=== PATIENT | female | born 1965 | race Caucasian/White ===

== ENCOUNTER 2018-02-01 17:02 | Emergency (ER) | payer OTHER ==
--- NOTE | 2018-02-01 17:35 | ERPHSYRPT ---
- History of Present Illness Time Seen by Provider: 02/01/18 17:33 Source: patient, family Patient Subjective Stated Complaint: Patient complains of sheila leg pain 01/13. Patient appointment with neurologist on 02/02/18, but her pain is so bad she can 't take it. This has been going on since June and has gotten worse. Triage Nursing Assessment: Patient ambulates into ER and transfers self to bed. Patient complains of sheila leg pain 01/13. Patient denies sheila feet hurting. Patient states her legs are constantly throbbing/burning. No visible areas noted to sheila legs. Pulses present. No redness/swelling noted. Patient has appointment with neurology on 02/02/18. Patient left work early today due to the pain. Physician History: 52 y/o white female presents with bilat lower ext pain since jun 2017. pt is taking requip and gabapentin. pt is also taking cymbalta. pt has an appt to see a neurologist tomorrow. pt admits to taking more of her medications than prescribed. pt denies trauma. pt has had demerol in the past. pt states morphine gives her nausea. pt has had an extensive work up over last 8 months and no dx found. Method of Injury: other (no injury) Occurred: other (chronic over 8 months) Quality: constant, burning, sharpness Severity of Pain-Max: moderate Severity of Pain-Current: moderate Lower Extremities Pain: leg: bilateral, knee: bilateral, thigh: bilateral Modifying Factors: Improves With: nothing Associated Symptoms: none Allergies/Adverse Reactions: Penicillins Allergy (Unknown, Verified 02/01/18 17:18) morphine Allergy (Verified 02/01/18 17:18) Home Medications: Alprazolam 1 mg [Xanax 1 mg] 1 mg PO Q4-6HPRN PRN 05/31/15 [History] Duloxetine HCl [Cymbalta] 1 mg PO DAILY 03/19/16 [History] Hx Tetanus, Diphtheria Vaccination/Date Given: Yes Hx Influenza Vaccination/Date Given: Yes Hx Pneumococcal Vaccination/Date Given: No Immunizations Up to Date: Yes - Review of Systems Constitutional: No Symptoms, No Fever, No Chills Eyes: No Symptoms, No Discharge, No Eye Pain Ears, Nose, & Throat: No Symptoms, No Ear Pain Respiratory: No Symptoms, No Cough, No Cyanosis, No Dyspnea, No Stridor, No Wheezing Cardiac: No Symptoms, No Chest Pain Abdominal/Gastrointestinal: No Symptoms, No Abdominal Pain, No Nausea, No Vomiting, No Diarrhea Genitourinary Symptoms: No Symptoms, No Dysuria, No Frequency, No Hematuria Musculoskeletal: Other (bilat lower ext pain thighs to ankles), No Back Pain, No Neck Pain, No Deformity, No Fall, No Injury Skin: No Symptoms Neurological: No Symptoms Psychological: No Symptoms Endocrine: No Symptoms Hematologic/Lymphatic: No Symptoms Immunological/Allergic: No Symptoms All Other Systems: Reviewed and Negative - Past Medical History Pertinent Past Medical History: Yes Neurological History: No Pertinent History, Stroke ENT History: No Pertinent History Cardiac History: Myocardial Infarction ([place]) Respiratory History: No Pertinent History Endocrine Medical History: No Pertinent History Musculoskeletal History: No Pertinent History GI Medical History: No Pertinent History History: No Pertinent History Psycho-Social History: Anxiety, Depression Female Reproductive Disorders: No Pertinent History - Past Surgical History Past Surgical History: Yes Neuro Surgical History: No Pertinent History Cardiac: No Pertinent History Respiratory: No Pertinent History Gastrointestinal: No Pertinent History Genitourinary: No Pertinent History Musculoskeletal: No Pertinent History Female Surgical History: Section - Social History Smoking Status: Never smoker Exposure to second hand smoke: Yes Drug Use: none Patient Lives Alone: Yes - Female History Hx Last Menstrual Period: 3 years ago Hx Now: No - Nursing Vital Signs Nursing Vital Signs: Initial Vital Signs Temperature 98.5 F 02/01/18 17:07 Pulse Rate 99 H 02/01/18 17:07 Respiratory Rate 18 02/01/18 17:07 Blood Pressure 129/91 02/01/18 17:07 O2 Sat by Pulse Oximetry 98 02/01/18 17:07 Pain Scale Pain Intensity 8 - Physical Exam General Appearance: mild distress, alert, anxiety Eyes, Ears, Nose, Throat Exam: normal ENT inspection Neck Exam: normal inspection, non-tender, supple, full range of motion Cardiovascular/Respiratory Exam: chest non-tender, normal breath sounds, regular rate/rhythm, heart sounds normal Gastrointestinal/Abdominal Exam: non-tender Back Exam: normal inspection Hips Exam: bilateral: non-tender, normal inspection, normal range of motion, no evidence of injury Legs Exam: bilateral leg: normal inspection, normal range of motion, no evidence of injury, other (tenderness) Knees Exam: bilateral knee: normal inspection, normal range of motion, no evidence of injury, other (tender) Ankle Exam: bilateral ankle: normal inspection, normal range of motion, no evidence of injury, other (tender) Foot Exam: bilateral foot: non-tender (normal nv exam, no infection), normal inspection, normal range of motion, no evidence of injury, other (tender) DTR - Lower Extremities Exam: ankle (R): 2+, ankle (L): 2+ Neuro/Tendon Exam: normal sensation, normal motor functions, no evidence tendon injury, No motor deficit, No sensory deficit Mental Status Exam: alert, oriented x 3, cooperative Skin Exam: normal color SpO2: 98 Oxygen Delivery: Room Air Ordered Tests: Medication Summary Discontinued Medications Generic Name Dose Route Start Last Admin Trade Name Freq PRN Reason Stop Dose Admin Diazepam 5 mg 02/01/18 17:59 Valium 5 Mg PO 02/01/18 18:00 STAT ONE Meperidine HCl 50 mg 02/01/18 17:59 Demerol 50 Mg IM 02/01/18 18:00 STAT ONE Methylprednisolone Sodium Succinate 125 mg 02/01/18 18:04 Solu-Medrol 125 Mg IM 02/01/18 18:05 STAT ONE Promethazine HCl 12.5 mg 02/01/18 18:00 Phenergan 25 Mg Inj IM 02/01/18 18:01 STAT ONE - Progress Progress: pain not gone completely Counseled pt/family regarding: diagnosis, need for follow-up - Departure Time of Disposition: 18:31 Departure Disposition: Home Clinical Impression: Chronic lower limb pain Condition: Stable Critical Care Time: No Referrals: AUNG HIDALGO [Primary Care Provider] - Additional Instructions: keep your appointment you have with your neurologist tomorrow for further management
[2018-02-01] MEDS ORDERED: Valium 5 MG PO ONE (17:59)
[2018-02-01] MEDS ORDERED: DEMEROL 50 MG IM ONE (17:59)
[2018-02-01] MEDS ORDERED: Phenergan 25 MG INJ IM ONE (18:00)
[2018-02-01] MEDS ORDERED: solu-MEDROL 125 MG IM ONE (18:04)
[2018-02-01] MEDS ORDERED: Phenergan 25 MG INJ ONE (18:12)
[2018-02-01] MEDS ORDERED: Valium 5 MG ONE (18:13)
[2018-02-01] MEDS ORDERED: solu-MEDROL 125 MG ONE (18:13)
[2018-02-01] MEDS ORDERED: DEMEROL 50 MG ONE (18:13)
[2018-02-01 19:03] VITALS: BP 120/70; PULSE 80; O2SAT 97
== END 2018-02-01 19:03 | disposition home or self-care (01) ==
LOC: ED 17:02
DX: M79.662 Pain in left lower leg (principal); M79.661 Pain in right lower leg; Z79.899 Other long term (current) drug therapy
CPT/HCPCS: 96372; 99284; J2175; J2550; J2930; A9270-GY

== ENCOUNTER 2020-01-04 12:18 | Emergency (ER) | payer OTHER ==
--- NOTE | 2020-01-04 12:35 | ERPHSYRPT ---
- History of Present Illness Time Seen by Provider: 01/04/20 12:35 Source: patient Exam Limitations: no limitations Patient Subjective Stated Complaint: eye pain Triage Nursing Assessment: pt to ED c/o L eye pain onset last night .states she was at work and noticed eye irritation and redness, took out contacts without releif. reports pain has worsened overnight and is 8/10 currently. unable to completely open eye. reports cloudy vision in L eye, does not have L contact in at this time. no issues with R eye currently. eye appears red and irritated. no drainage at this time. lights in eyes worsening pain. Physician History: This is a 54-year-old white female who noticed in the afternoon yesterday that she started to have a left eye irritation. It became reddened. She took her contact out. Pain came on in the eye began watering. The redness became worse. Patient describes the pain as sharp and stabbing. Patient has her contact out but the symptoms have not improved. Patient states that she did not injure her eye and does not recall anything going into her left eye. Patient states that she sees cloudiness and was having difficulty making out shapes of the left eye. Patient denies head injury she denies strokelike symptoms. She has no dizziness no chest pain no shortness of breath. Timing/Duration: yesterday Location: left eye Severity: moderate Apparent Injury: no Associated Symptoms: burning, sensitivity to light, redness Visual Assistive Devices: Contacts Chemical Exposure: No Trauma: No Welding Arc/Tanning Bed Exposure: No Allergies/Adverse Reactions: Penicillins Allergy (Unknown, Verified 01/04/20 12:35) morphine Allergy (Verified 01/04/20 12:35) Home Medications: Alprazolam 1 mg [Xanax 1 mg] 1 mg PO Q4-6HPRN PRN 05/31/15 [History] Duloxetine HCl [Cymbalta] 1 mg PO DAILY 03/19/16 [History] Hx Tetanus, Diphtheria Vaccination/Date Given: Yes Hx Influenza Vaccination/Date Given: Yes Hx Pneumococcal Vaccination/Date Given: Yes Immunizations Up to Date: Yes Travel Risk - International Travel Have you traveled outside of the country in past 3 weeks: No - Coronavirus Screening Are you exhibiting any of the following symptoms?: No Close contact with a COVID-19 positive Pt in past 14-21 Days: No - Review of Systems Constitutional: No Symptoms Eyes: Eye Pain (Left), Eye Redness (Left), Foreign Body Sensation Ears, Nose, & Throat: No Symptoms Respiratory: No Symptoms Cardiac: No Symptoms Abdominal/Gastrointestinal: No Symptoms Genitourinary Symptoms: No Symptoms Musculoskeletal: No Symptoms Skin: No Symptoms Neurological: No Symptoms Psychological: No Symptoms Endocrine: No Symptoms Hematologic/Lymphatic: No Symptoms Immunological/Allergic: No Symptoms All Other Systems: Reviewed and Negative - Past Medical History Pertinent Past Medical History: Yes Neurological History: No Pertinent History, Stroke ENT History: No Pertinent History Cardiac History: Myocardial Infarction ([place]) Respiratory History: No Pertinent History Endocrine Medical History: No Pertinent History Musculoskeletal History: No Pertinent History GI Medical History: No Pertinent History History: No Pertinent History Psycho-Social History: Anxiety, Depression Female Reproductive Disorders: No Pertinent History - Past Surgical History Past Surgical History: Yes Neuro Surgical History: No Pertinent History Cardiac: No Pertinent History Respiratory: No Pertinent History Gastrointestinal: No Pertinent History Genitourinary: No Pertinent History Musculoskeletal: No Pertinent History Female Surgical History: Section Other Surgical History: ovarian cyst removed at age 20 - Social History Smoking Status: Never smoker Exposure to second hand smoke: Yes Drug Use: none Patient Lives Alone: Yes - Female History Hx Now: No - Nursing Vital Signs Nursing Vital Signs: Initial Vital Signs Temperature 97.9 F 01/04/20 12:23 Pulse Rate 100 H 01/04/20 12:23 Respiratory Rate 18 01/04/20 12:23 Blood Pressure 170/84 01/04/20 12:23 O2 Sat by Pulse Oximetry 98 01/04/20 12:23 Pain Scale Pain Intensity 8 - Physical Exam Vision Acuity Degree Evaluation Phase: Corrected Vision Acuity Left Eye: unable to assess Eye Exam: right eye: normal inspection, abnormal EOM, left eye: PERRL, EOMI, conjunctival inflammation, corneal abrasion Ears, Nose, Throat Exam: normal ENT inspection, moist mucous membranes Neck Exam: normal inspection, non-tender, supple, full range of motion Respiratory Exam: normal breath sounds, lungs clear, airway intact, No chest tenderness, No respiratory distress Cardiovascular Exam: regular rate/rhythm, normal heart sounds, normal peripheral pulses Gastrointestinal Exam: No tenderness Extremity Exam: normal inspection, normal range of motion, pelvis stable Neurologic: alert, oriented x 3, cooperative, roll off driver II-XII nml as tested, nml cerebellar function, nml station & gait, sensation nml Skin Exam: normal color, warm, dry Lymphatic: No adenopathy SpO2 Interpretation: normal O2 Delivery: Room Air - Course Nursing assessment & vital signs reviewed: Yes Ordered Tests: Medication Summary Discontinued Medications Generic Name Dose Route Start Last Admin Trade Name Janet PRN Reason Stop Dose Admin Hydromorphone HCl 1 mg 01/04/20 12:51 01/04/20 13:02 Hydromorphone 1 Mg/Ml Ampule IM 01/04/20 12:52 1 mg STAT ONE Administration Hydromorphone HCl Confirm 01/04/20 12:56 Hydromorphone 1 Mg/Ml Ampule Administered 01/04/20 12:57 Dose 1 mg .ROUTE .STK-MED ONE Ondansetron HCl 4 mg 01/04/20 12:52 01/04/20 12:59 Zofran Odt 4 Mg PO 01/04/20 12:53 4 mg STAT ONE Administration Ondansetron HCl Confirm 01/04/20 12:55 Zofran Odt 4 Mg Administered 01/04/20 12:56 Dose 4 mg .ROUTE .STK-MED ONE Tetracaine HCl 4 ml 01/04/20 12:51 01/04/20 12:59 Tetracaine 0.5% Steri-Unit Elena OP 01/04/20 12:52 4 ml STAT STA Administration Tetracaine HCl Confirm 01/04/20 12:55 Tetracaine 0.5% Steri-Unit Elena Administered 01/04/20 12:56 Dose 4 ml OP .STK-MED ONE - Progress Progress: improved, pain not gone completely, re-examined Progress Note: 01/04/20 13:28 Medical decision making: This patient has at least a corneal abrasion on the left side. She has significant conjunctivitis. She has significant pain. She is had no direct trauma to the eye and does not recall anything getting into her eye. Patient will use topical erythromycin ophthalmic ointment, oral steroids and [place] pain medicine over the weekend. She has an appointment that we scheduled for her to see an drapery cutter machine, Dr. Vazquez at [facility] in [facility]. Her appointment is January 07, 2020 at 1 PM. Counseled pt/family regarding: diagnosis, need for follow-up - Departure Departure Disposition: Home Clinical Impression: Left corneal abrasion Condition: Stable Critical Care Time: No Referrals: JUNE VIRAMONTES MD [Primary Care Provider] - Additional Instructions: Use the topical eye ointment as prescribed. In addition, take the steroid and pain medication as prescribed. If your symptoms worsen you can always come back to the emergency department over the weekend. Specifically, you may want to go to [facility] where there is an drapery cutter machine on staff if your symptoms worsen. You have an appointment to see Dr. Vazquez, an drapery cutter machine at [facility] in [facility]. Your appointment is at 1 PM on January 07, 2020. Prescriptions: Hydrocodone/APAP 5/325 [[place] 5/325 mg] 1 each PO Q6H PRN PRN #10 tablet MDD 4 PRN Reason: Pain Prednisone 10 mg [Deltasone 10 mg] 10 mg PO TID #12 tablet Erythromycin Base 3.5 gm [Erythromycin 3.5 GM OPHTH.] 3.5 gm OP QID #1 tube
[2020-01-04] MEDS ORDERED: TETRACAINE 0.5% STERI-UNIT SOL OP STA (12:51)
[2020-01-04] MEDS ORDERED: Hydromorphone 1 mg/ml Ampule IM ONE (12:51)
[2020-01-04] MEDS ORDERED: ZOFRAN ODT 4 MG PO ONE (12:52)
[2020-01-04] MEDS ORDERED: TETRACAINE 0.5% STERI-UNIT SOL OP ONE (12:55)
[2020-01-04] MEDS ORDERED: ZOFRAN ODT 4 MG ONE (12:55)
[2020-01-04] MEDS ORDERED: Hydromorphone 1 mg/ml Ampule ONE (12:56)
[2020-01-04] MEDS ORDERED: Erythromycin 3.5 GM OPHTH. OP ONE (13:27)
[2020-01-04] MEDS ORDERED: DELTASONE 20 MG ONE (13:30)
[2020-01-04 13:40] VITALS: BP 132/85; PULSE 105; O2SAT 96
[2020-01-05] MEDS ORDERED: DELTASONE 20 MG PO ONE (13:26)
== END 2020-01-04 13:51 | disposition home or self-care (01) ==
LOC: ED 12:18
DX: S05.02XA Injury of conjunctiva and corneal abrasion without foreign body, left eye, initial encounter (principal); X58.XXXA Exposure to other specified factors, initial encounter; Y93.89 Activity, other specified; Y92.89 Other specified places as the place of occurrence of the external cause; H10.9 Unspecified conjunctivitis
CPT/HCPCS: 96372; 99284; J1170; Q0162; A9270-GY

== ENCOUNTER 2020-04-30 11:10 | Emergency (ER) | payer OTHER ==
--- NOTE | 2020-04-30 11:14 | ERPHSYRPT ---
- History of Present Illness Time Seen by Provider: 04/30/20 11:13 Source: patient Exam Limitations: no limitations Physician History: This is a 54-year-old white female who has depression and anxiety issues. It is worse around the holidays since she has lost her family members. She presents today with a desire to have an antianxiety medication to go along with her antidepression of medication. She was unable to see her primary care doctor. Patient states she is not homicidal or suicidal. Severity of Symptoms-Max: moderate Severity of Symptoms-Current: moderate Context related to: other ( family members. Holiday season.) Associated Symptoms: anxiety, depressed Previous symptoms: same symptoms as today Allergies/Adverse Reactions: Penicillins Allergy (Unknown, Verified 01/04/20 12:35) morphine Allergy (Verified 01/04/20 12:35) Home Medications: Alprazolam 1 mg [Xanax 1 mg] 1 mg PO Q4-6HPRN PRN 05/31/15 [History] Duloxetine HCl [Cymbalta] 1 mg PO DAILY 03/19/16 [History] Hx Tetanus, Diphtheria Vaccination/Date Given: Yes Hx Influenza Vaccination/Date Given: Yes Hx Pneumococcal Vaccination/Date Given: Yes Travel Risk - International Travel Have you traveled outside of the country in past 3 weeks: No - Coronavirus Screening Are you exhibiting any of the following symptoms?: No Close contact with a COVID-19 positive Pt in past 14-21 Days: No - Past Medical History Pertinent Past Medical History: Yes Neurological History: No Pertinent History, Stroke ENT History: No Pertinent History Cardiac History: Myocardial Infarction ([place]) Respiratory History: No Pertinent History Endocrine Medical History: No Pertinent History Musculoskeletal History: No Pertinent History GI Medical History: No Pertinent History History: No Pertinent History Psycho-Social History: Anxiety, Depression Female Reproductive Disorders: No Pertinent History - Past Surgical History Past Surgical History: Yes Neuro Surgical History: No Pertinent History Cardiac: No Pertinent History Respiratory: No Pertinent History Gastrointestinal: No Pertinent History Genitourinary: No Pertinent History Musculoskeletal: No Pertinent History Female Surgical History: Section Other Surgical History: ovarian cyst removed at age 20 - Social History Smoking Status: Never smoker Exposure to second hand smoke: Yes Drug Use: none Patient Lives Alone: Yes - Review of Systems Constitutional: No Symptoms Eyes: No Symptoms Ears, Nose, & Throat: No Symptoms Respiratory: No Symptoms Cardiac: No Symptoms Abdominal/Gastrointestinal: No Symptoms Genitourinary Symptoms: No Symptoms Musculoskeletal: No Symptoms Skin: No Symptoms Neurological: No Symptoms Psychological: Anxiety, Depression Endocrine: No Symptoms Hematologic/Lymphatic: No Symptoms Immunological/Allergic: No Symptoms All Other Systems: Reviewed and Negative - Nursing Vital Signs Nursing Vital Signs: Initial Vital Signs Temperature 98.2 F 04/30/20 11:31 Pulse Rate 79 04/30/20 11:31 Respiratory Rate 18 04/30/20 11:31 Blood Pressure 127/58 04/30/20 11:31 O2 Sat by Pulse Oximetry 99 04/30/20 11:31 Pain Scale Pain Intensity 0 - Physical Exam General Appearance: no apparent distress, alert, anxiety Eyes, Ears, Nose, Throat Exam: normal ENT inspection, moist mucous membranes Neck Exam: normal inspection, non-tender, supple, full range of motion Respiratory Exam: normal breath sounds, lungs clear, airway intact, No chest te nderness, No respiratory distress Cardiovascular Exam: regular rate/rhythm, normal heart sounds, normal peripheral pulses Gastrointestinal/Abdominal Exam: soft, normal bowel sounds, No tenderness Extremities Exam: normal inspection, normal range of motion, No evidence of injury Neurological Exam: alert, tar leveler II-XII nml as tested, oriented x 3, anxious, depressed affect Appearance: appropriate appearance, appropriate insight Behavior/Eye Contact/Speech: alert & cooperative, good eye contact Thoughts/Hallucinations: normal thought pattern, no apparent hallucination Skin Exam: normal color, warm, dry SpO2 Interpretation: normal O2 Delivery: Room Air - Course Nursing assessment & vital signs reviewed: Yes - Progress Progress: unchanged Counseled pt/family regarding: diagnosis, need for follow-up - Departure Departure Disposition: Home Clinical Impression: Anxiety, Depression Condition: Stable Critical Care Time: No Referrals: JUNE VIRAMONTES MD [Primary Care Provider] - Additional Instructions: Take your medication as prescribed. Follow-up with your primary care doctor today to make arrangements for follow-up appointment. Prescriptions: Lorazepam 0.5 mg [Ativan 0.5 MG] 0.5 mg PO Q12H PRN PRN #5 tablet PRN Reason: Anxiety
[2020-04-30 12:14] VITALS: BP 120/54; PULSE 62; O2SAT 98
== END 2020-04-30 12:17 | disposition home or self-care (01) ==
LOC: ED 11:10
DX: F41.9 Anxiety disorder, unspecified (principal); F32.9 Major depressive disorder, single episode, unspecified
CPT/HCPCS: 99283

== ENCOUNTER 2020-05-06 14:52 | Emergency (ER) | payer OTHER ==
[2020-05-06] MEDS ORDERED: Sodium Chloride 0.9% 1000 ML 1,000 ML IV STA (15:33)
[2020-05-06] MEDS ORDERED: Zofran 4 MG/2 ML VIAL IV ONE (15:33)
[2020-05-06] MEDS ORDERED: Sodium Chloride 0.9% 1000 ML 1,000 ML ONE (15:36)
[2020-05-06] MEDS ORDERED: Zofran 4 MG/2 ML VIAL ONE (15:36)
[2020-05-06 16:01] LABS: Absolute Neutrophil Ct (ANC) 6.03 (1.4-6.9); BASOPHIL % 0.2 % (0.0-0.4); Basophil (Absolute #) 0.02 (0-0.4); Eosinophil (Absolute #) 0.09 (0-0.5); Hematocrit 41.6 % (35-47); Hemoglobin 13.7 gm/dl (12.0-16.0); Lymphocyte (Absolute #) 1.53 (1.0-4.6); Lymphocytes % 17.8 % (24.0-44.0); Mean Cell Volume 91.4 fl (78-100); Mean Corpuscular Hemoglobin 30.1 pg (26-32); Mean Corpuscular Hgb Concent. 32.9 g/dl (32-36); Mean Platelet Volume 10.3 fl (7.5-11.0); Monocyte (Absolute #) 0.92 (0.0-1.3); Monocytes % 10.7 % (0.0-12.0); Neutrophil % 70.3 % (36.0-66.0); Platelet Count 397 K/mm3 (150-450); Red Blood Count 4.55 M/mm3 (4.1-5.4); Red Cell Distribution Width 12.7 % (11.5-14.0); White Blood Count 8.6 K/mm3 (4.0-10.5)
--- NOTE | 2020-05-06 16:07 | ERPHSYRPT ---
- History of Present Illness Historian: patient Patient Subjective Stated Complaint: vomiting Triage Nursing Assessment: pt to ED c/o abd pain 5/10 and vomiting x 4 days. reports multiple episodes emesis daily. last PO intake fluids this am. denies urinary or bowel issues currently. abd tender to palp. reports emesis is bile d/t decreased intake. reports normal urinary output for pt. Physician History: 54 yo wf w N/V x 1 wk. Pt has mild subxyphoid pain rated a 3 which she states that is due to vomiting. Pt denies hematemesis/diarrhea/melena/hematochezia/dysuria/hematuria/fever/cough/chest pain. Pt was recently seen in ER for chest pain w neg workup. Timing/Duration: other (1wk) Activities at Onset: rest Quality: aching Abdominal Pain Onset Location: generalized abdomen Pain Radiation: no radiation Severity of Pain-Max: mild Severity of Pain-Current: mild Modifying Factors: Improves With: nothing, vomiting Associated Symptoms: loss of appetite, nausea, vomiting, weakness, No back, No chest pain, No diaphoresis, No diarrhea, No fever/chills, No fatigue, No headache, No heartburn, No neck pain, No rash, No shortness of breath, No syncope Previous symptoms: no prior history Allergies/Adverse Reactions: Penicillins Allergy (Unknown, Verified 05/06/20 15:15) morphine Allergy (Verified 05/06/20 15:15) Home Medications: Alprazolam 1 mg [Xanax 1 mg] 1 mg PO Q4-6HPRN PRN 05/31/15 [History] Duloxetine HCl [Cymbalta] 1 mg PO DAILY 03/19/16 [History] Hx Tetanus, Diphtheria Vaccination/Date Given: Yes Hx Influenza Vaccination/Date Given: Yes Hx Pneumococcal Vaccination/Date Given: Yes Travel Risk - International Travel Have you traveled outside of the country in past 3 weeks: No - Coronavirus Screening Are you exhibiting any of the following symptoms?: Yes Symptoms: Vomiting/Diarrhea, Loss of Taste or Smell, Headaches/Body Aches/ Fatigue Close contact with a COVID-19 positive Pt in past 14-21 Days: No - Review of Systems Constitutional: Fatigue, Weakness, No Fever, No Chills, No Lethargy, No Malaise, No Night Sweats, No Weight Loss Eyes: No Symptoms Ears, Nose, & Throat: No Symptoms Respiratory: No Symptoms Cardiac: No Symptoms Abdominal/Gastrointestinal: Abdominal Pain, Nausea, Vomiting, Appetite Changes, No Diarrhea, No Constipation, No Hematemesis, No Hematochezia, No Melena, No Dysphagia Genitourinary Symptoms: No Symptoms Musculoskeletal: No Symptoms Skin: No Symptoms Neurological: No Symptoms Psychological: No Symptoms Endocrine: No Symptoms Hematologic/Lymphatic: No Symptoms Immunological/Allergic: No Symptoms - Past Medical History Pertinent Past Medical History: Yes Neurological History: Stroke ENT History: No Pertinent History Cardiac History: Myocardial Infarction (HI) Respiratory History: No Pertinent History Endocrine Medical History: No Pertinent History Musculoskeletal History: No Pertinent History GI Medical History: No Pertinent History History: No Pertinent History Psycho-Social History: Anxiety, Depression Female Reproductive Disorders: No Pertinent History Other Medical History: possible HI, pt unsure - 2014 - Past Surgical History Past Surgical History: Yes Neuro Surgical History: No Pertinent History Cardiac: No Pertinent History Respiratory: No Pertinent History Gastrointestinal: No Pertinent History Genitourinary: No Pertinent History Musculoskeletal: No Pertinent History Female Surgical History: Section Other Surgical History: ovarian cyst removed at age 20 - Social History Smoking Status: Never smoker Exposure to second hand smoke: Yes Drug Use: none Patient Lives Alone: Yes Significant Family History: no pertinent family hx - Female History Hx Now: No (ablasion) - Nursing Vital Signs Nursing Vital Signs: Initial Vital Signs Temperature 98.2 F 05/06/20 15:02 Pulse Rate 112 H 05/06/20 15:02 Respiratory Rate 20 05/06/20 15:02 Blood Pressure 152/101 05/06/20 15:02 O2 Sat by Pulse Oximetry 98 05/06/20 15:02 Pain Scale Pain Intensity 5 - Physical Exam General Appearance: no apparent distress Eye Exam: PERRL/EOMI, eyes nml inspection, No scleral icterus, No pale conjunctivae Ears, Nose, Throat Exam: normal ENT inspection, TMs normal, pharynx normal, moist mucous membranes, No dry mucous membranes Neck Exam: normal inspection, non-tender, supple, full range of motion, No m eningismus, No mass, No Brudzinski, No Kernig's, No carotid bruit Respiratory Exam: normal breath sounds, lungs clear, airway intact, No chest tenderness, No respiratory distress Cardiovascular Exam: tachycardia, No murmur Gastrointestinal/Abdomen Exam: soft, normal bowel sounds, tenderness (Mild, diffuse) Pelvic Exam: not done Back Exam: normal inspection, normal range of motion, No CVA tenderness Extremity Exam: normal inspection, normal range of motion Neurologic Exam: alert, oriented x 3, cooperative, equity research associate II-XII nml as tested, normal mood/affect, nml cerebellar function, nml station & gait, sensation nml, No motor deficits, No sensory deficit Skin Exam: normal color, warm, dry, No rash Lymphatic Exam: No adenopathy SpO2 Interpretation: normal SpO2: 98 O2 Delivery: Room Air - Course Nursing assessment & vital signs reviewed: Yes Ordered Tests: Active Orders 24 hr Category Date Time Status AMYLASE Stat Lab 05/06/20 15:35 Completed CBC W DIFF Stat Lab 05/06/20 15:35 Completed CMP Stat Lab 05/06/20 15:35 Completed CULTURE,URINE Stat Lab 05/06/20 16:01 Received HCG,QUALITATIVE URINE Stat Lab 05/06/20 16:11 Completed LIPASE Stat Lab 05/06/20 15:35 Completed TROPONIN Q3H Lab 05/06/20 16:15 Completed UA W/RFX UR CULTURE Stat Lab 05/06/20 16:01 Completed Urine Triage Profile Stat Lab 05/06/20 16:01 Completed Medication Summary Discontinued Medications Generic Name Dose Route Start Last Admin Trade Name Janet PRN Reason Stop Dose Admin Sodium Chloride 1,000 mls @ 999 mls/hr 05/06/20 15:33 05/06/20 16:40 Sodium Chloride 0.9% 1000 Ml IV 05/06/20 16:33 Infused .Q1H1M STA Infusion Sodium Chloride Confirm 05/06/20 15:36 Sodium Chloride 0.9% 1000 Ml Administered 05/06/20 15:37 Dose 1,000 mls @ ud .ROUTE .STK-MED ONE Ondansetron HCl 4 mg 05/06/20 15:33 05/06/20 15:38 Zofran 4 Mg/2 Ml Vial IV 05/06/20 15:34 4 mg STAT ONE Administration Ondansetron HCl Confirm 05/06/20 15:36 Zofran 4 Mg/2 Ml Vial Administered 05/06/20 15:37 Dose 4 mg .ROUTE .STK-MED ONE Lab/Rad Data: Laboratory Result Diagrams 05/06/20 15:35 05/06/20 15:35 Laboratory Results 05/06/20 05/06/20 05/06/20 Range/Units 16:15 16:11 16:01 WBC (4.0-10.5) K/mm3 RBC (4.1-5.4) M/mm3 Hgb (12.0-16.0) gm/dl Hct (35-47) % MCV (78-100) fl MCH (26-32) pg MCHC (32-36) g/dl RDW (11.5-14.0) % Plt Count (150-450) K/mm3 MPV (7.5-11.0) fl Gran % (36.0-66.0) % Eos # (Auto) (0-0.5) Absolute Lymphs (auto) (1.0-4.6) Absolute Monos (auto) (0.0-1.3) Lymphocytes % (24.0-44.0) % Monocytes % (0.0-12.0) % Eosinophils % (0.00-5.0) % Basophils % (0.0-0.4) % Absolute Granulocytes (1.4-6.9) Basophils # (0-0.4) Sodium (137-145) mmol/L Potassium (3.5-5.1) mmol/L Chloride (98-107) mmol/L Carbon Dioxide (22-30) mmol/L Anion Gap (5-15) MEQ/L BUN (7-17) mg/dL Creatinine (0.52-1.04) mg/dL Estimated GFR ML/MIN Glucose (74-106) mg/dL Calcium (8.4-10.2) mg/dL Total Bilirubin (0.2-1.3) mg/dL AST (14-36) U/L ALT (0-35) U/L Alkaline Phosphatase (38-126) U/L Troponin I 0.013 (0.000-0.034) ng/mL Serum Total Protein (6.3-8.2) g/dL Albumin (3.5-5.0) g/dL Amylase (30-110) U/L Lipase (23-300) U/L Urine Color (YELLOW) Urine Appearance (CLEAR) Urine pH (5-6) Ur Specific [place] (1.005-1.025) Urine Protein (Negative) Urine Ketones (NEGATIVE) Urine Blood (0-5) [place] Urine Nitrite (NEGATIVE) Urine Bilirubin (NEGATIVE) Urine Urobilinogen (0-1) mg/dL Ur Leukocyte Esterase (NEGATIVE) Urine WBC (Auto) (0-5) /HPF Urine RBC (Auto) (0-2) /HPF U Epithel Cells (Auto) (FEW) /HPF Urine Bacteria (Auto) (NEGATIVE) /HPF Urine Culture Reflexed (NO) Urine Glucose (NEGATIVE) mg/dL Urine HCG, Qual NEGATIVE (Negative) Urine Opiates Level NEGATIVE (NEGATIVE) Ur Methadone NEGATIVE (NEGATIVE) Urine Barbiturates NEGATIVE (NEGATIVE) Ur Phencyclidine (PCP) NEGATIVE (NEGATIVE) Urine Amphetamine NEGATIVE (NEGATIVE) U Benzodiazepine Level POSITIVE (NEGATIVE) Urine Cocaine NEGATIVE (NEGATIVE) Urine Marijuana (THC) NEGATIVE (NEGATIVE) 05/06/20 05/06/20 05/06/20 Range/Units 16:01 15:35 15:35 WBC 8.6 (4.0-10.5) K/mm3 RBC 4.55 (4.1-5.4) M/mm3 Hgb 13.7 (12.0-16.0) gm/dl Hct 41.6 (35-47) % MCV 91.4 (78-100) fl MCH 30.1 (26-32) pg MCHC 32.9 (32-36) g/dl RDW 12.7 (11.5-14.0) % Plt Count 397 (150-450) K/mm3 MPV 10.3 (7.5-11.0) fl Gran % 70.3 H (36.0-66.0) % Eos # (Auto) 0.09 (0-0.5) Absolute Lymphs (auto) 1.53 (1.0-4.6) Absolute Monos (auto) 0.92 (0.0-1.3) Lymphocytes % 17.8 L (24.0-44.0) % Monocytes % 10.7 (0.0-12.0) % Eosinophils % 1.0 (0.00-5.0) % Basophils % 0.2 (0.0-0.4) % Absolute Granulocytes 6.03 (1.4-6.9) Basophils # 0.02 (0-0.4) Sodium 137 (137-145) mmol/L Potassium 4.0 (3.5-5.1) mmol/L Chloride 105 (98-107) mmol/L Carbon Dioxide 25 (22-30) mmol/L Anion Gap 10.9 (5-15) MEQ/L BUN 9 (7-17) mg/dL Creatinine 0.76 (0.52-1.04) mg/dL Estimated GFR > 60.0 ML/MIN Glucose 131 H (74-106) mg/dL Calcium 10.0 (8.4-10.2) mg/dL Total Bilirubin 0.90 (0.2-1.3) mg/dL AST 32 (14-36) U/L ALT 31 (0-35) U/L Alkaline Phosphatase 147 H (38-126) U/L Troponin I (0.000-0.034) ng/mL Serum Total Protein 8.1 (6.3-8.2) g/dL Albumin 4.1 (3.5-5.0) g/dL Amylase 58 (30-110) U/L Lipase 34 (23-300) U/L Urine Color YELLOW (YELLOW) Urine Appearance SLIGHTLY CLOUDY (CLEAR) Urine pH 8.0 (5-6) Ur Specific [place] 1.011 (1.005-1.025) Urine Protein NEGATIVE (Negative) Urine Ketones NEGATIVE (NEGATIVE) Urine Blood NEGATIVE (0-5) [place] Urine Nitrite POSITIVE (NEGATIVE) Urine Bilirubin NEGATIVE (NEGATIVE) Urine Urobilinogen NEGATIVE (0-1) mg/dL Ur Leukocyte Esterase NEGATIVE (NEGATIVE) Urine WBC (Auto) 3-5 (0-5) /HPF Urine RBC (Auto) NONE (0-2) /HPF U Epithel Cells (Auto) NONE (FEW) /HPF Urine Bacteria (Auto) MODERATE (NEGATIVE) /HPF Urine Culture Reflexed YES (NO) Urine Glucose NEGATIVE (NEGATIVE) mg/dL Urine HCG, Qual (Negative) Urine Opiates Level (NEGATIVE) Ur Methadone (NEGATIVE) Urine Barbiturates (NEGATIVE) Ur Phencyclidine (PCP) (NEGATIVE) Urine Amphetamine (NEGATIVE) U Benzodiazepine Level (NEGATIVE) Urine Cocaine (NEGATIVE) Urine Marijuana (THC) (NEGATIVE) - Progress Progress: improved Progress Note: 05/06/20 17:02 1L NS bolus/4mg IV Zofran Pt able to hold down liquids before DC. Counseled pt/family regarding: lab results, diagnosis, need for follow-up, rad results - Departure Departure Disposition: Home Clinical Impression: UTI (urinary tract infection), Nausea & vomiting Condition: Stable Critical Care Time: No Referrals: JUNE VIRAMONTES MD [Primary Care Provider] - Instructions: Urinary Tract Infection, Adult (DC), Nausea and Vomiting, Adult (DC) Additional Instructions: Fluids Phenergan for nausea/vomiting Start macrobid twice a day for 1 week Return to ER for inability to hold down fluids/increasing abdominal pain/Temperature greater than than 100.5 Prescriptions: Nitrofurantoin Monohyd/M-Cryst [Macrobid 100 mg Capsule] 100 mg PO BID #14 capsule Promethazine HCl 25 mg [Phenergan 25 mg] 25 mg PO Q4-6HPRN PRN #10 tablet PRN Reason: Nausea/Vomiting
[2020-05-06 16:08] LABS: ALBUMIN 4.1 g/dL (3.5-5.0); ALKALINE PHOSPHATASE 147 U/L (38-126); AMYLASE 58 U/L (30-110); ANION GAP 10.9 MEQ/L (5-15); BLOOD UREA NITROGEN 9 mg/dL (7-17); CHLORIDE 105 mmol/L (98-107); Carbon Dioxide 25 mmol/L (22-30); Creatinine 1 0.76 mg/dL (0.52-1.04); EST GLOMERULAR FILTRATION RATE > 60.0 ML/MIN; Glucose 131 mg/dL (74-106); LIPASE 34 U/L (23-300); SGOT/AST 32 U/L (14-36); SGPT/ALT 31 U/L (0-35); SODIUM 137 mmol/L (137-145); Total Protein 8.1 g/dL (6.3-8.2)
[2020-05-06 16:16] LABS: Appearance SLIGHTLY CLOUDY (CLEAR); Bacteria MODERATE /HPF (NEGATIVE); Bilirubin NEGATIVE (NEGATIVE); Blood NEGATIVE Ery/ul (0-5); Glucose NEGATIVE (NEGATIVE); Ketones NEGATIVE (NEGATIVE); Leukocyte Esterase NEGATIVE (NEGATIVE); Nitrite POSITIVE (NEGATIVE); Protein,Urine Dip NEGATIVE (Negative); Specific Gravity 1.011 (1.005-1.025); Urobilinogen NEGATIVE mg/dL (0-1)
[2020-05-06 16:23] LABS: Amphetamine,Urine NEGATIVE (NEGATIVE); Barbiturate,Urine NEGATIVE (NEGATIVE); Benzodiazepine,Urine POSITIVE (NEGATIVE); Cocaine,Urine NEGATIVE (NEGATIVE); Methadone,Urine NEGATIVE (NEGATIVE); Opiate,Urine NEGATIVE (NEGATIVE); PCP,Urine NEGATIVE (NEGATIVE); THC,Urine NEGATIVE (NEGATIVE)
[2020-05-06 17:06] VITALS: BP 118/86; PULSE 86; O2SAT 98
== END 2020-05-06 17:46 | disposition home or self-care (01) ==
LOC: ED 14:52
DX: N39.0 Urinary tract infection, site not specified (principal); R11.2 Nausea with vomiting, unspecified
CPT/HCPCS: 36000; 36415; 80053; 80307; 81001; 82150; 83690; 84484; 84703; 85025; 87077; 87086; 87186; 96360; 96374; 99284; J2405

== ENCOUNTER 2020-05-17 05:19 | Emergency (ER) | payer OTHER ==
[2020-05-17] MEDS ORDERED: Ativan 2 MG/1 ML VIAL IV ONE (05:40)
[2020-05-17] MEDS ORDERED: Sodium Chloride 0.9% 1000 ML 1,000 ML IV STA ×3 (05:40→08:48)
[2020-05-17] MEDS ORDERED: Zofran 4 MG/2 ML VIAL IV ONE (05:40)
--- NOTE | 2020-05-17 05:40 | ERPHSYRPT ---
- History of Present Illness Source: patient Exam Limitations: clinical condition Timing/Duration: today Context related to: living circumstances Suicidal thoughts: other (None) Associated Symptoms: agitated, anxiety, confused, hallucinating (Tactile) Previous symptoms: same symptoms as today Hx Tetanus, Diphtheria Vaccination/Date Given: Yes Hx Influenza Vaccination/Date Given: Yes Hx Pneumococcal Vaccination/Date Given: Yes <BENI RASHID - Last Filed: 05/17/20 07:04> <VICTORIA DEE - Last Filed: 05/17/20 11:53> - History of Present Illness Time Seen by Provider: 05/17/20 05:35 Physician History: This is a 54-year-old white female who has significant anxiety disorder as well as depression who states that she has been off her medications for 3 to 4 weeks. She denies illicit drug use but presents very anxious and agitated. Patient denies being suicidal or homicidal. Patient states that she has worsening anxiety and depression around the holidays because she has no family members. She also felt as though there was a rubber band around her teeth and that she believes she took a knife to help cut her teeth out in order to get the rubber band off. She was here approximately 2 to 3 weeks ago stating that she was on her antidepressive medicine but was out of her anxiety medication. Patient told me on her visit here on 04/30/2020 that she has no family members they were all . However today she states that her mother and brother have but her father is alive but they do not speak and she has 2 children that are alive but do not live at the house. Patient denies chest pain she denies abdominal pain. (BENI RASHID) Allergies/Adverse Reactions: Penicillins Allergy (Unknown, Verified 05/17/20 06:15) morphine Allergy (Verified 05/17/20 06:15) Home Medications: Alprazolam 1 mg [Xanax 1 mg] 1 mg PO Q4-6HPRN PRN 05/31/15 [History] Duloxetine HCl [Cymbalta] 1 mg PO DAILY 03/19/16 [History] Travel Risk - International Travel Have you traveled outside of the country in past 3 weeks: No - Coronavirus Screening Are you exhibiting any of the following symptoms?: No Close contact with a COVID-19 positive Pt in past 14-21 Days: No <BENI RASHID - Last Filed: 05/17/20 07:04> - Past Medical History Pertinent Past Medical History: Yes Neurological History: Stroke ENT History: No Pertinent History Cardiac History: Myocardial Infarction ([place]) Respiratory History: No Pertinent History Endocrine Medical History: No Pertinent History Musculoskeletal History: No Pertinent History GI Medical History: No Pertinent History History: No Pertinent History Psycho-Social History: Anxiety, Depression Female Reproductive Disorders: No Pertinent History Other Medical History: possible [place], pt unsure - 2015 - Past Surgical History Past Surgical History: Yes Neuro Surgical History: No Pertinent History Cardiac: No Pertinent History Respiratory: No Pertinent History Gastrointestinal: No Pertinent History Genitourinary: No Pertinent History Musculoskeletal: No Pertinent History Female Surgical History: Section Other Surgical History: ovarian cyst removed at age 20 - Social History Smoking Status: Never smoker Exposure to second hand smoke: Yes Drug Use: none Patient Lives Alone: Yes Significant Family History: no pertinent family hx <BENI RASHID - Last Filed: 05/17/20 07:04> - Review of Systems Constitutional: No Symptoms Eyes: No Symptoms Ears, Nose, & Throat: No Symptoms Respiratory: No Symptoms Cardiac: No Symptoms Abdominal/Gastrointestinal: No Symptoms Genitourinary Symptoms: No Symptoms Musculoskeletal: No Symptoms Skin: No Symptoms Neurological: No Symptoms Psychological: Anxiety, Depression Endocrine: No Symptoms Hematologic/Lymphatic: No Symptoms Immunological/Allergic: No Symptoms All Other Systems: Reviewed and Negative <BENI RASHID - Last Filed: 05/17/20 07:04> - Physical Exam General Appearance: mild distress, alert, anxiety Eyes, Ears, Nose, Throat Exam: normal ENT inspection, moist mucous membranes Neck Exam: normal inspection, non-tender, supple, full range of motion Respiratory Exam: normal breath sounds, lungs clear, airway intact, No chest tenderness, No respiratory distress Cardiovascular Exam: regular rate/rhythm, normal heart sounds, normal peripheral pulses Gastrointestinal/Abdominal Exam: soft, normal bowel sounds, No tenderness Extremities Exam: normal inspection, normal range of motion, evidence of injury Current Suicidality: denies suicide plan Neurological Exam: alert, oriented x 3, agitated, anxious Appearance: disheveled, impaired insight Behavior/Eye Contact/Speech: increased rate of speech Thoughts/Hallucinations: flight of ideas, tactile hallucinations Skin Exam: other (Scratch moran on face arms and torso anteriorly) SpO2 Interpretation: normal O2 Delivery: Room Air <BENI RASHID - Last Filed: 05/17/20 07:04> - Nursing Vital Signs Nursing Vital Signs: Initial Vital Signs Temperature 98.1 F 05/17/20 05:44 Pulse Rate 63 05/17/20 05:44 Respiratory Rate 26 H 05/17/20 05:44 Blood Pressure 139/75 05/17/20 05:44 O2 Sat by Pulse Oximetry 98 05/17/20 05:44 Pain Scale Pain Intensity 0 - Course Nursing assessment & vital signs reviewed: Yes EKG Interpreted by Me: RATE (112), Sinus Tach, Other (EKG dated March 2016 there is new findings on today's EKG. Patient now has sinus tachycardia and ventricular bigeminy. I do not see any acute ischemic changes on today's EKG) <BENI RASHID - Last Filed: 05/17/20 07:04> - Course EKG Interpreted by Me: Other <VICTORIA DEE - Last Filed: 05/17/20 11:53> Ordered Tests: Active Orders 24 hr Category Date Time Status Clean Catch Urine Specimen STAT Care 05/17/20 05:40 Active EKG-ER Only STAT Care 05/17/20 05:40 Active IV Insertion STAT Care 05/17/20 05:40 Active POCT Glucose Check STAT Care 05/17/20 08:04 Active CHEST 1 VIEW (PORTABLE) Stat Exams 05/17/20 07:53 Taken HEAD WITHOUT CONTRAST [CT] Stat Exams 05/17/20 05:41 Taken ACETAMINOPHEN Stat Lab 05/17/20 05:55 Completed CBC W DIFF Stat Lab 05/17/20 05:55 Completed CK (IN-HOUSE) [CK-Creatinine Phosphokinase] Stat Lab 05/17/20 08:35 Completed CMP Stat Lab 05/17/20 05:55 Completed CULTURE,URINE Stat Lab 05/17/20 05:40 Received ETHYL ALCOHOL Stat Lab 05/17/20 05:55 Completed Lactic Acid Routine Lab 05/17/20 10:06 Completed Lactic Acid Stat Lab 05/17/20 08:03 Completed MAGNESIUM Stat Lab 05/17/20 06:40 Completed NT PRO BNP Stat Lab 05/17/20 06:40 Completed POCT GLUCOSE Stat Lab 05/17/20 08:27 Completed POCT GLUCOSE Stat Lab 05/17/20 08:31 Completed SALICYLATE Stat Lab 05/17/20 05:55 Completed T4 (Thyroxine) Stat Lab 05/17/20 Completed TROPONIN Q3H Lab 05/17/20 06:45 Completed TROPONIN Q3H Lab 05/17/20 09:42 Completed TROPONIN Q3H Lab 05/17/20 12:45 Ordered TROPONIN Q3H Lab 05/17/20 15:45 Ordered TROPONIN Q3H Lab 05/17/20 18:45 Ordered TSH [TSH, 3RD Generation] Stat Lab 05/17/20 06:08 Completed Urine Triage Profile Stat Lab 05/17/20 05:40 Completed VBG [VENOUS BLOOD GAS] Stat Lab 05/17/20 07:53 Completed Transfer Order Routine Transfer 05/17/20 Ordered Medication Summary Generic Name Dose Route Start Last Admin Trade Name Freq PRN Reason Stop Dose Admin Insulin Human Regular 100 unit 100 mls @ 10.07 mls/hr 05/17/20 08:20 / Sodium Chloride IV 06/16/20 08:19 .Q9H56M PRN DKA/HYPERGLYCEMIA Protocol 0.1 UNIT/KG/HR Potassium Chloride 20 meq in 100 mls @ 50 mls/hr 05/17/20 08:30 05/17/20 08:48 Potassium Chloride 20 Meq In Water 100ml IV 05/17/20 12:29 50 mls/hr Q2H MIKO Administration Discontinued Medications Generic Name Dose Route Start Last Admin Trade Name Freq PRN Reason Stop Dose Admin Sodium Chloride 1,000 mls @ 999 mls/hr 05/17/20 05:40 05/17/20 07:46 Sodium Chloride 0.9% 1000 Ml IV 05/17/20 06:40 Infused .Q1H1M STA Infusion Sodium Chloride Confirm 05/17/20 05:50 Sodium Chloride 0.9% 1000 Ml Administered 05/17/20 05:51 Dose 1,000 mls @ ud .ROUTE .STK-MED ONE Sodium Chloride 1,000 mls @ 999 mls/hr 05/17/20 08:03 05/17/20 09:35 Sodium Chloride 0.9% 1000 Ml IV 05/17/20 09:03 Infused .Q1H1M STA Infusion Magnesium Sulfate/Dextrose 100 mls @ 200 mls/hr 05/17/20 08:04 05/17/20 08:21 Magnesium 1 Gm / 100 Ml D5w IV 05/17/20 08:33 200 mls/hr STAT ONE Administration Magnesium Sulfate/Dextrose Confirm 05/17/20 08:18 Magnesium 1 Gm / 100 Ml D5w Administered 05/17/20 08:19 Dose 100 mls @ ud IV .STK-MED ONE Sodium Chloride Confirm 05/17/20 08:18 Sodium Chloride 0.9% 1000 Ml Administered 05/17/20 08:19 Dose 1,000 mls @ ud .ROUTE .STK-MED ONE Sodium Chloride 1,000 mls @ 999 mls/hr 05/17/20 08:48 05/17/20 10:59 Sodium Chloride 0.9% 1000 Ml IV 05/17/20 09:48 Infused .Q1H1M STA Infusion Levofloxacin/Dextrose 500 mg in 100 mls @ 100 mls/hr 05/17/20 08:52 05/17/20 10:59 Levofloxacin 500mg/100ml D5w IV 05/17/20 09:51 Infused STAT STA Infusion Sodium Chloride Confirm 05/17/20 09:36 Sodium Chloride 0.9% 1000 Ml Administered 05/17/20 09:37 Dose 1,000 mls @ ud .ROUTE .STK-MED ONE Levofloxacin/Dextrose Confirm 05/17/20 09:36 Levofloxacin 500mg/100ml D5w Administered 05/17/20 09:37 Dose 500 mg in 100 mls @ ud IV .STK-MED ONE Lorazepam 1 mg 05/17/20 05:40 05/17/20 05:52 Ativan 2 Mg/1 Ml Vial IV 05/17/20 05:41 1 mg STAT ONE Administration Lorazepam Confirm 05/17/20 05:50 Ativan 2 Mg/1 Ml Vial Administered 05/17/20 05:51 Dose 2 mg .ROUTE .STK-MED ONE Lorazepam 1 mg 05/17/20 08:03 05/17/20 08:21 Ativan 2 Mg/1 Ml Vial IM 05/17/20 08:04 1 mg STAT ONE Administration Lorazepam Confirm 05/17/20 08:18 Ativan 2 Mg/1 Ml Vial Administered 05/17/20 08:19 Dose 2 mg .ROUTE .STK-MED ONE Ondansetron HCl 4 mg 05/17/20 05:40 05/17/20 05:52 Zofran 4 Mg/2 Ml Vial IV 05/17/20 05:41 4 mg STAT ONE Administration Ondansetron HCl Confirm 05/17/20 05:50 Zofran 4 Mg/2 Ml Vial Administered 05/17/20 05:51 Dose 4 mg .ROUTE .STK-MED ONE Potassium Chloride 40 meq 05/17/20 08:21 05/17/20 08:29 Klor Con 10 Meq PO 05/17/20 08:22 40 meq STAT ONE Administration Potassium Chloride Confirm 05/17/20 08:28 Klor Con 10 Meq Administered 05/17/20 08:29 Dose 40 meq PO .STK-MED ONE Lab/Rad Data: Laboratory Result Diagrams 05/17/20 05:55 05/17/20 05:55 Laboratory Results 05/17/20 05/17/20 05/17/20 Range/Units Unknown 10:32 10:06 WBC (4.0-10.5) K/mm3 RBC (4.1-5.4) M/mm3 Hgb (12.0-16.0) gm/dl Hct (35-47) % MCV (78-100) fl MCH (26-32) pg MCHC (32-36) g/dl RDW (11.5-14.0) % Plt Count (150-450) K/mm3 MPV (7.5-11.0) fl Gran % (36.0-66.0) % Eos # (Auto) (0-0.5) Absolute Lymphs (auto) (1.0-4.6) Absolute Monos (auto) (0.0-1.3) Lymphocytes % (24.0-44.0) % Monocytes % (0.0-12.0) % Eosinophils % (0.00-5.0) % Basophils % (0.0-0.4) % Absolute Granulocytes (1.4-6.9) Basophils # (0-0.4) pO2/FiO2 Ratio % VBG pH (7.32-7.42) VBG pCO2 at Pat Temp (42-55) mm/Hg VBG pO2 at Pat Temp (25-40) mm/Hg VBG HCO3 (22-28) meq/L VBG O2 Sat (Arlen) (95-100) VBG Base Excess (-2.0-2.0) VBG Hemoglobin VBG Carboxyhemoglobin (0.0-6.9) % T HGB POC Potassium (3.5-5.1) Sodium (137-145) mmol/L Potassium (3.5-5.1) mmol/L Chloride (98-107) mmol/L Carbon Dioxide (22-30) mmol/L Anion Gap (5-15) MEQ/L BUN (7-17) mg/dL Creatinine (0.52-1.04) mg/dL Estimated GFR ML/MIN Glucose (74-106) mg/dL POC Glucometer (74 to 106) mg/dL Lactic Acid 2.1 H (0.4-2.0) Calcium (8.4-10.2) mg/dL Magnesium (1.6-2.3) mg/dL Total Bilirubin (0.2-1.3) mg/dL AST (14-36) U/L ALT (0-35) U/L Alkaline Phosphatase (38-126) U/L Creatine Kinase (30-135) U/L Troponin I (0.000-0.034) ng/mL NT-Pro-B Natriuret Pep (0-900) pg/mL Serum Total Protein (6.3-8.2) g/dL Albumin (3.5-5.0) g/dL Thyroxine (T4) 6.04 (5.53-10.96) ug/dL TSH 3rd Generation (0.47-4.68) mIU/L Urine Color Urine Appearance Urine pH Ur Specific [place] Urine Protein POC Urine Protein Conf (Negative) Urine Ketones Urine Blood Urine Nitrite Urine Bilirubin Urine Urobilinogen Ur Leukocyte Esterase Urine Leukocytes (NEGATIVE) Urine WBC (Auto) (0-5) /HPF Urine RBC (Auto) (0-2) /HPF U Hyaline Cast (Auto) (0-2) /LPF U Epithel Cells (Auto) (FEW) /HPF Urine Bacteria (Auto) (NEGATIVE) /HPF Urine RBC (0-5) Issac/ul U Non-Squamous Epi Cells Urine Mucus (Auto) (NEGATIVE) /HPF Ur Culture Indicated? Urine Culture Reflexed Urine Glucose (NEGATIVE) mg/dL Salicylates (2-20) mg/dL Urine Opiates Level (NEGATIVE) Ur Methadone (NEGATIVE) Acetaminophen (10-30) ug/ml Urine Barbiturates (NEGATIVE) Ur Phencyclidine (PCP) (NEGATIVE) Urine Amphetamine (NEGATIVE) U Benzodiazepine Level (NEGATIVE) Urine Cocaine (NEGATIVE) Urine Marijuana (THC) (NEGATIVE) Ethyl Alcohol (0-10) mg/dL SARS-CoV-2 (PCR) NEGATIVE (NEGATIVE) 05/17/20 05/17/20 05/17/20 Range/Units 09:42 08:35 08:31 WBC (4.0-10.5) K/mm3 RBC (4.1-5.4) M/mm3 Hgb (12.0-16.0) gm/dl Hct (35-47) % MCV (78-100) fl MCH (26-32) pg MCHC (32-36) g/dl RDW (11.5-14.0) % Plt Count (150-450) K/mm3 MPV (7.5-11.0) fl Gran % (36.0-66.0) % Eos # (Auto) (0-0.5) Absolute Lymphs (auto) (1.0-4.6) Absolute Monos (auto) (0.0-1.3) Lymphocytes % (24.0-44.0) % Monocytes % (0.0-12.0) % Eosinophils % (0.00-5.0) % Basophils % (0.0-0.4) % Absolute Granulocytes (1.4-6.9) Basophils # (0-0.4) pO2/FiO2 Ratio % VBG pH (7.32-7.42) VBG pCO2 at Pat Temp (42-55) mm/Hg VBG pO2 at Pat Temp (25-40) mm/Hg VBG HCO3 (22-28) meq/L VBG O2 Sat (Arlen) (95-100) VBG Base Excess (-2.0-2.0) VBG Hemoglobin VBG Carboxyhemoglobin (0.0-6.9) % T HGB POC Potassium (3.5-5.1) Sodium (137-145) mmol/L Potassium (3.5-5.1) mmol/L Chloride (98-107) mmol/L Carbon Dioxide (22-30) mmol/L Anion Gap (5-15) MEQ/L BUN (7-17) mg/dL Creatinine (0.52-1.04) mg/dL Estimated GFR ML/MIN Glucose (74-106) mg/dL POC Glucometer 106 (74 to 106) mg/dL Lactic Acid (0.4-2.0) Calcium (8.4-10.2) mg/dL Magnesium (1.6-2.3) mg/dL Total Bilirubin (0.2-1.3) mg/dL AST (14-36) U/L ALT (0-35) U/L Alkaline Phosphatase (38-126) U/L Creatine Kinase 234 H (30-135) U/L Troponin I < 0.012 (0.000-0.034) ng/mL NT-Pro-B Natriuret Pep (0-900) pg/mL Serum Total Protein (6.3-8.2) g/dL Albumin (3.5-5.0) g/dL Thyroxine (T4) (5.53-10.96) ug/dL TSH 3rd Generation (0.47-4.68) mIU/L Urine Color Urine Appearance Urine pH Ur Specific [place] Urine Protein POC Urine Protein Conf (Negative) Urine Ketones Urine Blood Urine Nitrite Urine Bilirubin Urine Urobilinogen Ur Leukocyte Esterase Urine Leukocytes (NEGATIVE) Urine WBC (Auto) (0-5) /HPF Urine RBC (Auto) (0-2) /HPF U Hyaline Cast (Auto) (0-2) /LPF U Epithel Cells (Auto) (FEW) /HPF Urine Bacteria (Auto) (NEGATIVE) /HPF Urine RBC (0-5) Issac/ul U Non-Squamous Epi Cells Urine Mucus (Auto) (NEGATIVE) /HPF Ur Culture Indicated? Urine Culture Reflexed Urine Glucose (NEGATIVE) mg/dL Salicylates (2-20) mg/dL Urine Opiates Level (NEGATIVE) Ur Methadone (NEGATIVE) Acetaminophen (10-30) ug/ml Urine Barbiturates (NEGATIVE) Ur Phencyclidine (PCP) (NEGATIVE) Urine Amphetamine (NEGATIVE) U Benzodiazepine Level (NEGATIVE) Urine Cocaine (NEGATIVE) Urine Marijuana (THC) (NEGATIVE) Ethyl Alcohol (0-10) mg/dL SARS-CoV-2 (PCR) (NEGATIVE) 12/12/20 12/12/20 12/12/20 Range/Units 08:27 08:03 07:53 WBC (4.0-10.5) K/mm3 RBC (4.1-5.4) M/mm3 Hgb (12.0-16.0) gm/dl Hct (35-47) % MCV (78-100) fl MCH (26-32) pg MCHC (32-36) g/dl RDW (11.5-14.0) % Plt Count (150-450) K/mm3 MPV (7.5-11.0) fl Gran % (36.0-66.0) % Eos # (Auto) (0-0.5) Absolute Lymphs (auto) (1.0-4.6) Absolute Monos (auto) (0.0-1.3) Lymphocytes % (24.0-44.0) % Monocytes % (0.0-12.0) % Eosinophils % (0.00-5.0) % Basophils % (0.0-0.4) % Absolute Granulocytes (1.4-6.9) Basophils # (0-0.4) pO2/FiO2 Ratio 21.0 % VBG pH 7.29 L (7.32-7.42) VBG pCO2 at Pat Temp 37 L (42-55) mm/Hg VBG pO2 at Pat Temp 48 H (25-40) mm/Hg VBG HCO3 17.8 L (22-28) meq/L VBG O2 Sat (Arlen) 79.8 L (95-100) VBG Base Excess -8.1 L (-2.0-2.0) VBG Hemoglobin 13.9 VBG Carboxyhemoglobin 3.8 (0.0-6.9) % T HGB POC Potassium 4.1 (3.5-5.1) Sodium (137-145) mmol/L Potassium (3.5-5.1) mmol/L Chloride (98-107) mmol/L Carbon Dioxide (22-30) mmol/L Anion Gap (5-15) MEQ/L BUN (7-17) mg/dL Creatinine (0.52-1.04) mg/dL Estimated GFR ML/MIN Glucose (74-106) mg/dL POC Glucometer 94 (74 to 106) mg/dL Lactic Acid 4.9 H (0.4-2.0) Calcium (8.4-10.2) mg/dL Magnesium (1.6-2.3) mg/dL Total Bilirubin (0.2-1.3) mg/dL AST (14-36) U/L ALT (0-35) U/L Alkaline Phosphatase (38-126) U/L Creatine Kinase (30-135) U/L Troponin I (0.000-0.034) ng/mL NT-Pro-B Natriuret Pep (0-900) pg/mL Serum Total Protein (6.3-8.2) g/dL Albumin (3.5-5.0) g/dL Thyroxine (T4) (5.53-10.96) ug/dL TSH 3rd Generation (0.47-4.68) mIU/L Urine Color Urine Appearance Urine pH Ur Specific [place] Urine Protein POC Urine Protein Conf (Negative) Urine Ketones Urine Blood Urine Nitrite Urine Bilirubin Urine Urobilinogen Ur Leukocyte Esterase Urine Leukocytes (NEGATIVE) Urine WBC (Auto) (0-5) /HPF Urine RBC (Auto) (0-2) /HPF U Hyaline Cast (Auto) (0-2) /LPF U Epithel Cells (Auto) (FEW) /HPF Urine Bacteria (Auto) (NEGATIVE) /HPF Urine RBC (0-5) Issac/ul U Non-Squamous Epi Cells Urine Mucus (Auto) (NEGATIVE) /HPF Ur Culture Indicated? Urine Culture Reflexed Urine Glucose (NEGATIVE) mg/dL Salicylates (2-20) mg/dL Urine Opiates Level (NEGATIVE) Ur Methadone (NEGATIVE) Acetaminophen (10-30) ug/ml Urine Barbiturates (NEGATIVE) Ur Phencyclidine (PCP) (NEGATIVE) Urine Amphetamine (NEGATIVE) U Benzodiazepine Level (NEGATIVE) Urine Cocaine (NEGATIVE) Urine Marijuana (THC) (NEGATIVE) Ethyl Alcohol (0-10) mg/dL SARS-CoV-2 (PCR) (NEGATIVE) 05/17/20 05/17/20 05/17/20 Range/Units 06:45 06:40 06:08 WBC (4.0-10.5) K/mm3 RBC (4.1-5.4) M/mm3 Hgb (12.0-16.0) gm/dl Hct (35-47) % MCV (78-100) fl MCH (26-32) pg MCHC (32-36) g/dl RDW (11.5-14.0) % Plt Count (150-450) K/mm3 MPV (7.5-11.0) fl Gran % (36.0-66.0) % Eos # (Auto) (0-0.5) Absolute Lymphs (auto) (1.0-4.6) Absolute Monos (auto) (0.0-1.3) Lymphocytes % (24.0-44.0) % Monocytes % (0.0-12.0) % Eosinophils % (0.00-5.0) % Basophils % (0.0-0.4) % Absolute Granulocytes (1.4-6.9) Basophils # (0-0.4) pO2/FiO2 Ratio % VBG pH (7.32-7.42) VBG pCO2 at Pat Temp (42-55) mm/Hg VBG pO2 at Pat Temp (25-40) mm/Hg VBG HCO3 (22-28) meq/L VBG O2 Sat (Arlen) (95-100) VBG Base Excess (-2.0-2.0) VBG Hemoglobin VBG Carboxyhemoglobin (0.0-6.9) % T HGB POC Potassium (3.5-5.1) Sodium (137-145) mmol/L Potassium (3.5-5.1) mmol/L Chloride (98-107) mmol/L Carbon Dioxide (22-30) mmol/L Anion Gap (5-15) MEQ/L BUN (7-17) mg/dL Creatinine (0.52-1.04) mg/dL Estimated GFR ML/MIN Glucose (74-106) mg/dL POC Glucometer (74 to 106) mg/dL Lactic Acid (0.4-2.0) Calcium (8.4-10.2) mg/dL Magnesium 1.9 (1.6-2.3) mg/dL Total Bilirubin (0.2-1.3) mg/dL AST (14-36) U/L ALT (0-35) U/L Alkaline Phosphatase (38-126) U/L Creatine Kinase (30-135) U/L Troponin I < 0.012 (0.000-0.034) ng/mL NT-Pro-B Natriuret Pep 631 (0-900) pg/mL Serum Total Protein (6.3-8.2) g/dL Albumin (3.5-5.0) g/dL Thyroxine (T4) (5.53-10.96) ug/dL TSH 3rd Generation 0.534 (0.47-4.68) mIU/L Urine Color Urine Appearance Urine pH Ur Specific [place] Urine Protein POC Urine Protein Conf (Negative) Urine Ketones Urine Blood Urine Nitrite Urine Bilirubin Urine Urobilinogen Ur Leukocyte Esterase Urine Leukocytes (NEGATIVE) Urine WBC (Auto) (0-5) /HPF Urine RBC (Auto) (0-2) /HPF U Hyaline Cast (Auto) (0-2) /LPF U Epithel Cells (Auto) (FEW) /HPF Urine Bacteria (Auto) (NEGATIVE) /HPF Urine RBC (0-5) Issac/ul U Non-Squamous Epi Cells Urine Mucus (Auto) (NEGATIVE) /HPF Ur Culture Indicated? Urine Culture Reflexed Urine Glucose (NEGATIVE) mg/dL Salicylates (2-20) mg/dL Urine Opiates Level (NEGATIVE) Ur Methadone (NEGATIVE) Acetaminophen (10-30) ug/ml Urine Barbiturates (NEGATIVE) Ur Phencyclidine (PCP) (NEGATIVE) Urine Amphetamine (NEGATIVE) U Benzodiazepine Level (NEGATIVE) Urine Cocaine (NEGATIVE) Urine Marijuana (THC) (NEGATIVE) Ethyl Alcohol (0-10) mg/dL SARS-CoV-2 (PCR) (NEGATIVE) 05/17/20 05/17/20 05/17/20 Range/Units 05:55 05:55 05:40 WBC 17.8 H (4.0-10.5) K/mm3 RBC 4.55 (4.1-5.4) M/mm3 Hgb 13.7 (12.0-16.0) gm/dl Hct 42.3 (35-47) % MCV 93.0 (78-100) fl MCH 30.1 (26-32) pg MCHC 32.4 (32-36) g/dl RDW 13.4 (11.5-14.0) % Plt Count 311 (150-450) K/mm3 MPV 11.3 H (7.5-11.0) fl Gran % 71.8 H (36.0-66.0) % Eos # (Auto) 0.05 (0-0.5) Absolute Lymphs (auto) 3.41 (1.0-4.6) Absolute Monos (auto) 1.53 H (0.0-1.3) Lymphocytes % 19.1 L (24.0-44.0) % Monocytes % 8.6 (0.0-12.0) % Eosinophils % 0.3 (0.00-5.0) % Basophils % 0.2 (0.0-0.4) % Absolute Granulocytes 12.81 H (1.4-6.9) Basophils # 0.04 (0-0.4) pO2/FiO2 Ratio % VBG pH (7.32-7.42) VBG pCO2 at Pat Temp (42-55) mm/Hg VBG pO2 at Pat Temp (25-40) mm/Hg VBG HCO3 (22-28) meq/L VBG O2 Sat (Arlen) (95-100) VBG Base Excess (-2.0-2.0) VBG Hemoglobin VBG Carboxyhemoglobin (0.0-6.9) % T HGB POC Potassium (3.5-5.1) Sodium 135 L (137-145) mmol/L Potassium 3.3 L (3.5-5.1) mmol/L Chloride 104 (98-107) mmol/L Carbon Dioxide 17 L (22-30) mmol/L Anion Gap 17.3 H (5-15) MEQ/L BUN 22 H (7-17) mg/dL Creatinine 1.29 H (0.52-1.04) mg/dL Estimated GFR 46.1 ML/MIN Glucose 345 H (74-106) mg/dL POC Glucometer (74 to 106) mg/dL Lactic Acid (0.4-2.0) Calcium 10.6 H (8.4-10.2) mg/dL Magnesium (1.6-2.3) mg/dL Total Bilirubin 1.00 (0.2-1.3) mg/dL AST 34 (14-36) U/L ALT 30 (0-35) U/L Alkaline Phosphatase 119 (38-126) U/L Creatine Kinase (30-135) U/L Troponin I (0.000-0.034) ng/mL NT-Pro-B Natriuret Pep (0-900) pg/mL Serum Total Protein 8.5 H (6.3-8.2) g/dL Albumin 4.6 (3.5-5.0) g/dL Thyroxine (T4) (5.53-10.96) ug/dL TSH 3rd Generation (0.47-4.68) mIU/L Urine Color Urine Appearance Urine pH Ur Specific [place] Urine Protein POC Urine Protein Conf (Negative) Urine Ketones Urine Blood Urine Nitrite Urine Bilirubin Urine Urobilinogen Ur Leukocyte Esterase Urine Leukocytes (NEGATIVE) Urine WBC (Auto) (0-5) /HPF Urine RBC (Auto) (0-2) /HPF U Hyaline Cast (Auto) (0-2) /LPF U Epithel Cells (Auto) (FEW) /HPF Urine Bacteria (Auto) (NEGATIVE) /HPF Urine RBC (0-5) Issac/ul U Non-Squamous Epi Cells Urine Mucus (Auto) (NEGATIVE) /HPF Ur Culture Indicated? Urine Culture Reflexed Urine Glucose (NEGATIVE) mg/dL Salicylates < 1.0 L (2-20) mg/dL Urine Opiates Level NEGATIVE (NEGATIVE) Ur Methadone NEGATIVE (NEGATIVE) Acetaminophen < 10 L (10-30) ug/ml Urine Barbiturates NEGATIVE (NEGATIVE) Ur Phencyclidine (PCP) NEGATIVE (NEGATIVE) Urine Amphetamine NEGATIVE (NEGATIVE) U Benzodiazepine Level NEGATIVE (NEGATIVE) Urine Cocaine NEGATIVE (NEGATIVE) Urine Marijuana (THC) NEGATIVE (NEGATIVE) Ethyl Alcohol < 10 (0-10) mg/dL SARS-CoV-2 (PCR) (NEGATIVE) 05/17/20 Range/Units 05:40 WBC (4.0-10.5) K/mm3 RBC (4.1-5.4) M/mm3 Hgb (12.0-16.0) gm/dl Hct (35-47) % MCV (78-100) fl MCH (26-32) pg MCHC (32-36) g/dl RDW (11.5-14.0) % Plt Count (150-450) K/mm3 MPV (7.5-11.0) fl Gran % (36.0-66.0) % Eos # (Auto) (0-0.5) Absolute Lymphs (auto) (1.0-4.6) Absolute Monos (auto) (0.0-1.3) Lymphocytes % (24.0-44.0) % Monocytes % (0.0-12.0) % Eosinophils % (0.00-5.0) % Basophils % (0.0-0.4) % Absolute Granulocytes (1.4-6.9) Basophils # (0-0.4) pO2/FiO2 Ratio % VBG pH (7.32-7.42) VBG pCO2 at Pat Temp (42-55) mm/Hg VBG pO2 at Pat Temp (25-40) mm/Hg VBG HCO3 (22-28) meq/L VBG O2 Sat (Arlen) (95-100) VBG Base Excess (-2.0-2.0) VBG Hemoglobin VBG Carboxyhemoglobin (0.0-6.9) % T HGB POC Potassium (3.5-5.1) Sodium (137-145) mmol/L Potassium (3.5-5.1) mmol/L Chloride (98-107) mmol/L Carbon Dioxide (22-30) mmol/L Anion Gap (5-15) MEQ/L BUN (7-17) mg/dL Creatinine (0.52-1.04) mg/dL Estimated GFR ML/MIN Glucose (74-106) mg/dL POC Glucometer (74 to 106) mg/dL Lactic Acid (0.4-2.0) Calcium (8.4-10.2) mg/dL Magnesium (1.6-2.3) mg/dL Total Bilirubin (0.2-1.3) mg/dL AST (14-36) U/L ALT (0-35) U/L Alkaline Phosphatase (38-126) U/L Creatine Kinase (30-135) U/L Troponin I (0.000-0.034) ng/mL NT-Pro-B Natriuret Pep (0-900) pg/mL Serum Total Protein (6.3-8.2) g/dL Albumin (3.5-5.0) g/dL Thyroxine (T4) (5.53-10.96) ug/dL TSH 3rd Generation (0.47-4.68) mIU/L Urine Color Cancelled Urine Appearance Cancelled Urine pH Cancelled Ur Specific [place] Cancelled Urine Protein Cancelled POC Urine Protein Conf TRACE (Negative) Urine Ketones Cancelled Urine Blood Cancelled Urine Nitrite Cancelled Urine Bilirubin Cancelled Urine Urobilinogen Cancelled Ur Leukocyte Esterase Cancelled Urine Leukocytes NEGATIVE (NEGATIVE) Urine WBC (Auto) 3-5 (0-5) /HPF Urine RBC (Auto) NONE (0-2) /HPF U Hyaline Cast (Auto) 11-25 (0-2) /LPF U Epithel Cells (Auto) RARE (FEW) /HPF Urine Bacteria (Auto) RARE (NEGATIVE) /HPF Urine RBC TRACE-LYSED (0-5) Issac/ul U Non-Squamous Epi Cells Cancelled Urine Mucus (Auto) SLIGHT (NEGATIVE) /HPF Ur Culture Indicated? YES Urine Culture Reflexed Cancelled Urine Glucose 100 (NEGATIVE) mg/dL Salicylates (2-20) mg/dL Urine Opiates Level (NEGATIVE) Ur Methadone (NEGATIVE) Acetaminophen (10-30) ug/ml Urine Barbiturates (NEGATIVE) Ur Phencyclidine (PCP) (NEGATIVE) Urine Amphetamine (NEGATIVE) U Benzodiazepine Level (NEGATIVE) Urine Cocaine (NEGATIVE) Urine Marijuana (THC) (NEGATIVE) Ethyl Alcohol (0-10) mg/dL SARS-CoV-2 (PCR) (NEGATIVE) - Progress Progress: improved Counseled pt/family regarding: lab results, diagnosis <BENI RASHID - Last Filed: 05/17/20 07:04> <VICTORIA DEE - Last Filed: 05/17/20 11:53> - Progress Progress Note: 05/17/20 06:44 CAT scan of the head without contrast reveals no acute intracranial findings 05/17/20 07:05 I reviewed patient history condition and the results of those studies that have returned with Dr. Dee. He assumes care of the patient at shift change. (BENI RASHID) 05/17/20 11:01 Patient is checked out to me at shift change from Dr. Rashid with pending work- up. Patient presented with symptoms of anxiety depression with no suicidal or homicidal ideations. On my evaluation patient denied any suicidal/homicidal ideations and asking question differently multiple times. Patient work-up showed EKG sinus tach with bigeminy which was there on her Holter monitoring as well and her initial troponin are negative. Is a white count of 17 with a lactate of 4.9, given fluid per sepsis bolus protocol along with Levaquin. She has a infectious process going on in the right lower lobe as well on x-rays. Patient also has mild acute kidney injury with a creatinine of 1.29 with a gap of 17 and bicarb of 17 as well. Initial blood sugar was 345 which patient told me that she had a "bottle just before arrival. After giving a liter of fluid I rechecked glucose and it was 94. I do not think patient has DKA but it is more of a dehydration. Her pH is 7.29. She has a negative urine drug screen. Although patient is not suicidal or homicidal but she has a pressured speech and tangential, I did not appreciate any active hallucinations going on and she could not explain to me why she thinks she has hallucinations. But I agree with Dr. Rashid that she needs psych evaluation. At this point patient would be admitted and opts until her work-up is improved. I have d/w Dr. Gonzalez, patient is accepted for admission. 05/17/20 11:28 Patient later on decided not to stay, ripped away her IV and walked out of the ER without informing anyone. When RN tried to stop her she said "I do not think I needs to stay here". PD is informed and advised to bring patient back to the ER. (VICTORIA DEE) - Departure Departure Disposition: Transfer Critical Care Time: No <BENI RASHID - Last Filed: 05/17/20 07:04> - Departure Departure Disposition: Observation <VICTORIA DEE - Last Filed: 05/17/20 11:53> - Departure Clinical Impression: Anxiety, Hallucination, TAMARA (acute kidney injury), Metabolic acidosis Psychosis Qualifiers: Psychosis type: unspecified psychosis type Qualified Code(s): F29 - Unspecified psychosis not due to a substance or known physiological condition Pneumonia Qualifiers: Pneumonia type: due to unspecified organism Laterality: right Lung location: lower lobe of lung Qualified Code(s): J18.9 - Pneumonia, unspecified organism Condition: Stable Referrals: JUNE VIRAMONTES MD [Primary Care Provider] -
[2020-05-17] MEDS ORDERED: Ativan 2 MG/1 ML VIAL ONE ×2 (05:50→08:18)
[2020-05-17] MEDS ORDERED: Sodium Chloride 0.9% 1000 ML 1,000 ML ONE ×3 (05:50→09:36)
[2020-05-17] MEDS ORDERED: Zofran 4 MG/2 ML VIAL ONE (05:50)
[2020-05-17 05:59] LABS: Absolute Neutrophil Ct (ANC) 12.81 (1.4-6.9); BASOPHIL % 0.2 % (0.0-0.4); Basophil (Absolute #) 0.04 (0-0.4); Eosinophil % 0.3 % (0.00-5.0); Eosinophil (Absolute #) 0.05 (0-0.5); Hematocrit 42.3 % (35-47); Hemoglobin 13.7 gm/dl (12.0-16.0); Lymphocyte (Absolute #) 3.41 (1.0-4.6); Lymphocytes % 19.1 % (24.0-44.0); Mean Corpuscular Hemoglobin 30.1 pg (26-32); Mean Corpuscular Hgb Concent. 32.4 g/dl (32-36); Mean Platelet Volume 11.3 fl (7.5-11.0); Monocyte (Absolute #) 1.53 (0.0-1.3); Monocytes % 8.6 % (0.0-12.0); Neutrophil % 71.8 % (36.0-66.0); Platelet Count 311 K/mm3 (150-450); Red Blood Count 4.55 M/mm3 (4.1-5.4); Red Cell Distribution Width 13.4 % (11.5-14.0); White Blood Count 17.8 K/mm3 (4.0-10.5)
[2020-05-17 06:11] LABS: ALBUMIN 4.6 g/dL (3.5-5.0); ALKALINE PHOSPHATASE 119 U/L (38-126); BLOOD UREA NITROGEN 22 mg/dL (7-17); Calcium 10.6 mg/dL (8.4-10.2); Carbon Dioxide 17 mmol/L (22-30); Creatinine 1 1.29 mg/dL (0.52-1.04); EST GLOMERULAR FILTRATION RATE 46.1 ML/MIN; Glucose 345 mg/dL (74-106); SGOT/AST 34 U/L (14-36); Total Protein 8.5 g/dL (6.3-8.2)
[2020-05-17 06:19] LABS: Amphetamine,Urine NEGATIVE (NEGATIVE); Barbiturate,Urine NEGATIVE (NEGATIVE); Cocaine,Urine NEGATIVE (NEGATIVE); Methadone,Urine NEGATIVE (NEGATIVE); Opiate,Urine NEGATIVE (NEGATIVE); PCP,Urine NEGATIVE (NEGATIVE); THC,Urine NEGATIVE (NEGATIVE)
[2020-05-17 06:34] LABS: SALICYLATE < 1.0 mg/dL (2-20)
[2020-05-17 07:02] LABS: Benzodiazepine,Urine NEGATIVE (NEGATIVE)
[2020-05-17 07:08] LABS: MAGNESIUM 1.9 mg/dL (1.6-2.3)
[2020-05-17 07:14] LABS: ANION GAP 17.3 MEQ/L (5-15); CHLORIDE 104 mmol/L (98-107); Potassium 3.3 mmol/L (3.5-5.1); SGPT/ALT 30 U/L (0-35); SODIUM 135 mmol/L (137-145)
[2020-05-17 07:49] LABS: ACETAMINOPHEN < 10 ug/ml (10-30); ETHYL ALCOHOL < 10 mg/dL (0-10)
[2020-05-17 08:03] LABS: VBG BASE EXCESS -8.1 (-2.0-2.0); VBG CARBOXYHEMOGLOBIN 3.8 % T HGB (0.0-6.9); VBG HCO3- 17.8 meq/L (22-28); VBG HEMOGLOBIN 13.9; VBG O2 SATURATION 79.8 (95-100); VBG POTASSIUM 4.1 (3.5-5.1); VBG pH 7.29 (7.32-7.42)
[2020-05-17] MEDS ORDERED: Ativan 2 MG/1 ML VIAL IM ONE (08:03)
[2020-05-17] MEDS ORDERED: Magnesium 1 Gm / 100 Ml D5W*** 100 ML IV ONE ×2 (08:04→08:18)
[2020-05-17] MEDS ORDERED: HUMULIN R 100 UNIT in Sodium Chloride 0.9% 100 ML IVPB 100 ML IV PRN (08:20)
[2020-05-17] MEDS ORDERED: Klor Con 10 MEQ PO ONE ×2 (08:21→08:28)
[2020-05-17] MEDS ORDERED: POTASSIUM CHLORIDE 20 mEq IN WATER 100ML 100 ML IV ONE (08:28)
[2020-05-17] MEDS ORDERED: POTASSIUM CHLORIDE 20 mEq IN WATER 100ML 20 MEQ/100 ML BAG IV SCH (08:30)
[2020-05-17] MEDS ORDERED: Levofloxacin 500MG/100ML D5W 500 MG/100 ML BAG IV STA (08:52)
[2020-05-17 09:01] LABS: Appearance CLEAR (CLEAR); Bilirubin NEGATIVE (NEGATIVE); Glucose 100 mg/dL (NEGATIVE); Ketones NEGATIVE (NEGATIVE); Nitrite NEGATIVE (NEGATIVE); Protein,Urine Dip TRACE (Negative); RBC TRACE-LYSED Ery/ul (0-5); Specific Gravity 1.015 (1.005-1.025); Urobilinogen 0.2 mg/dL (0-1)
[2020-05-17 09:05] LABS: Bacteria RARE /HPF (NEGATIVE); Epithelial Cells RARE /HPF (FEW); Mucus SLIGHT /HPF (NEGATIVE)
[2020-05-17 09:34] VITALS: BP 148/70; O2SAT 99
[2020-05-17] MEDS ORDERED: Levofloxacin 500MG/100ML D5W 500 MG/100 ML BAG IV ONE (09:36)
[2020-05-17 10:22] VITALS: PULSE 120
[2020-05-17 13:22] LABS: Slide Review 1 YES
--- NOTE | 2020-05-17 17:57 | XRAY ---
Indication: Confusion 3 weeks. No known injury. Multiple contiguous axial images obtained through the head without contrast. Comparison: March 19, 2016. Normal appearing brain parenchyma, ventricles, and bony calvarium. Visualized paranasal sinuses and mastoid air cells are clear. Impression: Continued normal CT head without contrast exam. Comment: Preliminary interpretation was made by [facility]. No critical discrepancy.
--- NOTE | 2020-05-17 17:57 | XRAY ---
Indication: Pneumonia. Comparison: March 19, 2016. Portable chest less inflated and remains clear again with incidental calcified granulomas. Heart is not enlarged. Bony thorax intact. No new/acute findings.
== END 2020-05-17 11:30 | disposition left against medical advice (07) ==
LOC: ED 05:19
DX: F41.9 Anxiety disorder, unspecified (principal); N17.9 Acute kidney failure, unspecified; E87.2 Acidosis; F29 Unspecified psychosis not due to a substance or known physiological condition; J18.9 Pneumonia, unspecified organism; F32.9 Major depressive disorder, single episode, unspecified
CPT/HCPCS: 36000; 36415; 70450; 71045; 80053; 80307; 81015; 82550; 82805; 82947; 83605; 83735; 83880; 84436; 84443; 84484; 85025; 87086; 93005; 96360; 96361; 96365; 96367; 96372; 96374; 96375; 99285; G0480; U0003; J1956; J2060; J2405; J3475; J3480; A9270-GY

== ENCOUNTER 2020-05-18 17:02 | Emergency (ER) | payer OTHER ==
[2020-05-18] MEDS ORDERED: Sodium Chloride 0.9% 1000 ML 1,000 ML IV STA (17:36)
[2020-05-18] MEDS ORDERED: Ativan 2 MG/1 ML VIAL IV ONE (17:38)
[2020-05-18 17:46] LABS: Absolute Neutrophil Ct (ANC) 9.93 (1.4-6.9); BASOPHIL % 0.1 % (0.0-0.4); Basophil (Absolute #) 0.02 (0-0.4); Eosinophil % 0.5 % (0.00-5.0); Eosinophil (Absolute #) 0.07 (0-0.5); Hematocrit 36.4 % (35-47); Hemoglobin 11.8 gm/dl (12.0-16.0); Lymphocytes % 20.7 % (24.0-44.0); Mean Cell Volume 93.6 fl (78-100); Mean Corpuscular Hemoglobin 30.3 pg (26-32); Mean Corpuscular Hgb Concent. 32.4 g/dl (32-36); Mean Platelet Volume 11.5 fl (7.5-11.0); Monocyte (Absolute #) 1.88 (0.0-1.3); Monocytes % 12.5 % (0.0-12.0); Neutrophil % 66.2 % (36.0-66.0); Platelet Count 266 K/mm3 (150-450); Red Blood Count 3.89 M/mm3 (4.1-5.4); Red Cell Distribution Width 13.4 % (11.5-14.0)
[2020-05-18 17:51] LABS: ALBUMIN 4.1 g/dL (3.5-5.0); ALKALINE PHOSPHATASE 105 U/L (38-126); ANION GAP 13.8 MEQ/L (5-15); BLOOD UREA NITROGEN 16 mg/dL (7-17); CHLORIDE 110 mmol/L (98-107); Calcium 9.8 mg/dL (8.4-10.2); Carbon Dioxide 18 mmol/L (22-30); Creatinine 1 0.87 mg/dL (0.52-1.04); EST GLOMERULAR FILTRATION RATE > 60.0 ML/MIN; Glucose 143 mg/dL (74-106); Potassium 4.1 mmol/L (3.5-5.1); SGOT/AST 55 U/L (14-36); SGPT/ALT 29 U/L (0-35); SODIUM 137 mmol/L (137-145); Total Protein 7.8 g/dL (6.3-8.2)
[2020-05-18 17:52] LABS: ACETAMINOPHEN < 10 ug/ml (10-30); ETHYL ALCOHOL < 10 mg/dL (0-10); SALICYLATE < 1.0 mg/dL (2-20)
[2020-05-18] MEDS ORDERED: Sodium Chloride 0.9% 1000 ML 1,000 ML ONE (17:56)
[2020-05-18] MEDS ORDERED: Ativan 2 MG/1 ML VIAL ONE (17:56)
[2020-05-18 18:03] LABS: Appearance CLOUDY (CLEAR); Bacteria RARE /HPF (NEGATIVE); Epithelial Cells FEW /HPF (FEW); Mucus MANY /HPF (NEGATIVE)
[2020-05-18 18:04] LABS: Bilirubin MODERATE (NEGATIVE); Glucose NEGATIVE (NEGATIVE); Ketones SMALL-15 (NEGATIVE); Nitrite NEGATIVE (NEGATIVE); Protein,Urine Dip 30 (Negative); RBC TRACE-INTACT Ery/ul (0-5); Specific Gravity >=1.030 (1.005-1.025); Urobilinogen 2 mg/dL (0-1)
--- NOTE | 2020-05-18 18:04 | ERPHSYRPT ---
- History of Present Illness Source: patient, police Exam Limitations: clinical condition Patient Subjective Stated Complaint: Pt brought in by police. Was seen yesterday and left AMA. Pt presented hysterical at gas station today. Pt stating she is with Ebola baby. Keeps referring to 'he did this'. Pt oriented to person, place, and time. Pt talking very quickly and continously. States 'he' has been putting things in her veins. Triage Nursing Assessment: Pt skin pink, hot, clammy. Pupils 3mm. Pt has sores over arms and face. Pt cannnot sit still. Continuous movement and talking. Timing/Duration: day(s), gradual onset, worse Severity of Symptoms-Max: moderate Severity of Symptoms-Current: moderate Suicidal thoughts: other Associated Symptoms: agitated, anxiety, hallucinating, impaired concentration, paranoid, No suicidal ideation Previous symptoms: same symptoms as today Hx Tetanus, Diphtheria Vaccination/Date Given: Yes Hx Influenza Vaccination/Date Given: Yes Hx Pneumococcal Vaccination/Date Given: Yes <VICTORIA DEE - Last Filed: 05/18/20 18:47> <VIRY FISH - Last Filed: 05/18/20 21:12> - History of Present Illness Time Seen by Provider: 05/18/20 17:20 Physician History: 54 years old female with history of anxiety depression is brought in the ER by PD after she showed up in a gas station, was acting hysterical saying things which do not make much sense. Patient reports someone is putting things in her vein and she is with ebola baby. She constantly keeps shaking her legs and cannot concentrate on one things and keeps jumping from 1 topic to another with a pressured speech. Denies using alcohol or drugs. Stop taking medications almost 4 weeks ago. Patient was seen in the ER yesterday, eloped and PD was informed. Patient is not in any distress. (VICTORIA DEE) Allergies/Adverse Reactions: Penicillins Allergy (Unknown, Verified 05/18/20 18:39) morphine Allergy (Verified 05/18/20 18:39) Home Medications: Alprazolam 1 mg [Xanax 1 mg] 1 mg PO Q4-6HPRN PRN 05/31/15 [History] Duloxetine HCl [Cymbalta] 1 mg PO DAILY 03/19/16 [History] Travel Risk - International Travel Have you traveled outside of the country in past 3 weeks: No - Coronavirus Screening Are you exhibiting any of the following symptoms?: No Close contact with a COVID-19 positive Pt in past 14-21 Days: No <VICTORIA DEE - Last Filed: 05/18/20 18:47> - Past Medical History Pertinent Past Medical History: Yes Neurological History: Stroke ENT History: No Pertinent History Cardiac History: Myocardial Infarction (SD) Respiratory History: No Pertinent History Endocrine Medical History: No Pertinent History Musculoskeletal History: No Pertinent History GI Medical History: No Pertinent History History: No Pertinent History Psycho-Social History: Anxiety, Depression Female Reproductive Disorders: No Pertinent History Other Medical History: possible SD, pt unsure - 2015 - Past Surgical History Past Surgical History: Yes Neuro Surgical History: No Pertinent History Cardiac: No Pertinent History Respiratory: No Pertinent History Gastrointestinal: No Pertinent History Genitourinary: No Pertinent History Musculoskeletal: No Pertinent History Female Surgical History: Section Other Surgical History: ovarian cyst removed at age 20 - Social History Smoking Status: Unknown if ever smoked Exposure to second hand smoke: Yes Drug Use: none Patient Lives Alone: Yes Significant Family History: no pertinent family hx <VICTORIA DEE - Last Filed: 05/18/20 18:47> - Review of Systems Constitutional: Fatigue Eyes: No Symptoms Ears, Nose, & Throat: No Symptoms Respiratory: No Symptoms Cardiac: No Symptoms Abdominal/Gastrointestinal: No Symptoms Genitourinary Symptoms: No Symptoms Musculoskeletal: No Symptoms Skin: No Symptoms Neurological: Tremors Psychological: Anxiety, Depression, Hallucinations, Mood Changes Endocrine: No Symptoms Hematologic/Lymphatic: No Symptoms Immunological/Allergic: No Symptoms <VICTORIA DEE - Last Filed: 05/18/20 18:47> - Physical Exam General Appearance: no apparent distress, alert, anxiety Eyes, Ears, Nose, Throat Exam: normal ENT inspection, TMs normal, pharynx normal Neck Exam: normal inspection, non-tender, supple, full range of motion Respiratory Exam: normal breath sounds, lungs clear, No chest tenderness Cardiovascular Exam: regular rate/rhythm, normal heart sounds Gastrointestinal/Abdominal Exam: soft, normal bowel sounds Extremities Exam: normal inspection, normal range of motion, evidence of injury Current Suicidality: denies suicide plan Neurological Exam: alert, hip hop artist II-XII nml as tested, oriented x 3, No normal mood/affect Appearance: no memory impairment, impaired insight Behavior/Eye Contact/Speech: alert & cooperative, good eye contact, increased rate of speech, compulsive Thoughts/Hallucinations: flight of ideas, paranoid Skin Exam: normal color SpO2 Interpretation: normal SpO2: 98 O2 Delivery: Room Air <LEILAVICTORIA - Last Filed: 05/18/20 18:47> - Nursing Vital Signs Nursing Vital Signs: Initial Vital Signs Temperature 97.5 F 05/18/20 17:03 Pulse Rate 100 H 05/18/20 17:03 Respiratory Rate 32 H 05/18/20 17:03 Blood Pressure 146/73 05/18/20 17:03 O2 Sat by Pulse Oximetry 98 05/18/20 17:03 Pain Scale Pain Intensity 0 Ordered Tests: Active Orders 24 hr Category Date Time Status Yarding Engineer STAT Care 05/18/20 18:44 Active IV Insertion STAT Care 05/18/20 17:36 Active ACETAMINOPHEN Stat Lab 05/18/20 17:41 Completed CBC W DIFF Stat Lab 05/18/20 17:41 Completed CMP Stat Lab 05/18/20 17:41 Completed CULTURE,URINE Stat Lab 05/18/20 17:52 Received ETHYL ALCOHOL Stat Lab 05/18/20 17:41 Completed SALICYLATE Stat Lab 05/18/20 17:41 Completed Urine Triage Profile Stat Lab 05/18/20 17:52 Completed Medication Summary Discontinued Medications Generic Name Dose Route Start Last Admin Trade Name Poolq PRN Reason Stop Dose Admin Sodium Chloride 1,000 mls @ 999 mls/hr 05/18/20 17:36 05/18/20 19:11 Sodium Chloride 0.9% 1000 Ml IV 05/18/20 18:36 Infused .Q1H1M STA Infusion Sodium Chloride Confirm 05/18/20 17:56 Sodium Chloride 0.9% 1000 Ml Administered 05/18/20 17:57 Dose 1,000 mls @ ud .ROUTE .STK-MED ONE Ceftriaxone Sodium/Dextrose 1 g in 50 mls @ 100 mls/hr 05/18/20 18:25 05/06 08/23 19:12 Rocephin 1 Gm-D5w 50 Ml Bag IV 05/18/20 18:54 Infused STAT STA Infusion Ceftriaxone Sodium/Dextrose Confirm 05/18/20 18:28 Rocephin 1 Gm-D5w 50 Ml Bag Administered 05/18/20 18:29 Dose 1 g in 50 mls @ ud IV .STK-MED ONE Lorazepam 1 mg 05/18/20 17:38 05/18/20 18:02 Ativan 2 Mg/1 Ml Vial IV 05/18/20 17:39 1 mg STAT ONE Administration Lorazepam Confirm 05/18/20 17:56 Ativan 2 Mg/1 Ml Vial Administered 05/18/20 17:57 Dose 2 mg .ROUTE .STK-MED ONE Olanzapine 10 mg 05/18/20 19:26 05/18/20 19:38 Zyprexa 5mg Tablet PO 05/18/20 19:27 Not Given ONCE STA Olanzapine 10 mg 05/18/20 19:31 05/18/20 19:33 Zyprexa Zydis 5 Mg PO 05/18/20 19:32 10 mg STAT ONE Administration Olanzapine Confirm 05/18/20 19:31 Zyprexa Zydis 5 Mg Administered 05/18/20 19:32 Dose 10 mg PO .STK-MED ONE Lab/Rad Data: Laboratory Result Diagrams 05/18/20 17:41 05/18/20 17:41 Laboratory Results 05/18/20 05/18/20 05/18/20 Range/Units 17:52 17:52 17:41 WBC (4.0-10.5) K/mm3 RBC (4.1-5.4) M/mm3 Hgb (12.0-16.0) gm/dl Hct (35-47) % MCV (78-100) fl MCH (26-32) pg MCHC (32-36) g/dl RDW (11.5-14.0) % Plt Count (150-450) K/mm3 MPV (7.5-11.0) fl Gran % (36.0-66.0) % Eos # (Auto) (0-0.5) Absolute Lymphs (auto) (1.0-4.6) Absolute Monos (auto) (0.0-1.3) Lymphocytes % (24.0-44.0) % Monocytes % (0.0-12.0) % Eosinophils % (0.00-5.0) % Basophils % (0.0-0.4) % Absolute Granulocytes (1.4-6.9) Basophils # (0-0.4) Sodium 137 (137-145) mmol/L Potassium 4.1 D (3.5-5.1) mmol/L Chloride 110 H (98-107) mmol/L Carbon Dioxide 18 L (22-30) mmol/L Anion Gap 13.8 (5-15) MEQ/L BUN 16 (7-17) mg/dL Creatinine 0.87 (0.52-1.04) mg/dL Estimated GFR > 60.0 ML/MIN Glucose 143 H (74-106) mg/dL Calcium 9.8 (8.4-10.2) mg/dL Total Bilirubin 1.10 (0.2-1.3) mg/dL AST 55 H (14-36) U/L ALT 29 (0-35) U/L Alkaline Phosphatase 105 (38-126) U/L Serum Total Protein 7.8 (6.3-8.2) g/dL Albumin 4.1 (3.5-5.0) g/dL Urine Color DARK YELLOW (YELLOW) Urine Appearance CLOUDY (CLEAR) Urine pH 5.5 (5-6) Ur Specific [place] >=1.030 (1.005-1.025) POC Urine Protein Conf 30 (Negative) Urine Ketones SMALL-15 (NEGATIVE) Urine Nitrite NEGATIVE (NEGATIVE) Urine Bilirubin MODERATE (NEGATIVE) Urine Urobilinogen 2 (0-1) mg/dL Urine Leukocytes NEGATIVE (NEGATIVE) Urine WBC (Auto) 11-15 (0-5) /HPF Urine RBC (Auto) 3-5 (0-2) /HPF U Hyaline Cast (Auto) 11-25 (0-2) /LPF U Epithel Cells (Auto) FEW (FEW) /HPF Urine Bacteria (Auto) RARE (NEGATIVE) /HPF Urine RBC TRACE-INTACT (0-5) Issac/ul Calcium Oxalate Crystal 11-25 (NEGATIVE) /HPF Urine Mucus (Auto) MANY (NEGATIVE) /HPF Ur Culture Indicated? YES Urine Glucose NEGATIVE (NEGATIVE) mg/dL Salicylates < 1.0 L (2-20) mg/dL Urine Opiates Level NEGATIVE (NEGATIVE) Ur Methadone NEGATIVE (NEGATIVE) Acetaminophen < 10 L (10-30) ug/ml Urine Barbiturates NEGATIVE (NEGATIVE) Ur Phencyclidine (PCP) NEGATIVE (NEGATIVE) Urine Amphetamine NEGATIVE (NEGATIVE) U Benzodiazepine Level NEGATIVE (NEGATIVE) Urine Cocaine NEGATIVE (NEGATIVE) Urine Marijuana (THC) NEGATIVE (NEGATIVE) Ethyl Alcohol < 10 (0-10) mg/dL 05/18/20 Range/Units 17:41 WBC 15.0 H (4.0-10.5) K/mm3 RBC 3.89 L (4.1-5.4) M/mm3 Hgb 11.8 L (12.0-16.0) gm/dl Hct 36.4 (35-47) % MCV 93.6 (78-100) fl MCH 30.3 (26-32) pg MCHC 32.4 (32-36) g/dl RDW 13.4 (11.5-14.0) % Plt Count 266 (150-450) K/mm3 MPV 11.5 H (7.5-11.0) fl Gran % 66.2 H (36.0-66.0) % Eos # (Auto) 0.07 (0-0.5) Absolute Lymphs (auto) 3.10 (1.0-4.6) Absolute Monos (auto) 1.88 H (0.0-1.3) Lymphocytes % 20.7 L (24.0-44.0) % Monocytes % 12.5 H (0.0-12.0) % Eosinophils % 0.5 (0.00-5.0) % Basophils % 0.1 (0.0-0.4) % Absolute Granulocytes 9.93 H (1.4-6.9) Basophils # 0.02 (0-0.4) Sodium (137-145) mmol/L Potassium (3.5-5.1) mmol/L Chloride (98-107) mmol/L Carbon Dioxide (22-30) mmol/L Anion Gap (5-15) MEQ/L BUN (7-17) mg/dL Creatinine (0.52-1.04) mg/dL Estimated GFR ML/MIN Glucose (74-106) mg/dL Calcium (8.4-10.2) mg/dL Total Bilirubin (0.2-1.3) mg/dL AST (14-36) U/L ALT (0-35) U/L Alkaline Phosphatase (38-126) U/L Serum Total Protein (6.3-8.2) g/dL Albumin (3.5-5.0) g/dL Urine Color (YELLOW) Urine Appearance (CLEAR) Urine pH (5-6) Ur Specific [place] (1.005-1.025) POC Urine Protein Conf (Negative) Urine Ketones (NEGATIVE) Urine Nitrite (NEGATIVE) Urine Bilirubin (NEGATIVE) Urine Urobilinogen (0-1) mg/dL Urine Leukocytes (NEGATIVE) Urine WBC (Auto) (0-5) /HPF Urine RBC (Auto) (0-2) /HPF U Hyaline Cast (Auto) (0-2) /LPF U Epithel Cells (Auto) (FEW) /HPF Urine Bacteria (Auto) (NEGATIVE) /HPF Urine RBC (0-5) Issac/ul Calcium Oxalate Crystal (NEGATIVE) /HPF Urine Mucus (Auto) (NEGATIVE) /HPF Ur Culture Indicated? Urine Glucose (NEGATIVE) mg/dL Salicylates (2-20) mg/dL Urine Opiates Level (NEGATIVE) Ur Methadone (NEGATIVE) Acetaminophen (10-30) ug/ml Urine Barbiturates (NEGATIVE) Ur Phencyclidine (PCP) (NEGATIVE) Urine Amphetamine (NEGATIVE) U Benzodiazepine Level (NEGATIVE) Urine Cocaine (NEGATIVE) Urine Marijuana (THC) (NEGATIVE) Ethyl Alcohol (0-10) mg/dL - Progress Progress: unchanged Counseled pt/family regarding: lab results, diagnosis <VICTORIA DEE - Last Filed: 05/18/20 18:47> <VIRY FISH - Last Filed: 05/18/20 21:12> - Progress Progress Note: Patient is very anxious on presentation. She is given Ativan, reevaluation her anxiety is better. She is medically cleared although her white count is 15 but it is improving from yesterday. She also has improvement in her renal functions from yesterday. X-ray chest was negative yesterday per radiology. Do not think needs another imaging. Dose of Rocephin IV in here. This could be the reason for her elevated white count. At this point behavioral health evaluation would be obtained. ED hold is placed by me as patient eloped yesterday, will make sure patient go to behavioral health facility this time which seems to be important at this point for her treatment of psychosis. BH evaluation is pending and care is transferred to Dr. Fish at shift change for final disposition. 05/18/20 18:26 (VICTORIA DEE) 05/18/20 19:10 Patient care transitioned to vt by Dr. Huitron awaiting psychiatric placement. 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 She states this occurred last week. When asked who she stated a "sap technical developer" injected her last week, but can't tell me how or where she was injected. The patient is obviously suffering from psychosis and needs psychiatric placement. 05/18/20 19:27 The patient started to scream and is agitated. 10 mg of olanzapine has been ordered. 05/18/20 21:11 [facility] called back and accepted the patient for transfer. Dr. Christ Breen is the accepting physician. (VIRY FISH) - Departure Critical Care Time: No <VICTORIA DEE - Last Filed: 05/18/20 18:47> - Departure Departure Disposition: Transfer Critical Care Time: No <VIRY FISH - Last Filed: 05/18/20 21:12> - Departure Clinical Impression: Anxiety Psychosis Qualifiers: Psychosis type: unspecified psychosis type Qualified Code(s): F29 - Unspecified psychosis not due to a substance or known physiological condition UTI (urinary tract infection) Qualifiers: Urinary tract infection type: site unspecified Hematuria presence: with hematuria Qualified Code(s): N39.0 - Urinary tract infection, site not specified Condition: Stable
[2020-05-18 18:14] LABS: Amphetamine,Urine NEGATIVE (NEGATIVE); Barbiturate,Urine NEGATIVE (NEGATIVE); Benzodiazepine,Urine NEGATIVE (NEGATIVE); Cocaine,Urine NEGATIVE (NEGATIVE); Methadone,Urine NEGATIVE (NEGATIVE); Opiate,Urine NEGATIVE (NEGATIVE); PCP,Urine NEGATIVE (NEGATIVE); THC,Urine NEGATIVE (NEGATIVE)
[2020-05-18] MEDS ORDERED: ROCEPHIN 1 Gm-D5w 50 ml Bag** 1 G/50 ML IVPB IV STA (18:25)
[2020-05-18] MEDS ORDERED: ROCEPHIN 1 Gm-D5w 50 ml Bag** 1 G/50 ML IVPB IV ONE (18:28)
[2020-05-18] MEDS ORDERED: zyPREXA 5MG TABLET PO STA (19:26)
[2020-05-18] MEDS ORDERED: Zyprexa Zydis 5 MG PO ONE ×2 (19:31)
[2020-05-18] MEDS ORDERED: BENADRYL 50 MG/ML IV ONE (21:16)
[2020-05-18] MEDS ORDERED: BENADRYL 50 MG/ML ONE (21:16)
[2020-05-18] MEDS ORDERED: Haldol 5 MG IV ONE (21:16)
[2020-05-18] MEDS ORDERED: Haldol 5 MG ONE (21:16)
[2020-05-18 21:26] VITALS: BP 127/80; PULSE 104; O2SAT 98
== END 2020-05-18 22:24 ==
LOC: ED 17:02
DX: F41.9 Anxiety disorder, unspecified (principal); F29 Unspecified psychosis not due to a substance or known physiological condition; N39.0 Urinary tract infection, site not specified
CPT/HCPCS: 36000; 36415; 80053; 80307; 81015; 85025; 87086; 93041; 96360; 96374; 96375; 99285; G0480; J0696; J1200; J1630; J2060; A9270-GY

== ENCOUNTER 2020-07-31 14:20 | Emergency (ER) | payer OTHER ==
[2020-07-31 14:34] VITALS: O2SAT 98
[2020-07-31] MEDS ORDERED: Sodium Chloride 0.9% 1000 ML 1,000 ML IV SCH (15:00)
[2020-07-31] MEDS ORDERED: Zofran 4 MG/2 ML VIAL IV ONE (15:05)
[2020-07-31] MEDS ORDERED: Hydromorphone 1 mg/ml Injection IV ONE ×2 (15:05→17:10)
[2020-07-31] MEDS ORDERED: Zofran 4 MG/2 ML VIAL ONE (15:05)
[2020-07-31] MEDS ORDERED: Sodium Chloride 0.9% 1000 ML 1,000 ML ONE (15:06)
[2020-07-31] MEDS ORDERED: Hydromorphone 1 mg/ml Injection ONE ×2 (15:06→17:13)
[2020-07-31 16:03] LABS: Absolute Neutrophil Ct (ANC) 6.49 (1.4-6.9); BASOPHIL % 0.3 % (0.0-0.4); Basophil (Absolute #) 0.04 (0-0.4); Eosinophil % 4.8 % (0.00-5.0); Eosinophil (Absolute #) 0.56 (0-0.5); Hematocrit 35.8 % (35-47); Hemoglobin 11.2 gm/dl (12.0-16.0); Lymphocyte (Absolute #) 3.61 (1.0-4.6); Lymphocytes % 30.7 % (24.0-44.0); Mean Corpuscular Hgb Concent. 31.3 g/dl (32-36); Mean Platelet Volume 10.1 fl (7.5-11.0); Monocyte (Absolute #) 1.07 (0.0-1.3); Monocytes % 9.1 % (0.0-12.0); Neutrophil % 55.1 % (36.0-66.0); Platelet Count 307 K/mm3 (150-450); Red Blood Count 3.73 M/mm3 (4.1-5.4); Red Cell Distribution Width 13.3 % (11.5-14.0); White Blood Count 11.8 K/mm3 (4.0-10.5)
[2020-07-31 16:14] LABS: ALBUMIN 3.8 g/dL (3.5-5.0); ALKALINE PHOSPHATASE 102 U/L (38-126); ANION GAP 10.1 MEQ/L (5-15); BLOOD UREA NITROGEN 12 mg/dL (7-17); CHLORIDE 104 mmol/L (98-107); Calcium 9.3 mg/dL (8.4-10.2); Carbon Dioxide 29 mmol/L (22-30); Creatinine 1 0.87 mg/dL (0.52-1.04); EST GLOMERULAR FILTRATION RATE > 60.0 ML/MIN; Glucose 106 mg/dL (74-106); LIPASE 1155 U/L (23-300); SGOT/AST 50 U/L (14-36); SGPT/ALT 34 U/L (0-35); SODIUM 139 mmol/L (137-145); Total Protein 7.2 g/dL (6.3-8.2)
--- NOTE | 2020-07-31 16:23 | ERPHSYRPT ---
- History of Present Illness Time Seen by Provider: 07/31/20 14:40 Historian: patient Exam Limitations: no limitations Patient Subjective Stated Complaint: PT states "this has been going on and off for the past 5 years but this is the worst it has ever been. I hurt right under my right ribs." Triage Nursing Assessment: Pt presented alert and oriented X 3, skin pwd pt ambulates with an upright steady gait, able to speak in clear full sentences. Pt has lidocain patch on her right ribs. Physician History: Patient is a 54-year-old female presents to our emergency department with complaints of epigastric and right upper quadrant pain. Patient states she has been experiencing right upper quadrant pain intermittently for approximately 5 years. However pain is gotten significantly worse over the past few days. Pain described as an ache that is now constant. Pain worse after eating meals. Pain improved with rest. No trauma. No fever. Patient is mildly nauseous. No vomiting. Symptoms are moderate in intensity. No specific worsening improving factors. Patient voices no other complaints or concerns at this time. Timing/Duration: day(s) Activities at Onset: none Quality: aching Abdominal Pain Onset Location: RUQ, epigastric Pain Radiation: no radiation Severity of Pain-Max: moderate Severity of Pain-Current: mild Modifying Factors: Improves With: eating Associated Symptoms: denies symptoms, other (Patient stated her stools were loose today.) Previous symptoms: no prior history Allergies/Adverse Reactions: Penicillins Allergy (Unknown, Verified 07/10/20 16:25) morphine Allergy (Verified 07/10/20 16:25) Home Medications: Alprazolam 1 mg [Xanax 1 mg] 1 mg PO Q4-6HPRN PRN 05/31/15 [History] Duloxetine HCl [Cymbalta] 1 mg PO DAILY 03/19/16 [History] Olanzapine 5 mg [zyPREXA 5MG TABLET] 5 mg PO HS 07/31/20 [History] Omeprazole 10 mg PO DAILY 07/31/20 [History] Hx Tetanus, Diphtheria Vaccination/Date Given: Yes Hx Influenza Vaccination/Date Given: No Hx Pneumococcal Vaccination/Date Given: No Immunizations Up to Date: Yes Travel Risk - International Travel Have you traveled outside of the country in past 3 weeks: No - Coronavirus Screening Are you exhibiting any of the following symptoms?: No Close contact with a COVID-19 positive Pt in past 14-21 Days: No - Review of Systems Constitutional: No Symptoms, No Fever, No Chills Eyes: No Symptoms Ears, Nose, & Throat: No Symptoms Respiratory: No Symptoms, No Cough, No Dyspnea Cardiac: No Symptoms, No Chest Pain, No Edema, No Syncope Abdominal/Gastrointestinal: No Symptoms, No Abdominal Pain, No Nausea, No Vomiting, No Diarrhea Genitourinary Symptoms: No Symptoms, No Dysuria Musculoskeletal: No Symptoms, No Back Pain, No Neck Pain Skin: No Symptoms, No Rash Neurological: No Symptoms, No Dizziness, No Focal Weakness, No Sensory Changes Psychological: No Symptoms Endocrine: No Symptoms Hematologic/Lymphatic: No Symptoms Immunological/Allergic: No Symptoms All Other Systems: Reviewed and Negative - Past Medical History Pertinent Past Medical History: Yes Neurological History: Stroke ENT History: No Pertinent History Cardiac History: Myocardial Infarction (VT), Other Respiratory History: No Pertinent History Endocrine Medical History: No Pertinent History Musculoskeletal History: No Pertinent History GI Medical History: No Pertinent History History: No Pertinent History Psycho-Social History: Anxiety, Depression Female Reproductive Disorders: No Pertinent History Other Medical History: possible VT, pt unsure - 2015, regurgitating valve - Past Surgical History Past Surgical History: Yes Neuro Surgical History: No Pertinent History Cardiac: No Pertinent History Respiratory: No Pertinent History Gastrointestinal: No Pertinent History Genitourinary: No Pertinent History Musculoskeletal: No Pertinent History Female Surgical History: Section Other Surgical History: ovarian cyst removed at age 20 - Social History Smoking Status: Never smoker Exposure to second hand smoke: Yes Drug Use: none Patient Lives Alone: Yes Significant Family History: no pertinent family hx - Female History Hx Last Menstrual Period: ablasion Hx Now: No - Nursing Vital Signs Nursing Vital Signs: Initial Vital Signs Temperature 97.8 F 07/31/20 14:28 Pulse Rate 82 07/31/20 14:28 Respiratory Rate 22 07/31/20 14:28 Blood Pressure 151/95 07/31/20 14:28 O2 Sat by Pulse Oximetry 98 07/31/20 14:28 Pain Scale Pain Intensity 6 - Physical Exam General Appearance: no apparent distress, alert Eye Exam: PERRL/EOMI, eyes nml inspection Ears, Nose, Throat Exam: normal ENT inspection, pharynx normal, moist mucous membranes Neck Exam: normal inspection, non-tender, supple, full range of motion Respiratory Exam: normal breath sounds, lungs clear, No respiratory distress Cardiovascular Exam: regular rate/rhythm, normal heart sounds Gastrointestinal/Abdomen Exam: soft, other (Epigastric tenderness and right upper quadrant tenderness.), No tenderness, No mass Back Exam: normal inspection, normal range of motion, No CVA tenderness, No vertebral tenderness Extremity Exam: normal inspection, normal range of motion, pelvis stable Neurologic Exam: alert, oriented x 3, cooperative, normal mood/affect, nml cerebellar function, sensation nml, No motor deficits Skin Exam: normal color, warm, dry Lymphatic Exam: No adenopathy SpO2 Interpretation: normal SpO2: 98 O2 Delivery: Room Air - Course Nursing assessment & vital signs reviewed: Yes EKG Interpreted by Me: RATE ([id number]), Sinus Rhythm, NORMAL AXIS, prolonged QT interval - CT Exams Abdomen/Pelvis CT Interpretation: Tele-radiologist Report (No megaly, fat-containing umbilical hernia, constipation,) Ordered Tests: Active Orders 24 hr Category Date Time Status AMA [Release AMA] OM.NOW Care 07/31/20 17:51 Ordered EKG-ER Only STAT Care 07/31/20 14:47 Active IV Insertion STAT Care 07/31/20 14:47 Active ABDOMEN AND PELVIS W CONTRAST [CT] Stat Exams 07/31/20 14:47 Completed CBC W DIFF Stat Lab 07/31/20 15:35 Completed CMP Stat Lab 07/31/20 15:35 Completed LIPASE Stat Lab 07/31/20 15:35 Completed TROPONIN Q3H Lab 07/31/20 15:35 Completed TROPONIN Q3H Lab 07/31/20 18:00 Ordered TROPONIN Q3H Lab 07/31/20 21:00 Ordered TROPONIN Q3H Lab 08/01/20 00:00 Ordered TROPONIN Q3H Lab 08/01/20 03:00 Ordered UA W/RFX UR CULTURE Stat Lab 07/31/20 14:47 Ordered Medication Summary Generic Name Dose Route Start Last Admin Trade Name Freq PRN Reason Stop Dose Admin Sodium Chloride 1,000 mls @ 100 mls/hr 07/31/20 15:00 07/31/20 15:07 Sodium Chloride 0.9% 1000 Ml IV 08/30/20 14:59 100 mls/hr .Q10H MIKO Administration Discontinued Medications Generic Name Dose Route Start Last Admin Trade Name Freq PRN Reason Stop Dose Admin Hydromorphone HCl 0.5 mg 07/31/20 15:05 07/31/20 15:07 Hydromorphone 1 Mg/Ml Injection IV 07/31/20 15:06 0.5 mg STAT ONE Administration Hydromorphone HCl Confirm 07/31/20 15:06 Hydromorphone 1 Mg/Ml Injection Administered 07/31/20 15:07 Dose 1 mg .ROUTE .STK-MED ONE Hydromorphone HCl 0.5 mg 07/31/20 17:10 07/31/20 17:15 Hydromorphone 1 Mg/Ml Injection IV 07/31/20 17:11 0.5 mg STAT ONE Administration Hydromorphone HCl Confirm 07/31/20 17:13 Hydromorphone 1 Mg/Ml Injection Administered 07/31/20 17:14 Dose 1 mg .ROUTE .STK-MED ONE Ondansetron HCl 4 mg 07/31/20 15:05 07/31/20 15:07 Zofran 4 Mg/2 Ml Vial IV 07/31/20 15:06 4 mg STAT ONE Administration Ondansetron HCl Confirm 07/31/20 15:05 Zofran 4 Mg/2 Ml Vial Administered 07/31/20 15:06 Dose 4 mg .ROUTE .STK-MED ONE Lab/Rad Data: Laboratory Result Diagrams 07/31/20 15:35 07/31/20 15:35 Laboratory Results 07/31/20 07/31/20 07/31/20 Range/Units 15:35 15:35 15:35 WBC 11.8 H (4.0-10.5) K/mm3 RBC 3.73 L (4.1-5.4) M/mm3 Hgb 11.2 L (12.0-16.0) gm/dl Hct 35.8 (35-47) % MCV 96.0 (78-100) fl MCH 30.0 (26-32) pg MCHC 31.3 L (32-36) g/dl RDW 13.3 (11.5-14.0) % Plt Count 307 (150-450) K/mm3 MPV 10.1 (7.5-11.0) fl Gran % 55.1 (36.0-66.0) % Eos # (Auto) 0.56 H (0-0.5) Absolute Lymphs (auto) 3.61 (1.0-4.6) Absolute Monos (auto) 1.07 (0.0-1.3) Lymphocytes % 30.7 (24.0-44.0) % Monocytes % 9.1 (0.0-12.0) % Eosinophils % 4.8 (0.00-5.0) % Basophils % 0.3 (0.0-0.4) % Absolute Granulocytes 6.49 (1.4-6.9) Basophils # 0.04 (0-0.4) Sodium 139 (137-145) mmol/L Potassium 4.0 (3.5-5.1) mmol/L Chloride 104 (98-107) mmol/L Carbon Dioxide 29 (22-30) mmol/L Anion Gap 10.1 (5-15) MEQ/L BUN 12 (7-17) mg/dL Creatinine 0.87 (0.52-1.04) mg/dL Estimated GFR > 60.0 ML/MIN Glucose 106 (74-106) mg/dL Calcium 9.3 (8.4-10.2) mg/dL Total Bilirubin 0.40 (0.2-1.3) mg/dL AST 50 H (14-36) U/L ALT 34 (0-35) U/L Alkaline Phosphatase 102 (38-126) U/L Troponin I < 0.012 (0.000-0.034) ng/mL Serum Total Protein 7.2 (6.3-8.2) g/dL Albumin 3.8 (3.5-5.0) g/dL Lipase 1155 H (23-300) U/L - Progress Progress: improved Progress Note: 07/31/20 17:46 Work-up reveals a pancreatitis. Lipase is elevated at 1155. Patient advised admission. Patient declined. She states she is got responsibilities at home. Patient does not have family. She is got pets at home that need to be taken care of. Patient states she will return to our ED in the morning. Patient ab solutely refuses admission. Patient is of sound mind. She is appropriate to make informed and independent medical decisions patient understand that leaving AGAINST MEDICAL ADVICE can result in delayed diagnosis, worsening of symptoms, increased risk of morbidity, mortality, short and long-term disability including . In spite of her risks she has decided to leave AGAINST MEDICAL ADVICE. A medical advice form was completed. Patient understand that she may return to our ED at any time if she changes her mind. However patient states she will return to our ED in the morning after she addresses her responsibilities at home. Patient also states that she will see her family doctor if she cannot come to our ED. A prescription for an outpatient gallbladder ultrasound was provided. 07/31/20 17:46 Counseled pt/family regarding: lab results, diagnosis, need for follow-up, rad results - Departure Departure Disposition: Observation Clinical Impression: Pancreatitis, Epigastric pain, Splenomegaly, Umbilical hernia, Constipation Condition: Stable Critical Care Time: No Referrals: JENNI AL [Primary Care Provider] - Additional Instructions: Discharge/Care Plan JADE ORR was seen on 07/31/20 in the Emergency Room. The patient was counseled regarding Diagnosis,Lab results, Imaging studies, need for follow up and when to return to the Emergency Room. Prescriptions given: Discharge Note I have spoken with the patient and/or caregivers. I have explained the patient's condition, diagnosis and treatment plan based on the information available to me at this time. I have answered the patient's and/or caregiver's questions and addressed any concerns. The patient and/or caregivers have as good understanding of the patient's diagnosis, condition and treatment plan as can be expected at this point. The vital signs have been stable. The patient's condition is stable and appropriate for discharge from the emergency department. The patient will pursue further outpatient evaluation with the primary care physician or other designated or consulting physician as outlined in the discharge instructions. The patient and/or caregivers are agreeable to this plan of care and follow-up instructions have been explained in detail. The patient and/or caregivers have received these instruction. The patient/and or caregivers are aware that any significant change in condition or worsening of symptoms should prompt an immediate return to this or the closest emergency department or call 911.
--- NOTE | 2020-07-31 16:23 | XRAY ---
Exam: CT of the abdomen and pelvis with IV contrast 07/31/2020. Total DLP: 1980.05 mGy-cm Comparison: None. Indication: Right-sided abdominal pain below ribs for years, worse today with diarrhea; history of 2 prior sections. Technique: Post-IV contrast axial images were obtained through the abdomen and pelvis during and following automated intravenous injection of 80 cc of Isovue-370 contrast material. No oral contrast was given. Reconstructed coronal and sagittal images were created and reviewed. Findings: The visualized lung bases reveal a few small granulomatous calcifications inferior right lateral to the subcarinal region, the inferior left hilum, and the medial left lung base. I also note some minimal linear atelectasis/scarring at the lateral right lung base and posterior medial left lung base. No pleural fluid is seen. The liver appears slightly enlarged with the right lobe measuring about 21 cm in craniocaudal dimension on coronal image #85. No focal liver mass or intrahepatic biliary duct distention is seen. The gallbladder is mildly distended and reveals no dense calcifications within it. The spleen is of normal size and reveals a small calcified granuloma. No splenic mass is seen. The pancreas appears unremarkable. The adrenal glands are normal size and configuration. The left kidney appears to be slightly smaller than the right kidney. The left kidney measures about 8.9 cm in length on sagittal image #139. The right kidney measures about 11.0 cm in length on sagittal image #84. I see no solid renal mass, renal calculi, or hydronephrosis is seen. Both kidneys function on delay images. The abdominal aorta appears of normal diameter. No abdominal aortic aneurysm or abnormal retroperitoneal lymphadenopathy is seen. There is a small fat-containing umbilical hernia of unremarkable significance. No free intraperitoneal air is seen. Moderate scattered colonic stool is seen. I also note moderate fluid and secretions within the stomach lumen. No bowel obstruction or abnormal bowel wall thickening is seen. The appendix is noted within the right lower quadrant and reveals no inflammatory changes to suggest appendicitis. Within the pelvis the uterus is anteflexed. The urinary bladder is distended and appears unremarkable. A few calcified phleboliths are seen. The pelvic adnexa appear unremarkable. No abnormal pelvic lymphadenopathy or free intraperitoneal fluid is seen. On the bone window images, there appears to be partial sacralization of the most inferior lumbar vertebra on the left representing a developmental variant. Small vertebral endplate spurs are seen throughout the visualized thoracolumbar spine. No fracture or aggressive bone lesion is seen. I see no abnormality within the lower ribs. Impression: 1. Old healed granulomatous disease is seen at the lung bases. 2. Slight hepatomegaly with the right lobe of the liver measuring about 21 cm in greatest craniocaudal dimension. No liver mass or calcified gallstones are seen. No intrahepatic biliary duct distention is seen. 3. Left kidney appears to be slightly smaller than the right kidney and reveals a mild undulating contour. However, both kidneys to function on delay images, and I see no evidence of renal calculi or hydronephrosis. 4. Abundant secretions/fluid is seen within the stomach lumen. I also note moderate colonic stool retention. No bowel obstruction or free air/free fluid is seen. 5. Normal appendix. 6. Small fatty umbilical hernia.
[2020-07-31 17:04] VITALS: BP 119/73; PULSE 101
== END 2020-07-31 18:51 | disposition left against medical advice (07) ==
LOC: ED 14:20
DX: K85.90 Acute pancreatitis without necrosis or infection, unspecified (principal); R10.13 Epigastric pain; R16.1 Splenomegaly, not elsewhere classified; K42.9 Umbilical hernia without obstruction or gangrene; K59.00 Constipation, unspecified; Z79.899 Other long term (current) drug therapy
CPT/HCPCS: 36000; 36415; 74177; 80053; 83690; 84484; 85025; 93005; 96374; 96375; 96376; 99284; J1170; J2405

== ENCOUNTER 2020-08-05 11:41 | Observation (INO) | payer OTHER ==
[2020-08-05 14:48] LABS: Absolute Neutrophil Ct (ANC) 4.04 (1.4-6.9); BASOPHIL % 0.7 % (0.0-0.4); Basophil (Absolute #) 0.06 (0-0.4); Eosinophil % 5.7 % (0.00-5.0); Eosinophil (Absolute #) 0.48 (0-0.5); Hematocrit 37.8 % (35-47); Hemoglobin 11.8 gm/dl (12.0-16.0); Lymphocyte (Absolute #) 3.01 (1.0-4.6); Mean Cell Volume 95.2 fl (78-100); Mean Corpuscular Hemoglobin 29.7 pg (26-32); Mean Corpuscular Hgb Concent. 31.2 g/dl (32-36); Mean Platelet Volume 9.7 fl (7.5-11.0); Monocyte (Absolute #) 0.76 (0.0-1.3); Monocytes % 9.1 % (0.0-12.0); Neutrophil % 48.5 % (36.0-66.0); Platelet Count 324 K/mm3 (150-450); Red Blood Count 3.97 M/mm3 (4.1-5.4); Red Cell Distribution Width 13.3 % (11.5-14.0); White Blood Count 8.4 K/mm3 (4.0-10.5)
[2020-08-05 15:02] LABS: ALBUMIN 4.2 g/dL (3.5-5.0); ALKALINE PHOSPHATASE 113 U/L (38-126); AMYLASE 157 U/L (30-110); ANION GAP 10.1 MEQ/L (5-15); BLOOD UREA NITROGEN 17 mg/dL (7-17); CHLORIDE 103 mmol/L (98-107); Calcium 9.6 mg/dL (8.4-10.2); Carbon Dioxide 26 mmol/L (22-30); Creatinine 1 0.82 mg/dL (0.52-1.04); EST GLOMERULAR FILTRATION RATE > 60.0 ML/MIN; Glucose 98 mg/dL (74-106); Potassium 4.4 mmol/L (3.5-5.1); SGOT/AST 34 U/L (14-36); SGPT/ALT 27 U/L (0-35); SODIUM 135 mmol/L (137-145)
[2020-08-05] MEDS ORDERED: MORPHINE SULFATE 4 MG INJ IV PRN (15:08)
[2020-08-05] MEDS ORDERED: Ativan 2 MG/1 ML VIAL IV PRN (15:08)
--- NOTE | 2020-08-05 15:12 | XRAY ---
Indication: Bilateral abdomen pain. Pancreatitis. Anxiety. Comparison: None KUB nonacute and nonobstructed with mild fecal debris predominantly in the transverse colon and a few pelvic phleboliths. Remaining solid organs unremarkable. Osseous structures intact with mild degenerative changes throughout the thoracolumbar spine. Impression: Negative KUB.
[2020-08-05] MEDS ORDERED: Lactated Ringers 1,000 ML IV SCH ×2 (15:30→16:30)
[2020-08-05] MEDS: Ativan 2 MG/1 ML VIAL IV SCH ×2 (16:56→21:24)
[2020-08-05] MEDS: TYLENOL 325 MG PO PRN (17:10)
[2020-08-05] MEDS: Hydromorphone 1 mg/ml Injection IV PRN (21:04)
[2020-08-05] MEDS: Zofran 4 MG/2 ML VIAL IV PRN (21:24)
[2020-08-05] MEDS: Lactated Ringers 1,000 ML IV SCH (21:24)
[2020-08-05] MEDS ORDERED: zyPREXA 5MG TABLET ONE (21:43)
[2020-08-05] MEDS ORDERED: Zyprexa Zydis 5 MG PO SCH (22:00)
[2020-08-05] MEDS ORDERED: PROTONIX 40 MG IV IV SCH (22:00)
[2020-08-06] MEDS: Lactated Ringers 1,000 ML IV SCH ×2 (03:30→12:36)
[2020-08-06] MEDS: Hydromorphone 1 mg/ml Injection IV PRN ×2 (04:55→12:28)
[2020-08-06 04:59] LABS: Absolute Neutrophil Ct (ANC) 2.16 (1.4-6.9); BASOPHIL % 0.6 % (0.0-0.4); Basophil (Absolute #) 0.04 (0-0.4); Eosinophil % 8.2 % (0.00-5.0); Eosinophil (Absolute #) 0.51 (0-0.5); Hematocrit 37.1 % (35-47); Hemoglobin 11.4 gm/dl (12.0-16.0); Lymphocyte (Absolute #) 2.88 (1.0-4.6); Lymphocytes % 46.2 % (24.0-44.0); Mean Cell Volume 96.9 fl (78-100); Mean Corpuscular Hemoglobin 29.8 pg (26-32); Mean Corpuscular Hgb Concent. 30.7 g/dl (32-36); Mean Platelet Volume 9.4 fl (7.5-11.0); Monocyte (Absolute #) 0.65 (0.0-1.3); Monocytes % 10.4 % (0.0-12.0); Neutrophil % 34.6 % (36.0-66.0); Platelet Count 298 K/mm3 (150-450); Red Blood Count 3.83 M/mm3 (4.1-5.4); Red Cell Distribution Width 13.3 % (11.5-14.0); White Blood Count 6.2 K/mm3 (4.0-10.5)
[2020-08-06 05:21] LABS: ALBUMIN 3.5 g/dL (3.5-5.0); ALKALINE PHOSPHATASE 104 U/L (38-126); ANION GAP 4.9 MEQ/L (5-15); BLOOD UREA NITROGEN 12 mg/dL (7-17); CHLORIDE 106 mmol/L (98-107); Calcium 9.6 mg/dL (8.4-10.2); Carbon Dioxide 30 mmol/L (22-30); Creatinine 1 0.88 mg/dL (0.52-1.04); EST GLOMERULAR FILTRATION RATE > 60.0 ML/MIN; Glucose 97 mg/dL (74-106); LIPASE 77 U/L (23-300); Potassium 4.5 mmol/L (3.5-5.1); SGOT/AST 34 U/L (14-36); SGPT/ALT 25 U/L (0-35); SODIUM 137 mmol/L (137-145); Total Protein 6.8 g/dL (6.3-8.2)
[2020-08-06] MEDS ORDERED: Lactated Ringers 1,000 ML IV SCH (07:30)
[2020-08-06] MEDS ORDERED: Xylocaine-Mpf 2% 5 Ml Vial ONE (08:28)
[2020-08-06] MEDS ORDERED: DIPRIVAN 200 MG/20 ML IV ONE (08:28)
--- NOTE | 2020-08-06 08:41 | XRAY ---
Indication: Right upper quadrant pain. Two-dimensional gallbladder sonogram performed. Comparison: None Gallbladder normally distended without gallstones, wall thickening, or pericholecystic fluid. Common bile duct measures 2.9 mm. No intrahepatic biliary distention. Remaining visualized portions of the liver, pancreas, and right kidney appear sonographically unremarkable. Right kidney measures 10.4 cm in length. No ascites. Impression: Negative gallbladder sonogram.
--- NOTE | 2020-08-06 09:16 | OP ---
SURGERY DATE/TIME: 08/06/2020 0830 PREOPERATIVE DIAGNOSIS: Epigastric abdominal pain. POSTOPERATIVE DIAGNOSIS: Moderate gastritis. PROCEDURE: EGD. SURGEON: Onur Green M.D. ANESTHESIA: MAC by Rajan Sanchez CRNA. ESTIMATED BLOOD LOSS: Minimal. SPECIMENS: Two cold forceps biopsies were taken from the gastric antrum for Helicobacter pylori testing. DESCRIPTION OF PROCEDURE: After informed written consent was obtained, the patient was taken to the endoscopy suite. She was placed in the left lateral decubitus position. A bite block was inserted. Anesthesia was titrated to the desired level of consciousness. The endoscope was inserted into the posterior oropharynx. Under direct visualization the esophagus was easily traversed and showed no obvious mucosal abnormalities. The gastroesophageal junction had a normal mucosal appearance and upon entering the stomach there was a normal rugated gastric mucosa. In the area of the pylorus there were moderate inflammatory changes consistent with moderate gastritis. No bleeding or focal ulceration was appreciable. The pylorus was traversed and the first and second portions of the duodenum showed no obvious mucosal abnormalities. Two cold forceps biopsies were taken from the gastric antrum and sent for Helicobacter pylori testing. The remainder of the exam was again unremarkable upon removal of the scope. The scope was removed and the patient was transferred back to the floor in good condition. I have advised continuation of IV proton pump inhibitor and avoidance of any NSAID's or aspirin products, etc. Will await pathology results.
[2020-08-06] MEDS: Ativan 2 MG/1 ML VIAL IV SCH (09:21)
[2020-08-06] MEDS: TYLENOL 325 MG PO PRN (09:40)
[2020-08-06] MEDS ORDERED: NON-FORMULARY ITEM (Duloxetine Hcl [Cymbalta] 120 MG) PO SCH (10:00)
[2020-08-06] MEDS ORDERED: Cymbalta 30 MG Capsule PO SCH (10:00)
--- NOTE | 2020-08-06 11:41 | PCM.HP.ADD ---
Addendum to History & Physical - History & Physical Addendum Addendum to History & Physical: This certifies that the History & Physical in the electronic chart reflects the current health status of the patient. If there are changes in the H&P these changes/exceptions are listed as follows.
--- NOTE | 2020-08-06 11:46 | PCM.DS ---
Discharge Summary Date of Admission: 08/05/20 14:00 Admitting Physician: JENNI AL Consults: Consults on Case 08/05/20 14:39 Consult Surgery ROUTINE Primary Care Provider: JENNI AL Allergies Allergies Penicillins Allergy (Unknown, Verified 07/10/20 16:25) morphine Adverse Reaction (Verified 08/05/20 14:55) vomiting Hospital Summary - Hospital Course Hospital Course: Pt is 54 yo female admitted with pancreatitis and RUQ pain. Lipase was 1400 initially and down to 77 today. She had an EGD with mild gastritis. Will discharge to home if she tolerates po all morning. U/s RUQ was nl. KUB nl. Will do HIDA outpatient. Pt also c/o LE edema and REEVES so will do echo outpatient. - Vitals & Intake/Output Vital Signs: Vital Signs Temperature 97.7 F 08/06/20 08:03 Pulse Rate 96 H 08/06/20 08:03 Respiratory Rate 18 08/06/20 08:03 Blood Pressure 138/71 08/06/20 08:03 O2 Sat by Pulse Oximetry 92 L 08/06/20 08:03 Intake & Output: Intake & Output 08/03/20 08/04/20 08/05/20 08/06/20 11:59 11:59 11:59 11:59 Intake Total 3341 Output Total 200 Balance 3141 Weight 110.5 kg - Lab Result Diagrams: 08/06/20 04:30 08/06/20 04:30 Lab Results-Last 24 Hrs: Lab Results-Last 24 Hours 08/05/20 08/05/20 08/05/20 Range/Units 14:30 14:35 14:35 WBC 8.4 (4.0-10.5) K/mm3 RBC 3.97 L (4.1-5.4) M/mm3 Hgb 11.8 L (12.0-16.0) gm/dl Hct 37.8 (35-47) % MCV 95.2 (78-100) fl MCH 29.7 (26-32) pg MCHC 31.2 L (32-36) g/dl RDW 13.3 (11.5-14.0) % Plt Count 324 (150-450) K/mm3 MPV 9.7 (7.5-11.0) fl Gran % 48.5 (36.0-66.0) % Eos # (Auto) 0.48 (0-0.5) Absolute Lymphs (auto) 3.01 (1.0-4.6) Absolute Monos (auto) 0.76 (0.0-1.3) Lymphocytes % 36.0 (24.0-44.0) % Monocytes % 9.1 (0.0-12.0) % Eosinophils % 5.7 H (0.00-5.0) % Basophils % 0.7 (0.0-0.4) % Absolute Granulocytes 4.04 (1.4-6.9) Basophils # 0.06 (0-0.4) Sodium (137-145) mmol/L Potassium (3.5-5.1) mmol/L Chloride (98-107) mmol/L Carbon Dioxide (22-30) mmol/L Anion Gap (5-15) MEQ/L BUN (7-17) mg/dL Creatinine (0.52-1.04) mg/dL Estimated GFR ML/MIN Glucose (74-106) mg/dL Lactic Acid 0.8 (0.4-2.0) Calcium (8.4-10.2) mg/dL Total Bilirubin (0.2-1.3) mg/dL AST (14-36) U/L ALT (0-35) U/L Alkaline Phosphatase (38-126) U/L Serum Total Protein (6.3-8.2) g/dL Albumin (3.5-5.0) g/dL Amylase (30-110) U/L Lipase 1401 H (23-300) U/L 08/05/20 08/06/20 08/06/20 Range/Units 14:35 04:30 04:30 WBC 6.2 (4.0-10.5) K/mm3 RBC 3.83 L (4.1-5.4) M/mm3 Hgb 11.4 L (12.0-16.0) gm/dl Hct 37.1 (35-47) % MCV 96.9 (78-100) fl MCH 29.8 (26-32) pg MCHC 30.7 L (32-36) g/dl RDW 13.3 (11.5-14.0) % Plt Count 298 (150-450) K/mm3 MPV 9.4 (7.5-11.0) fl Gran % 34.6 L (36.0-66.0) % Eos # (Auto) 0.51 H (0-0.5) Absolute Lymphs (auto) 2.88 (1.0-4.6) Absolute Monos (auto) 0.65 (0.0-1.3) Lymphocytes % 46.2 H (24.0-44.0) % Monocytes % 10.4 (0.0-12.0) % Eosinophils % 8.2 H (0.00-5.0) % Basophils % 0.6 (0.0-0.4) % Absolute Granulocytes 2.16 (1.4-6.9) Basophils # 0.04 (0-0.4) Sodium 135 L 137 (137-145) mmol/L Potassium 4.4 4.5 (3.5-5.1) mmol/L Chloride 103 106 (98-107) mmol/L Carbon Dioxide 26 30 (22-30) mmol/L Anion Gap 10.1 4.9 L (5-15) MEQ/L BUN 17 12 (7-17) mg/dL Creatinine 0.82 0.88 (0.52-1.04) mg/dL Estimated GFR > 60.0 > 60.0 ML/MIN Glucose 98 97 (74-106) mg/dL Lactic Acid (0.4-2.0) Calcium 9.6 9.6 (8.4-10.2) mg/dL Total Bilirubin 0.40 0.60 (0.2-1.3) mg/dL AST 34 34 (14-36) U/L ALT 27 25 (0-35) U/L Alkaline Phosphatase 113 104 (38-126) U/L Serum Total Protein 8.0 6.8 (6.3-8.2) g/dL Albumin 4.2 3.5 (3.5-5.0) g/dL Amylase 157 H (30-110) U/L Lipase 77 (23-300) U/L Micro Results-Entire Visit: Microbiology 08/05/20 15:30 Urine Culture - Preliminary Clean Catch Midstream NO GROWTH TO DATE - Radiology Exams Ordered Rad Exams-Entire Visit: Radiology Procedures Category Date Time Status KUB Stat Exams 08/05/20 15:00 Completed Ultrasound Gallbladder [GALLBLADDER] [US] Routine Exams 08/06/20 07:00 C ompleted Discharge Exam General Appearance: no apparent distress, alert Neurologic Exam: oriented x 3, cooperative Eye Exam: eyes nml inspection Ears, Nose, Throat Exam: moist mucous membranes Neck Exam: normal inspection Respiratory Exam: normal breath sounds, lungs clear, No crackles/rales, No rhonchi, No wheezing Cardiovascular Exam: regular rate/rhythm, normal heart sounds, No murmur Gastrointestinal/Abdomen Exam: soft, normal bowel sounds, tenderness (RUQ), No distention, No mass, No guarding, No rebound Back Exam: normal inspection, No rash Extremity Exam: normal inspection, No pedal edema, No swelling Skin Exam: normal color, warm, dry, No rash Final Diagnosis/Problem List - Final Discharge Diagnosis/Problem (1) Pancreatitis Current Visit: No Status: Resolved Assessment & Plan: Unsure etiology - will likely need to f/u with GI outpatient. Code(s): K85.90 - ACUTE PANCREATITIS WITHOUT NECROSIS OR INFECTION, UNSP (2) Abdominal pain Current Visit: No Status: Chronic Assessment & Plan: RUQ - u/s gallbladder wnl. HIDA outpatient. Code(s): R10.9 - UNSPECIFIED ABDOMINAL PAIN (3) REEVES (dyspnea on exertion) Current Visit: Yes Status: Chronic Assessment & Plan: echo. f/u with me in 1 wk. Code(s): R06.00 - DYSPNEA, UNSPECIFIED - Discharge Disposition: Home, Self-Care Condition: Stable Prescriptions: New Omeprazole 20 mg PO DAILY #30 capsule. Continue Alprazolam 1 mg [Xanax 1 mg] 1 mg PO DAILY Olanzapine 5 mg [zyPREXA 5MG TABLET] 5 mg PO HS Alprazolam 1 mg [Xanax 1 mg] 2 mg PO HS Duloxetine HCl [Cymbalta] 120 mg PO DAILY Follow up with: JENNI AL [Primary Care Provider] -
[2020-08-06] MEDS: Zofran 4 MG/2 ML VIAL IV PRN (12:28)
[2020-08-06 14:29] VITALS: BP 135/72; PULSE 94; O2SAT 96
[2020-08-06] MEDS ORDERED: zyPREXA 5MG TABLET PO SCH (22:00)
== END 2020-08-06 14:44 | disposition home or self-care (01) ==
LOC: MED SURG 14:00
PROVIDERS: ADMIT Family Medicine; ATTEND Family Medicine
DX: K85.90 Acute pancreatitis without necrosis or infection, unspecified (principal); K29.70 Gastritis, unspecified, without bleeding; R06.00 Dyspnea, unspecified; Z79.899 Other long term (current) drug therapy; F31.9 Bipolar disorder, unspecified
CPT/HCPCS: 0241U; 36415; 43235; 74018; 76705; 80053; 82150; 83605; 83690; 85025; 87086; G0378; J1170; J2060; J2405; J2704; A9270-GY

== ENCOUNTER 2020-12-03 16:20 | Observation (INO) | payer OTHER ==
[2020-12-03 16:40] LABS: Absolute Neutrophil Ct (ANC) 3.97 (1.4-6.9); BASOPHIL % 0.4 % (0.0-0.4); Basophil (Absolute #) 0.04 (0-0.4); Eosinophil % 10.8 % (0.00-5.0); Eosinophil (Absolute #) 0.97 (0-0.5); Hemoglobin 11.9 gm/dl (12.0-16.0); Lymphocytes % 31.1 % (24.0-44.0); Mean Cell Volume 94.6 fl (78-100); Mean Corpuscular Hemoglobin 30.4 pg (26-32); Mean Corpuscular Hgb Concent. 32.2 g/dl (32-36); Mean Platelet Volume 9.6 fl (7.5-11.0); Monocyte (Absolute #) 1.23 (0.0-1.3); Monocytes % 13.7 % (0.0-12.0); Platelet Count 318 K/mm3 (150-450); Red Blood Count 3.91 M/mm3 (4.1-5.4); Red Cell Distribution Width 12.8 % (11.5-14.0)
[2020-12-03 16:47] LABS: INR 0.87 (0.8-3.0); PROTIME 10.3 SECONDS (9.4-12.5)
[2020-12-03 16:50] LABS: PTT 28.7 SECONDS (25.1-36.5)
--- NOTE | 2020-12-03 16:52 | XRAY ---
Indication: Chest pain. Comparison: November 26, 2020. Portable chest remains clear again with incidental tiny calcified granulomas. Heart not enlarged. Bony thorax intact again with mild osteopenia and degenerative changes. Impression: Continued nonacute chest with chronic features.
--- NOTE | 2020-12-03 16:56 | ERPHSYRPT ---
- History of Present Illness Historian: patient Exam Limitations: no limitations Patient Subjective Stated Complaint: patient states she had covid in april 2020, states in symptoms progressively became worse. Patient states she has been having swelling and pain for a "couple weeks" bilateral under ribs, worse on L side. Triage Nursing Assessment: Patient presents to ED with complains of chest discomfort and pain under ribs. Patient is swollen bilateral hands and arms. Skin pink dry. Patient short of breath, no retractions at this time. Physician History: 55 yo wf w LE edema x2 wks/L lateral thoracic pain x2 wks/Sub-xyphoid pain x2 wks. Pain is sharp and rated 7/10. She has dyspnea but denies N/V/diaphoresis. Nothing makes the pain better or worse. Cough/Fever/melena/hematochezia are denied. Pt had CV19 in . Dr. Elias called and wanted pt admitted. DD 11/26/20 negative. Timing/Duration: other (2 wks) Quality: sharpness, stabbing Location: other (Sub-xyphoid/L lateral/R lateral) Severity of Pain-Max: severe Severity of Pain-Current: moderate Modifying Factors: Improves With: nothing Associated Symptoms: abdominal pain, shortness of breath, edema, No nausea, No vomiting, No palpitations, No heartburn, No cough, No hurts to breathe, No diaphoresis, No chills, No fever, No fatigue, No weakness, No swelling/lump in chest, No syncope, No rash, No headache, No dizziness, No back pain Prior Chest Pain/Cardiac Workup: no prior cardiac workup Nitro Today/Relief: no nitro taken today Aspirin Treatment Today: no aspirin today Allergies/Adverse Reactions: Penicillins Allergy (Unknown, Verified 12/03/20 16:36) morphine Adverse Reaction (Verified 12/03/20 16:36) vomiting Home Medications: ALPRAZolam 1 MG [Xanax 1 mg] 1 mg PO DAILY 05/31/15 [History] Olanzapine 5 mg [zyPREXA 5MG TABLET] 5 mg PO HS 07/31/20 [History] ALPRAZolam 1 MG [Xanax 1 mg] 2 mg PO HS 08/05/20 [History] Duloxetine HCl [Cymbalta] 120 mg PO DAILY 08/05/20 [History] Hx Tetanus, Diphtheria Vaccination/Date Given: Yes Hx Influenza Vaccination/Date Given: No Hx Pneumococcal Vaccination/Date Given: No Travel Risk - International Travel Have you traveled outside of the country in past 3 weeks: No - Coronavirus Screening Are you exhibiting any of the following symptoms?: No - Vaccine Status Have you recieved a Covid-19 vaccination: No - Review of Systems Constitutional: No Symptoms Eyes: No Symptoms Ears, Nose, & Throat: No Symptoms Respiratory: No Symptoms, Dyspnea Cardiac: No Symptoms, Chest Pain Abdominal/Gastrointestinal: No Symptoms Genitourinary Symptoms: No Symptoms Musculoskeletal: No Symptoms Skin: No Symptoms Neurological: No Symptoms Psychological: No Symptoms Endocrine: No Symptoms Hematologic/Lymphatic: No Symptoms Immunological/Allergic: No Symptoms - Past Medical History Pertinent Past Medical History: Yes Neurological History: No Pertinent History ENT History: No Pertinent History Cardiac History: Myocardial Infarction (PA), Other Respiratory History: No Pertinent History Endocrine Medical History: No Pertinent History Musculoskeletal History: No Pertinent History GI Medical History: No Pertinent History History: No Pertinent History Psycho-Social History: Anxiety, Depression Female Reproductive Disorders: No Pertinent History Other Medical History: possible PA, pt unsure - 2014, regurgitating valve, constant leg pain - Past Surgical History Past Surgical History: Yes Neuro Surgical History: No Pertinent History Cardiac: No Pertinent History Respiratory: No Pertinent History Gastrointestinal: No Pertinent History Genitourinary: No Pertinent History Musculoskeletal: No Pertinent History Female Surgical History: Section Other Surgical History: ovarian cyst removed at age 20 - Social History Smoking Status: Never smoker Exposure to second hand smoke: No Drug Use: none Patient Lives Alone: Yes Significant Family History: no pertinent family hx - Nursing Vital Signs Nursing Vital Signs: Initial Vital Signs Temperature 97.9 F 12/03/20 16:23 Pulse Rate 120 H 12/03/20 16:23 Respiratory Rate 20 12/03/20 16:23 Blood Pressure 132/72 12/03/20 16:23 O2 Sat by Pulse Oximetry 96 12/03/20 16:23 Pain Scale Pain Intensity 7 Tachycardic - Physical Exam General Appearance: no apparent distress Eye Exam: PERRL/EOMI, eyes nml inspection Ears, Nose, Throat Exam: normal ENT inspection, TMs normal, pharynx normal, moist mucous membranes Neck Exam: normal inspection, non-tender, supple, full range of motion Respiratory Exam: normal breath sounds, chest tenderness, lungs clear, airway intact, No respiratory distress Cardiovascular Exam: tachycardia, No murmur Gastrointestinal/Abdomen Exam: soft, normal bowel sounds, tenderness (Mod sub- xyphoid ttp wo gurading or rebound) Back Exam: normal inspection, normal range of motion Extremity Exam: normal inspection, normal range of motion Neurologic Exam: alert, oriented x 3, cooperative, oncology admin II-XII nml as tested, normal mood/affect, sensation nml Skin Exam: normal color, warm, dry Lymphatic Exam: No adenopathy SpO2 Interpretation: normal SpO2: 96 O2 Delivery: Room Air - Course Nursing assessment & vital signs reviewed: Yes EKG Interpreted by Me: RATE (Sinus tach/R116/Prolonged QTc/Low voltage) - Radiology Exams Chest X-ray Interpretation: Discussed w/ radiologist (NAD) Ordered Tests: Active Orders 24 hr Category Date Time Status EKG-ER Only STAT Care 12/03/20 16:24 Completed IV Insertion STAT Care 12/03/20 16:24 Completed Heart-Healthy Diet Diet 12/03/20 Dinner Active CHEST 1 VIEW (PORTABLE) Stat Exams 12/03/20 16:25 Completed ECHO W/2D AND DOPPLER [US] Stat Exams 12/04/20 Stop Req AMYLASE Stat Lab 12/03/20 16:35 Completed CBC W DIFF Stat Lab 12/03/20 16:35 Completed CMP Stat Lab 12/03/20 16:35 Completed LIPASE Stat Lab 12/03/20 16:35 Completed LIPID PROFILE AM.LAB Lab 12/04/20 04:00 Ordered NT PRO BNP Stat Lab 12/03/20 16:35 Completed PROTIME WITH INR Stat Lab 12/03/20 16:35 Completed PTT Stat Lab 12/03/20 16:35 Completed TROPONIN Q3H Lab 12/03/20 16:35 Completed TROPONIN Q3H Lab 12/03/20 18:31 Completed TROPONIN Q3H Lab 12/03/20 22:30 Ordered TROPONIN Q3H Lab 12/04/20 01:30 Ordered TROPONIN Q3H Lab 12/04/20 04:30 Ordered Transfer Order Routine Transfer 12/03/20 Completed Medication Summary Generic Name Dose Route Start Last Admin Trade Name Freq PRN Reason Stop Dose Admin Acetaminophen 650 mg 12/03/20 17:33 Tylenol 325 Mg PO 01/02/21 17:32 Q4H PRN PRN PAIN AND/OR FEVER Al Hydrox/Mg Hydrox/Simethicone 30 ml 12/03/20 17:33 Maalox Es 30 Ml Unit Dose PO 01/02/21 17:32 Q4H PRN PRN INDIGESTION Aspirin 325 mg 12/04/20 10:00 Ecotrin 325 Mg PO 01/03/21 09:59 DAILY MIKO Enoxaparin Sodium 40 mg 12/04/20 10:00 Enoxaparin Sodium SQ 01/03/21 09:59 DAILY MIKO Magnesium Hydroxide 30 - 60 ml 12/03/20 17:33 Milk Of Magnesia 30 Ml PO 01/02/21 17:32 QDP PRN CONSTIPATION Morphine Sulfate 2 mg 12/03/20 17:33 Morphine Sulfate 2 Mg Inj IV 12/08/20 17:32 .Q15MIN PRN PRN CHEST PAIN Ondansetron HCl 4 mg 12/03/20 17:33 Zofran 4 Mg/2 Ml Vial IV 01/02/21 17:32 Q4H PRN PRN NAUSEA/VOMITING Senna/Docusate Sodium 2 udtab 12/03/20 17:33 Senokot-S Tablet PO 01/02/21 17:32 BID PRN PRN CONSTIPATION Discontinued Medications Generic Name Dose Route Start Last Admin Trade Name Freq PRN Reason Stop Dose Admin Aspirin 324 mg 12/03/20 17:40 12/03/20 17:53 Baby Aspirin 81 Mg Chew PO 12/03/20 17:41 324 mg STAT ONE Administration Ketorolac Tromethamine 30 mg 12/03/20 17:40 12/03/20 17:54 Toradol 30 Mg Injection IV 12/03/20 17:41 30 mg STAT ONE Administration Ketorolac Tromethamine Confirm 12/03/20 17:53 Toradol 30 Mg Injection Administered 12/03/20 17:54 Dose 30 mg .ROUTE .STK-MED ONE Lab/Rad Data: Laboratory Result Diagrams 12/03/20 16:35 12/03/20 16:35 Laboratory Results 12/03/20 12/03/20 12/03/20 Range/Units 18:31 17:33 16:35 WBC (4.0-10.5) K/mm3 RBC (4.1-5.4) M/mm3 Hgb (12.0-16.0) gm/dl Hct (35-47) % MCV (78-100) fl MCH (26-32) pg MCHC (32-36) g/dl RDW (11.5-14.0) % Plt Count (150-450) K/mm3 MPV (7.5-11.0) fl Gran % (36.0-66.0) % Eos # (Auto) (0-0.5) Absolute Lymphs (auto) (1.0-4.6) Absolute Monos (auto) (0.0-1.3) Lymphocytes % (24.0-44.0) % Monocytes % (0.0-12.0) % Eosinophils % (0.00-5.0) % Basophils % (0.0-0.4) % Absolute Granulocytes (1.4-6.9) Basophils # (0-0.4) PT (9.4-12.5) SECONDS INR (0.8-3.0) APTT (25.1-36.5) SECONDS Sodium (137-145) mmol/L Potassium (3.5-5.1) mmol/L Chloride (98-107) mmol/L Carbon Dioxide (22-30) mmol/L Anion Gap (5-15) MEQ/L BUN (7-17) mg/dL Creatinine (0.52-1.04) mg/dL Estimated GFR ML/MIN Glucose (74-106) mg/dL Calcium (8.4-10.2) mg/dL Total Bilirubin (0.2-1.3) mg/dL AST (14-36) U/L ALT (0-35) U/L Alkaline Phosphatase (38-126) U/L Troponin I < 0.012 (0.000-0.034) ng/mL NT-Pro-B Natriuret Pep (0-900) pg/mL Serum Total Protein (6.3-8.2) g/dL Albumin (3.5-5.0) g/dL Amylase 65 (30-110) U/L Lipase 77 (23-300) U/L SARS-CoV-2 (PCR) NEGATIVE (NEGATIVE) 12/03/20 12/03/20 12/03/20 Range/Units 16:35 16:35 16:35 WBC (4.0-10.5) K/mm3 RBC (4.1-5.4) M/mm3 Hgb (12.0-16.0) gm/dl Hct (35-47) % MCV (78-100) fl MCH (26-32) pg MCHC (32-36) g/dl RDW (11.5-14.0) % Plt Count (150-450) K/mm3 MPV (7.5-11.0) fl Gran % (36.0-66.0) % Eos # (Auto) (0-0.5) Absolute Lymphs (auto) (1.0-4.6) Absolute Monos (auto) (0.0-1.3) Lymphocytes % (24.0-44.0) % Monocytes % (0.0-12.0) % Eosinophils % (0.00-5.0) % Basophils % (0.0-0.4) % Absolute Granulocytes (1.4-6.9) Basophils # (0-0.4) PT 10.3 (9.4-12.5) SECONDS INR 0.87 (0.8-3.0) APTT 28.7 (25.1-36.5) SECONDS Sodium 138 (137-145) mmol/L Potassium 4.4 (3.5-5.1) mmol/L Chloride 106 (98-107) mmol/L Carbon Dioxide 24 (22-30) mmol/L Anion Gap 12.2 (5-15) MEQ/L BUN 15 (7-17) mg/dL Creatinine 0.90 (0.52-1.04) mg/dL Estimated GFR > 60.0 ML/MIN Glucose 118 H (74-106) mg/dL Calcium 9.6 (8.4-10.2) mg/dL Total Bilirubin 0.30 (0.2-1.3) mg/dL AST 28 (14-36) U/L ALT 36 H (0-35) U/L Alkaline Phosphatase 119 (38-126) U/L Troponin I < 0.012 (0.000-0.034) ng/mL NT-Pro-B Natriuret Pep 25.6 (0-900) pg/mL Serum Total Protein 7.3 (6.3-8.2) g/dL Albumin 3.9 (3.5-5.0) g/dL Amylase (30-110) U/L Lipase (23-300) U/L SARS-CoV-2 (PCR) (NEGATIVE) 12/03/20 Range/Units 16:35 WBC 9.0 (4.0-10.5) K/mm3 RBC 3.91 L (4.1-5.4) M/mm3 Hgb 11.9 L (12.0-16.0) gm/dl Hct 37.0 (35-47) % MCV 94.6 (78-100) fl MCH 30.4 (26-32) pg MCHC 32.2 (32-36) g/dl RDW 12.8 (11.5-14.0) % Plt Count 318 (150-450) K/mm3 MPV 9.6 (7.5-11.0) fl Gran % 44.0 (36.0-66.0) % Eos # (Auto) 0.97 H (0-0.5) Absolute Lymphs (auto) 2.80 (1.0-4.6) Absolute Monos (auto) 1.23 (0.0-1.3) Lymphocytes % 31.1 (24.0-44.0) % Monocytes % 13.7 H (0.0-12.0) % Eosinophils % 10.8 H (0.00-5.0) % Basophils % 0.4 (0.0-0.4) % Absolute Granulocytes 3.97 (1.4-6.9) Basophils # 0.04 (0-0.4) PT (9.4-12.5) SECONDS INR (0.8-3.0) APTT (25.1-36.5) SECONDS Sodium (137-145) mmol/L Potassium (3.5-5.1) mmol/L Chloride (98-107) mmol/L Carbon Dioxide (22-30) mmol/L Anion Gap (5-15) MEQ/L BUN (7-17) mg/dL Creatinine (0.52-1.04) mg/dL Estimated GFR ML/MIN Glucose (74-106) mg/dL Calcium (8.4-10.2) mg/dL Total Bilirubin (0.2-1.3) mg/dL AST (14-36) U/L ALT (0-35) U/L Alkaline Phosphatase (38-126) U/L Troponin I (0.000-0.034) ng/mL NT-Pro-B Natriuret Pep (0-900) pg/mL Serum Total Protein (6.3-8.2) g/dL Albumin (3.5-5.0) g/dL Amylase (30-110) U/L Lipase (23-300) U/L SARS-CoV-2 (PCR) (NEGATIVE) - Progress Progress: improved Progress Note: 12/03/20 17:[address] Elias 12/03/20 21:29 30mg IV Toradol/ASA 324 po Discussed with : Vidhi Will see patient in: hospital (observation) Counseled pt/family regarding: lab results, diagnosis, rad results - Departure Departure Disposition: Observation Clinical Impression: Chest pain Condition: Stable Critical Care Time: No
[2020-12-03 17:01] LABS: ALBUMIN 3.9 g/dL (3.5-5.0); ALKALINE PHOSPHATASE 119 U/L (38-126); ANION GAP 12.2 MEQ/L (5-15); BLOOD UREA NITROGEN 15 mg/dL (7-17); CHLORIDE 106 mmol/L (98-107); Calcium 9.6 mg/dL (8.4-10.2); Carbon Dioxide 24 mmol/L (22-30); EST GLOMERULAR FILTRATION RATE > 60.0 ML/MIN; Glucose 118 mg/dL (74-106); NT PRO BNP 25.6 pg/mL (0-900); Potassium 4.4 mmol/L (3.5-5.1); SGOT/AST 28 U/L (14-36); SGPT/ALT 36 U/L (0-35); SODIUM 138 mmol/L (137-145); Total Protein 7.3 g/dL (6.3-8.2)
[2020-12-03 17:10] LABS: AMYLASE 65 U/L (30-110); LIPASE 77 U/L (23-300)
[2020-12-03] MEDS ORDERED: Senokot-S Tablet PO PRN (17:33)
[2020-12-03] MEDS ORDERED: MORPHINE SULFATE 2 MG INJ IV PRN (17:33)
[2020-12-03] MEDS ORDERED: MAALOX ES 30 ML UNIT DOSE PO PRN (17:33)
[2020-12-03] MEDS ORDERED: TYLENOL 325 MG PO PRN (17:33)
[2020-12-03] MEDS ORDERED: MILK OF MAGNESIA 30 ML PO PRN (17:33)
[2020-12-03] MEDS ORDERED: Zofran 4 MG/2 ML VIAL IV PRN (17:33)
[2020-12-03] MEDS ORDERED: BABY ASPIRIN 81 MG CHEW PO ONE (17:40)
[2020-12-03] MEDS ORDERED: TORAdol 30 mg Injection IV ONE (17:40)
[2020-12-03] MEDS ORDERED: TORAdol 30 mg Injection ONE (17:53)
[2020-12-04 05:55] LABS: Risk Ratio 5.1
[2020-12-04] MEDS ORDERED: MEDICATION INTERVENTION IV SCH (07:45)
[2020-12-04] MEDS ORDERED: ENOXAPARIN SODIUM SQ SCH (10:00)
[2020-12-04] MEDS ORDERED: Ecotrin 325 MG PO SCH (10:00)
[2020-12-04] MEDS ORDERED: LASIX 20 MG PO PRN (10:05)
[2020-12-04] MEDS ORDERED: XANAX 1 MG PO SCH ×2 (11:00→22:00)
[2020-12-04 12:05] VITALS: BP 131/76; PULSE 95; O2SAT 95
--- NOTE | 2020-12-04 12:47 | PCM.DS ---
Discharge Summary Date of Admission: 12/03/20 19:39 Admitting Physician: JENNI AL Primary Care Provider: JENNI AL Allergies Allergies Penicillins Allergy (Unknown, Verified 12/03/20 16:36) morphine Adverse Reaction (Verified 12/03/20 16:36) vomiting Hospital Summary - Hospital Course Hospital Course: Pt admitted through ER with chest pain to r/o [place]; she had been seen in office the same day (see note). Her labs have been normal as yet; after 5 normal troponins she will be discharged to home. Will need outpatient stress test. Is having echocardiogram today. She had a negative d-dimer earlier this month and today. CXR have been neg. Had u/s gb and HIDA scan earlier this month which were neg. Pt is c/o L lower rib pain that is persistent today and LE edema. WIll send her home with instructions on avoiding salt. F/u with me in 1 week. - Vitals & Intake/Output Vital Signs: Vital Signs Temperature 98.8 F 12/04/20 12:00 Pulse Rate 95 H 12/04/20 12:00 Respiratory Rate 20 12/04/20 12:00 Blood Pressure 131/76 12/04/20 12:00 O2 Sat by Pulse Oximetry 95 12/04/20 12:00 Intake & Output: Intake & Output 12/02/20 12/03/20 12/04/20 12/05/20 11:59 11:59 11:59 11:59 Intake Total 240 Balance 240 Weight 118 kg - Lab Result Diagrams: 12/03/20 16:35 12/03/20 16:35 Lab Results-Last 24 Hrs: Lab Results-Last 24 Hours 12/03/20 12/03/20 12/03/20 Range/Units 16:35 16:35 16:35 WBC 9.0 (4.0-10.5) K/mm3 RBC 3.91 L (4.1-5.4) M/mm3 Hgb 11.9 L (12.0-16.0) gm/dl Hct 37.0 (35-47) % MCV 94.6 (78-100) fl MCH 30.4 (26-32) pg MCHC 32.2 (32-36) g/dl RDW 12.8 (11.5-14.0) % Plt Count 318 (150-450) K/mm3 MPV 9.6 (7.5-11.0) fl Gran % 44.0 (36.0-66.0) % Eos # (Auto) 0.97 H (0-0.5) Absolute Lymphs (auto) 2.80 (1.0-4.6) Absolute Monos (auto) 1.23 (0.0-1.3) Lymphocytes % 31.1 (24.0-44.0) % Monocytes % 13.7 H (0.0-12.0) % Eosinophils % 10.8 H (0.00-5.0) % Basophils % 0.4 (0.0-0.4) % Absolute Granulocytes 3.97 (1.4-6.9) Basophils # 0.04 (0-0.4) PT 10.3 (9.4-12.5) SECONDS INR 0.87 (0.8-3.0) APTT 28.7 (25.1-36.5) SECONDS D-Dimer (215-500) ng/mL Sodium 138 (137-145) mmol/L Potassium 4.4 (3.5-5.1) mmol/L Chloride 106 (98-107) mmol/L Carbon Dioxide 24 (22-30) mmol/L Anion Gap 12.2 (5-15) MEQ/L BUN 15 (7-17) mg/dL Creatinine 0.90 (0.52-1.04) mg/dL Estimated GFR > 60.0 ML/MIN Glucose 118 H (74-106) mg/dL Calcium 9.6 (8.4-10.2) mg/dL Total Bilirubin 0.30 (0.2-1.3) mg/dL AST 28 (14-36) U/L ALT 36 H (0-35) U/L Alkaline Phosphatase 119 (38-126) U/L Troponin I (0.000-0.034) ng/mL NT-Pro-B Natriuret Pep 25.6 (0-900) pg/mL Serum Total Protein 7.3 (6.3-8.2) g/dL Albumin 3.9 (3.5-5.0) g/dL Triglycerides (30-150) mg/dL Cholesterol (50-200) mg/dL LDL Cholesterol (30-100) mg/dL HDL Cholesterol (40-60) mg/dL Heart Disease Risk Ratio Amylase (30-110) U/L Lipase (23-300) U/L SARS-CoV-2 (PCR) (NEGATIVE) 12/03/20 12/03/20 12/03/20 Range/Units 16:35 16:35 17:33 WBC (4.0-10.5) K/mm3 RBC (4.1-5.4) M/mm3 Hgb (12.0-16.0) gm/dl Hct (35-47) % MCV (78-100) fl MCH (26-32) pg MCHC (32-36) g/dl RDW (11.5-14.0) % Plt Count (150-450) K/mm3 MPV (7.5-11.0) fl Gran % (36.0-66.0) % Eos # (Auto) (0-0.5) Absolute Lymphs (auto) (1.0-4.6) Absolute Monos (auto) (0.0-1.3) Lymphocytes % (24.0-44.0) % Monocytes % (0.0-12.0) % Eosinophils % (0.00-5.0) % Basophils % (0.0-0.4) % Absolute Granulocytes (1.4-6.9) Basophils # (0-0.4) PT (9.4-12.5) SECONDS INR (0.8-3.0) APTT (25.1-36.5) SECONDS D-Dimer (215-500) ng/mL Sodium (137-145) mmol/L Potassium (3.5-5.1) mmol/L Chloride (98-107) mmol/L Carbon Dioxide (22-30) mmol/L Anion Gap (5-15) MEQ/L BUN (7-17) mg/dL Creatinine (0.52-1.04) mg/dL Estimated GFR ML/MIN Glucose (74-106) mg/dL Calcium (8.4-10.2) mg/dL Total Bilirubin (0.2-1.3) mg/dL AST (14-36) U/L ALT (0-35) U/L Alkaline Phosphatase (38-126) U/L Troponin I < 0.012 (0.000-0.034) ng/mL NT-Pro-B Natriuret Pep (0-900) pg/mL Serum Total Protein (6.3-8.2) g/dL Albumin (3.5-5.0) g/dL Triglycerides (30-150) mg/dL Cholesterol (50-200) mg/dL LDL Cholesterol (30-100) mg/dL HDL Cholesterol (40-60) mg/dL Heart Disease Risk Ratio Amylase 65 (30-110) U/L Lipase 77 (23-300) U/L SARS-CoV-2 (PCR) NEGATIVE (NEGATIVE) 12/03/20 12/04/20 12/04/20 Range/Units 18:31 04:50 05:00 WBC (4.0-10.5) K/mm3 RBC (4.1-5.4) M/mm3 Hgb (12.0-16.0) gm/dl Hct (35-47) % MCV (78-100) fl MCH (26-32) pg MCHC (32-36) g/dl RDW (11.5-14.0) % Plt Count (150-450) K/mm3 MPV (7.5-11.0) fl Gran % (36.0-66.0) % Eos # (Auto) (0-0.5) Absolute Lymphs (auto) (1.0-4.6) Absolute Monos (auto) (0.0-1.3) Lymphocytes % (24.0-44.0) % Monocytes % (0.0-12.0) % Eosinophils % (0.00-5.0) % Basophils % (0.0-0.4) % Absolute Granulocytes (1.4-6.9) Basophils # (0-0.4) PT (9.4-12.5) SECONDS INR (0.8-3.0) APTT (25.1-36.5) SECONDS D-Dimer (215-500) ng/mL Sodium (137-145) mmol/L Potassium (3.5-5.1) mmol/L Chloride (98-107) mmol/L Carbon Dioxide (22-30) mmol/L Anion Gap (5-15) MEQ/L BUN (7-17) mg/dL Creatinine (0.52-1.04) mg/dL Estimated GFR ML/MIN Glucose (74-106) mg/dL Calcium (8.4-10.2) mg/dL Total Bilirubin (0.2-1.3) mg/dL AST (14-36) U/L ALT (0-35) U/L Alkaline Phosphatase (38-126) U/L Troponin I < 0.012 < 0.012 (0.000-0.034) ng/mL NT-Pro-B Natriuret Pep (0-900) pg/mL Serum Total Protein (6.3-8.2) g/dL Albumin (3.5-5.0) g/dL Triglycerides 177 H (30-150) mg/dL Cholesterol 276 H (50-200) mg/dL LDL Cholesterol 171 H (30-100) mg/dL HDL Cholesterol 54 (40-60) mg/dL Heart Disease Risk Ratio 5.1 Amylase (30-110) U/L Lipase (23-300) U/L SARS-CoV-2 (PCR) (NEGATIVE) 12/04/20 12/04/20 Range/Units 10:34 10:49 WBC (4.0-10.5) K/mm3 RBC (4.1-5.4) M/mm3 Hgb (12.0-16.0) gm/dl Hct (35-47) % MCV (78-100) fl MCH (26-32) pg MCHC (32-36) g/dl RDW (11.5-14.0) % Plt Count (150-450) K/mm3 MPV (7.5-11.0) fl Gran % (36.0-66.0) % Eos # (Auto) (0-0.5) Absolute Lymphs (auto) (1.0-4.6) Absolute Monos (auto) (0.0-1.3) Lymphocytes % (24.0-44.0) % Monocytes % (0.0-12.0) % Eosinophils % (0.00-5.0) % Basophils % (0.0-0.4) % Absolute Granulocytes (1.4-6.9) Basophils # (0-0.4) PT (9.4-12.5) SECONDS INR (0.8-3.0) APTT (25.1-36.5) SECONDS D-Dimer 448 (215-500) ng/mL Sodium (137-145) mmol/L Potassium (3.5-5.1) mmol/L Chloride (98-107) mmol/L Carbon Dioxide (22-30) mmol/L Anion Gap (5-15) MEQ/L BUN (7-17) mg/dL Creatinine (0.52-1.04) mg/dL Estimated GFR ML/MIN Glucose (74-106) mg/dL Calcium (8.4-10.2) mg/dL Total Bilirubin (0.2-1.3) mg/dL AST (14-36) U/L ALT (0-35) U/L Alkaline Phosphatase (38-126) U/L Troponin I < 0.012 (0.000-0.034) ng/mL NT-Pro-B Natriuret Pep (0-900) pg/mL Serum Total Protein (6.3-8.2) g/dL Albumin (3.5-5.0) g/dL Triglycerides (30-150) mg/dL Cholesterol (50-200) mg/dL LDL Cholesterol (30-100) mg/dL HDL Cholesterol (40-60) mg/dL Heart Disease Risk Ratio Amylase (30-110) U/L Lipase (23-300) U/L SARS-CoV-2 (PCR) (NEGATIVE) - Radiology Exams Ordered Rad Exams-Entire Visit: Radiology Procedures Category Date Time Status CHEST 1 VIEW (PORTABLE) Stat Exams 12/03/20 16:25 Completed ECHO W/2D AND DOPPLER [US] Stat Exams 12/04/20 Ordered - Procedures and Test Procedures and Tests throughout Hospitalization: Therapy Orders & Screens 12/04/20 01:00 EKG ROUTINE Comment: 12/05/20 05:00 EKG ROUTINE Comment: 12/06/20 05:00 EKG ROUTINE Comment: Discharge Exam General Appearance: no apparent distress, anxiety Neurologic Exam: oriented x 3, cooperative Eye Exam: eyes nml inspection Ears, Nose, Throat Exam: moist mucous membranes Neck Exam: normal inspection, non-tender, No lymphadenopathy Respiratory Exam: normal breath sounds, lungs clear, No crackles/rales, No rhonchi, No wheezing Cardiovascular Exam: regular rate/rhythm, normal heart sounds, No murmur Gastrointestinal/Abdomen Exam: soft, normal bowel sounds, distention, No tenderness, No mass, No guarding, No rebound Back Exam: normal inspection, No rash Extremity Exam: pedal edema, swelling (trace LE edema bilat) Skin Exam: normal color, warm, dry, No rash Final Diagnosis/Problem List - Final Discharge Diagnosis/Problem (1) Chest pain Current Visit: Yes Status: Acute Assessment & Plan: Troponins negative so far; if all 5 troponins are negative, pt can be discharged to home. Needs to f/u with OP stress test (treadmill). Code(s): R07.9 - CHEST PAIN, UNSPECIFIED (2) Rib pain Current Visit: Yes Status: Acute Code(s): R07.81 - PLEURODYNIA (3) Epigastric pain Current Visit: Yes Status: Acute Code(s): R10.13 - EPIGASTRIC PAIN (4) Leg edema Current Visit: Yes Status: Acute Assessment & Plan: echo today. avoid salt. Code(s): R60.0 - LOCALIZED EDEMA (5) Abdominal bloating Current Visit: Yes Status: Acute Code(s): R14.0 - ABDOMINAL DISTENSION (GASEOUS) - Discharge Disposition: Home, Self-Care Condition: Good Prescriptions: Continue ALPRAZolam 1 MG [Xanax 1 mg] 1 mg PO 0800,1500 Olanzapine 5 mg [zyPREXA 5MG TABLET] 5 mg PO HS ALPRAZolam 1 MG [Xanax 1 mg] 2 mg PO HS Duloxetine HCl [Cymbalta] 60 mg PO HS Furosemide 20 mg [Lasix 20 mg] 20 mg PO DAILY PRN PRN PRN Reason: edema Additional Instructions: Anything with a food label may have salt/sodium in it. Your goal is 2000 mg (2g) of salt or sodium a day (or less). Things that may have more salt than is healthy include (but are not limited to:) - anything canned - any soup or broth - salad dressings - marinades - soda or other drinks - cottage cheese Forms: Patient Portal Information
[2020-12-04] MEDS ORDERED: NON-FORMULARY ITEM (Duloxetine Hcl [Cymbalta] 60 MG) PO SCH (22:00)
[2020-12-04] MEDS ORDERED: zyPREXA 5MG TABLET PO SCH (22:00)
[2020-12-04] MEDS ORDERED: Cymbalta 30 MG Capsule PO SCH (22:00)
== END 2020-12-04 14:30 | disposition home or self-care (01) ==
LOC: ED 16:20 → MED SURG 19:39
PROVIDERS: ADMIT Family Medicine; ATTEND Family Medicine
DX: R07.9 Chest pain, unspecified (principal); Z79.899 Other long term (current) drug therapy; R07.81 Pleurodynia; R10.13 Epigastric pain; R60.0 Localized edema; R14.0 Abdominal distension (gaseous); Z20.828 Contact with and (suspected) exposure to other viral communicable diseases
CPT/HCPCS: 36000; 36415; 71045; 80053; 80061; 82150; 83690; 83721; 83880; 84484; 85025; 85379; 85610; 85730; 93005; 93041; 93306; 96374; 99285; U0003; 93268; J1650; J1885; A9270-GY; G0378

== ENCOUNTER 2021-02-22 20:48 | Emergency (ER) | payer OTHER ==
[2021-02-22] MEDS ORDERED: Sodium Chloride 0.9% 1000 ML 1,000 ML IV STA (21:14)
[2021-02-22] MEDS ORDERED: Ativan 1 MG PO ONE (21:14)
--- NOTE | 2021-02-22 21:21 | ERPHSYRPT ---
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 She had numbness in the fingertips. Patient also reports having mild chest pain earlier which is improved with associated nausea but no vomiting. Patient is very anxious and cannot sit still and this is been going on since she was at home. Denies any focal numbness tingling or weakness. Headache is minimal dull aching. Denies any visual disturbance or difficulty speech. She took her medication Cymbalta and Xanax and feeling mild improvement. Timing/Duration: hour(s) (2), constant, sudden, improved Severity: moderate Modifying Factors: Improves With: rest Associated Symptoms: nausea, shortness of breath, chest pain, headaches, weakness, No vomiting, No abdominal pain Allergies/Adverse Reactions: Penicillins Allergy (Unknown, Verified 02/22/21 20:57) morphine Adverse Reaction (Verified 02/22/21 20:57) vomiting Home Medications: ALPRAZolam 1 MG [Xanax 1 mg] 1 mg PO 0800,1500 05/31/15 [History] Olanzapine 5 mg [zyPREXA 5MG TABLET] 5 mg PO HS 07/31/20 [History] ALPRAZolam 1 MG [Xanax 1 mg] 2 mg PO HS 08/05/20 [History] Duloxetine HCl [Cymbalta] 60 mg PO HS 08/05/20 [History] Furosemide 20 mg [Lasix 20 mg] 20 mg PO DAILY PRN PRN 12/04/20 [History] Hx Tetanus, Diphtheria Vaccination/Date Given: Yes Hx Influenza Vaccination/Date Given: No Hx Pneumococcal Vaccination/Date Given: No Travel Risk - International Travel Have you traveled outside of the country in past 3 weeks: No - Coronavirus Screening Are you exhibiting any of the following symptoms?: No Close contact with a COVID-19 positive Pt in past 14-21 Days: No - Vaccine Status Have you recieved a Covid-19 vaccination: No - Review of Systems Constitutional: Fatigue Eyes: No Symptoms Ears, Nose, & Throat: No Symptoms Respiratory: Dyspnea Cardiac: Chest Pain, Palpitations Abdominal/Gastrointestinal: Nausea Genitourinary Symptoms: No Symptoms Musculoskeletal: No Symptoms Skin: No Symptoms Neurological: Dizziness, Headache Psychological: Anxiety, Depression Endocrine: No Symptoms Hematologic/Lymphatic: No Symptoms Immunological/Allergic: No Symptoms - Past Medical History Pertinent Past Medical History: Yes Neurological History: No Pertinent History ENT History: No Pertinent History Cardiac History: Myocardial Infarction (HI), Other Respiratory History: No Pertinent History Endocrine Medical History: No Pertinent History Musculoskeletal History: No Pertinent History GI Medical History: No Pertinent History History: No Pertinent History Psycho-Social History: Anxiety, Depression Female Reproductive Disorders: No Pertinent History Other Medical History: possible HI, pt unsure - 2014, regurgitating valve, con stant leg pain - Past Surgical History Past Surgical History: Yes Neuro Surgical History: No Pertinent History Cardiac: No Pertinent History Respiratory: No Pertinent History Gastrointestinal: No Pertinent History Genitourinary: No Pertinent History Musculoskeletal: No Pertinent History Female Surgical History: Section Other Surgical History: ovarian cyst removed at age 20 - Social History Smoking Status: Never smoker Exposure to second hand smoke: Yes Drug Use: none Patient Lives Alone: Yes Significant Family History: no pertinent family hx - Nursing Vital Signs Nursing Vital Signs: Initial Vital Signs Temperature 97.5 F 02/22/21 20:58 Pulse Rate 114 H 02/22/21 20:58 Respiratory Rate 18 02/22/21 20:58 Blood Pressure 130/95 02/22/21 20:58 O2 Sat by Pulse Oximetry 98 02/22/21 20:58 Pain Scale Pain Intensity 0 - Physical Exam General Appearance: no apparent distress, alert, anxiety Eye Exam: PERRL/EOMI, eyes nml inspection Ears, Nose, Throat Exam: normal ENT inspection, TMs normal, pharynx normal, moist mucous membranes Neck Exam: normal inspection, non-tender, supple, full range of motion Respiratory Exam: normal breath sounds, lungs clear Cardiovascular Exam: normal heart sounds, tachycardia Gastrointestinal/Abdomen Exam: soft, normal bowel sounds, No tenderness Back Exam: normal inspection, normal range of motion Extremity Exam: normal inspection, normal range of motion Neurologic Exam: alert, oriented x 3, cooperative, portfolio manager II-XII nml as tested, nml cerebellar function, sensation nml, No normal mood/affect (Anxious), No nml station & gait, No motor deficits Skin Exam: normal color SpO2 Interpretation: normal SpO2: 98 O2 Delivery: Room Air - Course EKG Interpreted by Me: RATE (105), Sinus Tach, NORMAL AXIS, NORMAL INTERVALS, Non-specific ST Changes Ordered Tests: Active Orders 24 hr Category Date Time Status EKG-ER Only STAT Care 02/22/21 21:14 Active IV Insertion STAT Care 02/22/21 21:14 Active CHEST 1 VIEW (PORTABLE) Stat Exams 02/22/21 21:13 Taken HEAD WITHOUT CONTRAST [CT] Stat Exams 02/22/21 21:18 Taken CBC W DIFF Stat Lab 02/22/21 21:31 Completed CMP Stat Lab 02/22/21 21:31 Completed MAGNESIUM Stat Lab 02/22/21 21:31 Completed TROPONIN Q3H Lab 02/22/21 21:31 Completed TROPONIN Q3H Lab 02/23/21 03:15 Ordered TROPONIN Q3H Lab 02/23/21 06:15 Ordered TROPONIN Q3H Lab 02/23/21 09:15 Ordered TROPONIN Stat Lab 02/22/21 23:42 Completed UA W/RFX UR CULTURE Stat Lab 02/22/21 21:29 Completed Urine Triage Profile Stat Lab 02/22/21 21:31 Completed Medication Summary Discontinued Medications Generic Name Dose Route Start Last Admin Trade Name Freq PRN Reason Stop Dose Admin Sodium Chloride 1,000 mls @ 999 mls/hr 02/22/21 21:14 02/22/21 22:49 Sodium Chloride 0.9% 1000 Ml IV 02/22/21 22:14 Infused .Q1H1M STA Infusion Sodium Chloride Confirm 02/22/21 21:36 Sodium Chloride 0.9% 1000 Ml Administered 02/22/21 21:37 Dose 1,000 mls @ ud .ROUTE .STK-MED ONE Lorazepam 1 mg 02/22/21 21:14 02/22/21 21:48 Ativan 1 Mg PO 02/22/21 21:15 1 mg STAT ONE Administration Lorazepam Confirm 02/22/21 21:36 Ativan 1 Mg Administered 02/22/21 21:37 Dose 1 mg .ROUTE .STK-MED ONE Lorazepam Confirm 02/22/21 22:39 Ativan 2 Mg/1 Ml Vial Administered 02/22/21 22:40 Dose 2 mg .ROUTE .STK-MED ONE Lorazepam 1 mg 02/22/21 22:58 02/22/21 23:00 Ativan 2 Mg/1 Ml Vial IV 02/22/21 22:59 1 mg STAT ONE Administration Ondansetron HCl 4 mg 02/22/21 21:30 02/22/21 21:48 Zofran 4 Mg/2 Ml Vial IV 02/22/21 21:31 4 mg STAT ONE Administration Ondansetron HCl Confirm 02/22/21 21:36 Zofran 4 Mg/2 Ml Vial Administered 02/22/21 21:37 Dose 4 mg .ROUTE .STK-MED ONE Lab/Rad Data: Laboratory Result Diagrams 02/22/21 21:31 02/22/21 21:31 Laboratory Results 02/22/21 02/22/21 02/22/21 Range/Units 23:42 21:31 21:31 WBC (4.0-10.5) K/mm3 RBC (4.1-5.4) M/mm3 Hgb (12.0-16.0) gm/dl Hct (35-47) % MCV (78-100) fl MCH (26-32) pg MCHC (32-36) g/dl RDW (11.5-14.0) % Plt Count (150-450) K/mm3 MPV (7.5-11.0) fl Gran % (36.0-66.0) % Eos # (Auto) (0-0.5) Absolute Lymphs (auto) (1.0-4.6) Absolute Monos (auto) (0.0-1.3) Lymphocytes % (24.0-44.0) % Monocytes % (0.0-12.0) % Eosinophils % (0.00-5.0) % Basophils % (0.0-0.4) % Absolute Granulocytes (1.4-6.9) Basophils # (0-0.4) Sodium (137-145) mmol/L Potassium (3.5-5.1) mmol/L Chloride (98-107) mmol/L Carbon Dioxide (22-30) mmol/L Anion Gap (5-15) MEQ/L BUN (7-17) mg/dL Creatinine (0.52-1.04) mg/dL Estimated GFR ML/MIN Glucose (74-106) mg/dL Calcium (8.4-10.2) mg/dL Magnesium (1.6-2.3) mg/dL Total Bilirubin (0.2-1.3) mg/dL AST (14-36) U/L ALT (0-35) U/L Alkaline Phosphatase (38-126) U/L Troponin I < 0.012 < 0.012 (0.000-0.034) ng/mL Serum Total Protein (6.3-8.2) g/dL Albumin (3.5-5.0) g/dL Urine Color (YELLOW) Urine Appearance (CLEAR) Urine pH (5-6) Ur Specific [place] (1.005-1.025) Urine Protein (Negative) Urine Ketones (NEGATIVE) Urine Blood (0-5) [place] Urine Nitrite (NEGATIVE) Urine Bilirubin (NEGATIVE) Urine Urobilinogen (0-1) mg/dL Ur Leukocyte Esterase (NEGATIVE) Urine WBC (Auto) (0-5) /HPF Urine RBC (Auto) (0-2) /HPF U Epithel Cells (Auto) (FEW) /HPF Urine Bacteria (Auto) (NEGATIVE) /HPF Urine Mucus (Auto) (NEGATIVE) /HPF Urine Culture Reflexed (NO) Urine Glucose (NEGATIVE) mg/dL Urine Opiates Level NEGATIVE (NEGATIVE) Ur Methadone NEGATIVE (NEGATIVE) Urine Barbiturates NEGATIVE (NEGATIVE) Ur Phencyclidine (PCP) NEGATIVE (NEGATIVE) Urine Amphetamine NEGATIVE (NEGATIVE) U Benzodiazepine Level POSITIVE (NEGATIVE) Urine Cocaine NEGATIVE (NEGATIVE) Urine Marijuana (THC) NEGATIVE (NEGATIVE) 02/22/21 02/22/21 02/22/21 Range/Units 21:31 21:31 21:29 WBC 8.2 (4.0-10.5) K/mm3 RBC 4.67 (4.1-5.4) M/mm3 Hgb 14.0 (12.0-16.0) gm/dl Hct 43.2 (35-47) % MCV 92.5 (78-100) fl MCH 30.0 (26-32) pg MCHC 32.4 (32-36) g/dl RDW 12.9 (11.5-14.0) % Plt Count 343 (150-450) K/mm3 MPV 9.6 (7.5-11.0) fl Gran % 48.6 (36.0-66.0) % Eos # (Auto) 0.12 (0-0.5) Absolute Lymphs (auto) 3.26 (1.0-4.6) Absolute Monos (auto) 0.79 (0.0-1.3) Lymphocytes % 40.0 (24.0-44.0) % Monocytes % 9.7 (0.0-12.0) % Eosinophils % 1.5 (0.00-5.0) % Basophils % 0.2 (0.0-0.4) % Absolute Granulocytes 3.96 (1.4-6.9) Basophils # 0.02 (0-0.4) Sodium 140 (137-145) mmol/L Potassium 3.6 (3.5-5.1) mmol/L Chloride 109 H (98-107) mmol/L Carbon Dioxide 21 L (22-30) mmol/L Anion Gap 13.6 (5-15) MEQ/L BUN 15 (7-17) mg/dL Creatinine 0.89 (0.52-1.04) mg/dL Estimated GFR > 60.0 ML/MIN Glucose 106 (74-106) mg/dL Calcium 9.8 (8.4-10.2) mg/dL Magnesium 1.9 (1.6-2.3) mg/dL Total Bilirubin 0.50 (0.2-1.3) mg/dL AST 22 (14-36) U/L ALT 18 (0-35) U/L Alkaline Phosphatase 112 (38-126) U/L Troponin I (0.000-0.034) ng/mL Serum Total Protein 8.2 (6.3-8.2) g/dL Albumin 4.4 (3.5-5.0) g/dL Urine Color YELLOW (YELLOW) Urine Appearance CLEAR (CLEAR) Urine pH 5.0 (5-6) Ur Specific [place] 1.019 (1.005-1.025) Urine Protein NEGATIVE (Negative) Urine Ketones NEGATIVE (NEGATIVE) Urine Blood NEGATIVE (0-5) [place] Urine Nitrite NEGATIVE (NEGATIVE) Urine Bilirubin NEGATIVE (NEGATIVE) Urine Urobilinogen NEGATIVE (0-1) mg/dL Ur Leukocyte Esterase NEGATIVE (NEGATIVE) Urine WBC (Auto) 0-2 (0-5) /HPF Urine RBC (Auto) NONE (0-2) /HPF U Epithel Cells (Auto) RARE (FEW) /HPF Urine Bacteria (Auto) RARE (NEGATIVE) /HPF Urine Mucus (Auto) SLIGHT (NEGATIVE) /HPF Urine Culture Reflexed NO (NO) Urine Glucose NEGATIVE (NEGATIVE) mg/dL Urine Opiates Level (NEGATIVE) Ur Methadone (NEGATIVE) Urine Barbiturates (NEGATIVE) Ur Phencyclidine (PCP) (NEGATIVE) Urine Amphetamine (NEGATIVE) U Benzodiazepine Level (NEGATIVE) Urine Cocaine (NEGATIVE) Urine Marijuana (THC) (NEGATIVE) - Progress Progress: improved Progress Note: 02/23/21 00:13 55 years old is evaluated for anxiety/panic attack symptoms with some dizziness and feeling restless. She has a nonfocal neuro exam. I have obtained CT head which is negative EKG showed normal sinus rhythm without any ST elevation and negative troponins x2. Grossly unremarkable work-up otherwise including chest x-ray reviewed by me with official report pending. She is given Ativan, on reevaluation feeling better and her dizziness and anxiety symptoms are improved. I do not think she has ACS but more of anxiety. She is advised to follow-up with her primary care. Discussed signs symptoms of worsening needing return to ER which she seems understanding. Stable for discharge. 02/23/21 00:15 Counseled pt/family regarding: lab results, diagnosis, need for follow-up, anurag jose - Departure Departure Disposition: Home Clinical Impression: Panic attack Condition: Stable Critical Care Time: No Referrals: JENNI IRBY [Primary Care Provider] - (1-2 days for reevaluation) Instructions: Vertigo (a Type of Dizziness) (DC), Anxiety, Adult (DC) Additional Instructions: Continue with your current medications. Follow-up with your primary care for reevaluation. Return to ER if he did have palpitations/shortness of breath/chest pain etc.
[2021-02-22] MEDS ORDERED: Zofran 4 MG/2 ML VIAL IV ONE (21:30)
[2021-02-22 21:35] LABS: Absolute Neutrophil Ct (ANC) 3.96 (1.4-6.9); BASOPHIL % 0.2 % (0.0-0.4); Basophil (Absolute #) 0.02 (0-0.4); Eosinophil % 1.5 % (0.00-5.0); Eosinophil (Absolute #) 0.12 (0-0.5); Hematocrit 43.2 % (35-47); Lymphocyte (Absolute #) 3.26 (1.0-4.6); Mean Cell Volume 92.5 fl (78-100); Mean Corpuscular Hgb Concent. 32.4 g/dl (32-36); Mean Platelet Volume 9.6 fl (7.5-11.0); Monocyte (Absolute #) 0.79 (0.0-1.3); Monocytes % 9.7 % (0.0-12.0); Neutrophil % 48.6 % (36.0-66.0); Platelet Count 343 K/mm3 (150-450); Red Blood Count 4.67 M/mm3 (4.1-5.4); Red Cell Distribution Width 12.9 % (11.5-14.0); White Blood Count 8.2 K/mm3 (4.0-10.5)
[2021-02-22] MEDS ORDERED: Ativan 1 MG ONE (21:36)
[2021-02-22] MEDS ORDERED: Sodium Chloride 0.9% 1000 ML 1,000 ML ONE (21:36)
[2021-02-22] MEDS ORDERED: Zofran 4 MG/2 ML VIAL ONE (21:36)
[2021-02-22 21:42] LABS: Appearance CLEAR (CLEAR); Bacteria RARE /HPF (NEGATIVE); Bilirubin NEGATIVE (NEGATIVE); Blood NEGATIVE Ery/ul (0-5); Epithelial Cells RARE /HPF (FEW); Glucose NEGATIVE (NEGATIVE); Ketones NEGATIVE (NEGATIVE); Leukocyte Esterase NEGATIVE (NEGATIVE); Mucus SLIGHT /HPF (NEGATIVE); Nitrite NEGATIVE (NEGATIVE); Protein,Urine Dip NEGATIVE (Negative); Specific Gravity 1.019 (1.005-1.025); Urobilinogen NEGATIVE mg/dL (0-1); WBC 0-2 /HPF (0-5)
[2021-02-22 21:45] LABS: ALBUMIN 4.4 g/dL (3.5-5.0); ALKALINE PHOSPHATASE 112 U/L (38-126); ANION GAP 13.6 MEQ/L (5-15); BLOOD UREA NITROGEN 15 mg/dL (7-17); CHLORIDE 109 mmol/L (98-107); Calcium 9.8 mg/dL (8.4-10.2); Carbon Dioxide 21 mmol/L (22-30); Creatinine 1 0.89 mg/dL (0.52-1.04); EST GLOMERULAR FILTRATION RATE > 60.0 ML/MIN; Glucose 106 mg/dL (74-106); MAGNESIUM 1.9 mg/dL (1.6-2.3); Potassium 3.6 mmol/L (3.5-5.1); SGOT/AST 22 U/L (14-36); SGPT/ALT 18 U/L (0-35); SODIUM 140 mmol/L (137-145); Total Protein 8.2 g/dL (6.3-8.2)
[2021-02-22 21:52] LABS: Amphetamine,Urine NEGATIVE (NEGATIVE); Barbiturate,Urine NEGATIVE (NEGATIVE); Benzodiazepine,Urine POSITIVE (NEGATIVE); Cocaine,Urine NEGATIVE (NEGATIVE); Methadone,Urine NEGATIVE (NEGATIVE); Opiate,Urine NEGATIVE (NEGATIVE); PCP,Urine NEGATIVE (NEGATIVE); THC,Urine NEGATIVE (NEGATIVE)
[2021-02-22] MEDS ORDERED: Ativan 2 MG/1 ML VIAL ONE (22:39)
[2021-02-22] MEDS ORDERED: Ativan 2 MG/1 ML VIAL IV ONE (22:58)
[2021-02-23 00:21] VITALS: BP 113/76; PULSE 87; O2SAT 97
--- NOTE | 2021-02-23 08:43 | XRAY ---
Indication: Dizziness. Multiple contiguous axial images obtained through the head without contrast. Comparison: May 17, 2020. Normal appearing brain parenchyma, ventricles, and bony calvarium. Visualized paranasal sinuses and mastoid air cells are clear. Impression: Continued normal CT head without contrast exam. Comment: Preliminary interpretation made by [facility]. No critical discrepancy.
--- NOTE | 2021-02-23 08:43 | XRAY ---
Indication: Short of breath. Comparison: December 03, 2020. Portable chest demonstrates new minimal left base fibrosis/scarring. Remaining heart and lungs unremarkable again with incidental tiny calcified granulomas. Bony thorax intact.
== END 2021-02-23 00:34 | disposition home or self-care (01) ==
LOC: ED 20:48
DX: F41.0 Panic disorder [episodic paroxysmal anxiety] (principal); R42 Dizziness and giddiness; R06.02 Shortness of breath; R51.9 Headache, unspecified; R26.2 Difficulty in walking, not elsewhere classified; R11.0 Nausea; R07.9 Chest pain, unspecified; R53.83 Other fatigue; Z79.899 Other long term (current) drug therapy; I25.2 Old myocardial infarction
CPT/HCPCS: 36000; 36415; 70450; 71045; 80053; 80307; 81001; 83735; 84484; 85025; 93005; 96360; 96374; 99284; J2060; J2405; A9270-GY

== ENCOUNTER 2021-08-06 13:29 | Emergency (ER) | payer OTHER ==
[2021-08-06] MEDS ORDERED: Sodium Chloride 0.9% 1000 ML 1,000 ML IV STA ×2 (14:06→16:07)
[2021-08-06] MEDS ORDERED: xanAX 0.5 MG PO ONE ×2 (14:06→19:17)
[2021-08-06] MEDS ORDERED: Sodium Chloride 0.9% 1000 ML 1,000 ML ONE ×2 (14:09→16:15)
[2021-08-06] MEDS ORDERED: xanAX 0.5 MG ONE ×2 (14:09→19:24)
--- NOTE | 2021-08-06 14:13 | ERPHSYRPT ---
- History of Present Illness Time Seen by Provider: 08/06/21 13:45 Source: patient Exam Limitations: no limitations Patient Subjective Stated Complaint: Confusion Triage Nursing Assessment: Patient ambulated back to ED and transferred self to bed. Patient A+O X3. Patient's skin flushed, cool and diaphoretic. Patient states she started thinking she had a loose magnet in her back and was paranoid and hallucinating. Patient states she woke up today and thought someone was trying to break in to her home and she called 911. Patient has erratic mov ements. Patient denies pain or discomfort. Patient states she has been without her Xanax for one week. Physician History: Patient is a 55-year-old female presents to our ED because per patient "I think I am going crazy". Patient states that she has been feeling paranoid and jittery. Patient admits to hallucinating. She recently thought somebody was breaking into her home and called 911. Patient states she has been having weird dreams. Patient has a history of depression. Patient was started on Xanax approximately 8 years ago by a doctor in [place]. Patient reportedly moved back to [place] and started seeing Dr. Elias. Patient states that Dr. Elias prescribed her Xanax. Patient states that she lost her Xanax bottle approximately 3 weeks ago. Patient has not taken her Xanax in about 3 weeks. Patient's Xanax regimen is 1 mg twice a day. Patient denies pain. No chest pain or shortness of breath. No nausea vomiting or diaphoresis. Patient symptoms have been ongoing for the past couple days. Patient otherwise feels well. No chest pain or shortness of breath. No nausea vomiting or diaphoresis. Patient voices no other complaints or concerns at this time. Timing/Duration: day(s) (2 days) Severity: moderate Modifying Factors: Improves With: nothing Associated Symptoms: No nausea, No vomiting, No abdominal pain, No diaphoresis, No cough, No headaches, No syncope, No seizure, No weakness Allergies/Adverse Reactions: Penicillins Allergy (Unknown, Verified 08/06/21 13:38) morphine Adverse Reaction (Verified 08/06/21 13:38) vomiting Home Medications: ALPRAZolam 1 MG [Xanax 1 mg] 1 mg PO 0800,1500 05/31/15 [History] ALPRAZolam 1 MG [Xanax 1 mg] 2 mg PO HS 08/05/20 [History] Duloxetine HCl [Cymbalta] 60 mg PO HS 08/05/20 [History] Hx Tetanus, Diphtheria Vaccination/Date Given: Yes Hx Influenza Vaccination/Date Given: No Hx Pneumococcal Vaccination/Date Given: No Immunizations Up to Date: Yes Travel Risk - International Travel Have you traveled outside of the country in past 3 weeks: No - Coronavirus Screening Are you exhibiting any of the following symptoms?: No Close contact with a COVID-19 positive Pt in past 14-21 Days: No - Vaccine Status Have you recieved a Covid-19 vaccination: No - Review of Systems Constitutional: No Symptoms, No Fever, No Chills Eyes: No Symptoms Ears, Nose, & Throat: No Symptoms Respiratory: No Symptoms, No Cough, No Dyspnea Cardiac: No Symptoms, No Chest Pain, No Edema, No Syncope Abdominal/Gastrointestinal: No Symptoms, No Abdominal Pain, No Nausea, No Vomiting, No Diarrhea Genitourinary Symptoms: No Symptoms, No Dysuria Musculoskeletal: No Symptoms, No Back Pain, No Neck Pain Skin: No Symptoms, No Rash Neurological: No Symptoms, No Dizziness, No Focal Weakness, No Sensory Changes Psychological: No Symptoms Endocrine: No Symptoms Hematologic/Lymphatic: No Symptoms Immunological/Allergic: No Symptoms All Other Systems: Reviewed and Negative - Past Medical History Pertinent Past Medical History: Yes Neurological History: No Pertinent History ENT History: No Pertinent History Cardiac History: Myocardial Infarction ([place]), Other Respiratory History: No Pertinent History Endocrine Medical History: No Pertinent History Musculoskeletal History: No Pertinent History GI Medical History: No Pertinent History History: No Pertinent History Psycho-Social History: Anxiety, Depression Female Reproductive Disorders: No Pertinent History Other Medical History: possible [place], pt unsure - 2015, regurgitating valve, constant leg pain - Past Surgical History Past Surgical History: Yes Neuro Surgical History: No Pertinent History Cardiac: No Pertinent History Respiratory: No Pertinent History Gastrointestinal: No Pertinent History Genitourinary: No Pertinent History Musculoskeletal: No Pertinent History Female Surgical History: Section Other Surgical History: ovarian cyst removed at age 20 - Social History Smoking Status: Never smoker Exposure to second hand smoke: Yes Drug Use: none Patient Lives Alone: No Significant Family History: no pertinent family hx - Nursing Vital Signs Nursing Vital Signs: Initial Vital Signs Pulse Rate 112 H 08/06/21 13:40 Respiratory Rate 18 08/06/21 13:40 Blood Pressure 173/96 08/06/21 13:40 O2 Sat by Pulse Oximetry 98 08/06/21 13:40 Pain Scale Pain Intensity 0 - Physical Exam General Appearance: no apparent distress, alert, other (Patient sitting in bed. Patient is jittery. Patient's arms and legs are shaking. Pressured speech.) Eye Exam: PERRL/EOMI, eyes nml inspection Ears, Nose, Throat Exam: normal ENT inspection, TMs normal, pharynx normal, moist mucous membranes Neck Exam: normal inspection, non-tender, supple, full range of motion Respiratory Exam: normal breath sounds, lungs clear, airway intact, No respiratory distress Cardiovascular Exam: regular rate/rhythm, normal heart sounds, normal peripheral pulses Gastrointestinal/Abdomen Exam: soft, normal bowel sounds, No tenderness, No mass Back Exam: normal inspection, normal range of motion, No CVA tenderness, No vertebral tenderness Extremity Exam: normal inspection, normal range of motion, pelvis stable Neurologic Exam: alert, oriented x 3, cooperative, international trade compliance manager II-XII nml as tested, normal mood/affect, nml cerebellar function, nml station & gait, sensation nml, No motor deficits Skin Exam: normal color, warm, dry, No rash Lymphatic Exam: No adenopathy SpO2 Interpretation: normal SpO2: 98 O2 Delivery: Room Air - Course Nursing assessment & vital signs reviewed: Yes EKG Interpreted by Me: RATE (104), Sinus Rhythm, Sinus Tach, NORMAL AXIS, NORMAL INTERVALS - CT Exams Head CT Interpretation: Tele-radiologist Report (Continued normal CT head without contrast exam.) Ordered Tests: Active Orders 24 hr Category Date Time Status Front Office Assistant STAT Care 08/06/21 14:06 Active EKG-ER Only STAT Care 08/06/21 14:19 Active IV Insertion STAT Care 08/06/21 14:06 Active POCT Glucose Check STAT Care 08/06/21 13:45 Active HEAD WITHOUT CONTRAST [CT] Stat Exams 08/06/21 14:18 Completed ACETAMINOPHEN Stat Lab 08/06/21 13:40 Completed CBC W DIFF Stat Lab 08/06/21 13:40 Completed CMP Stat Lab 08/06/21 13:40 Completed CMP Stat Lab 08/06/21 17:30 Completed CULTURE,URINE Stat Lab 08/06/21 16:18 Received ETHYL ALCOHOL Stat Lab 08/06/21 13:40 Completed HCG,QUALITATIVE URINE Stat Lab 08/06/21 16:18 Completed POCT GLUCOSE Stat Lab 08/06/21 13:40 Completed SALICYLATE Stat Lab 08/06/21 13:40 Completed TSH [TSH, 3RD Generation] Stat Lab 08/06/21 13:40 Completed UA W/RFX UR CULTURE Stat Lab 08/06/21 16:18 Completed Urine Triage Profile Stat Lab 08/06/21 16:18 Completed Medication Summary Discontinued Medications Generic Name Dose Route Start Last Admin Trade Name Poolq PRN Reason Stop Dose Admin Alprazolam 1 mg 08/06/21 14:06 08/06/21 14:11 Alprazolam 0.5 Mg Tablet PO 08/06/21 14:07 1 mg STAT ONE Administration Alprazolam Confirm 08/06/21 14:09 Alprazolam 0.5 Mg Tablet Administered 08/06/21 14:10 Dose 1 mg .ROUTE .STK-MED ONE Sodium Chloride 1,000 mls @ 999 mls/hr 08/06/21 14:06 08/06/21 15:34 Sodium Chloride 0.9% 1000 Ml IV 08/06/21 15:06 Infused .Q1H1M STA Infusion Sodium Chloride Confirm 08/06/21 14:09 Sodium Chloride 0.9% 1000 Ml Administered 08/06/21 14:10 Dose 1,000 mls @ ud .ROUTE .STK-MED ONE Sodium Chloride 1,000 mls @ 999 mls/hr 08/06/21 16:07 08/06/21 17:17 Sodium Chloride 0.9% 1000 Ml IV 08/06/21 17:07 Infused .Q1H1M STA Infusion Sodium Chloride Confirm 08/06/21 16:15 Sodium Chloride 0.9% 1000 Ml Administered 08/06/21 16:16 Dose 1,000 mls @ ud .ROUTE .STK-MED ONE Ceftriaxone Sodium/Dextrose 1 g in 50 mls @ 100 mls/hr 08/06/21 17:03 08/06/21 17:39 Rocephin 1 Gm-D5w 50 Ml Bag IV 08/06/21 17:32 Infused STAT STA Infusion Ceftriaxone Sodium/Dextrose Confirm 08/06/21 17:03 Rocephin 1 Gm-D5w 50 Ml Bag Administered 08/06/21 17:04 Dose 1 g in 50 mls @ ud IV .STK-MED ONE Lab/Rad Data: Laboratory Result Diagrams 08/06/21 13:40 08/06/21 17:30 Laboratory Results 08/06/21 08/06/21 08/06/21 Range/Units 17:30 16:18 16:18 WBC (4.0-10.5) K/mm3 RBC (4.1-5.4) M/mm3 Hgb (12.0-16.0) gm/dl Hct (35-47) % MCV (78-100) fl MCH (26-32) pg MCHC (32-36) g/dl RDW (11.5-14.0) % Plt Count (150-450) K/mm3 MPV (7.5-11.0) fl Gran % (36.0-66.0) % Eos # (Auto) (0-0.5) Absolute Lymphs (auto) (1.0-4.6) Absolute Monos (auto) (0.0-1.3) Lymphocytes % (24.0-44.0) % Monocytes % (0.0-12.0) % Eosinophils % (0.00-5.0) % Basophils % (0.0-0.4) % Absolute Granulocytes (1.4-6.9) Basophils # (0-0.4) Sodium 137 (137-145) mmol/L Potassium 4.6 (3.5-5.1) mmol/L Chloride 108 H (98-107) mmol/L Carbon Dioxide 20 L (22-30) mmol/L Anion Gap 13.5 (5-15) MEQ/L BUN 28 H (7-17) mg/dL Creatinine 0.95 (0.52-1.04) mg/dL Estimated GFR > 60.0 ML/MIN Glucose 119 H (74-106) mg/dL POC Glucometer (74 to 106) mg/dL Calcium 9.3 D (8.4-10.2) mg/dL Total Bilirubin 1.10 (0.2-1.3) mg/dL AST 24 (14-36) U/L ALT 16 (0-35) U/L Alkaline Phosphatase 110 (38-126) U/L Serum Total Protein 7.4 (6.3-8.2) g/dL Albumin 4.1 (3.5-5.0) g/dL TSH 3rd Generation (0.47-4.68) mIU/L Urine Color (YELLOW) Urine Appearance (CLEAR) Urine pH (5-6) Ur Specific [place] (1.005-1.025) Urine Protein (Negative) Urine Ketones (NEGATIVE) Urine Blood (0-5) Issac/ul Urine Nitrite (NEGATIVE) Urine Bilirubin (NEGATIVE) Urine Urobilinogen (0-1) mg/dL Ur Leukocyte Esterase (NEGATIVE) Urine WBC (Auto) (0-5) /HPF Urine RBC (Auto) (0-2) /HPF U Hyaline Cast (Auto) (0-2) /LPF U Epithel Cells (Auto) (FEW) /HPF Urine Bacteria (Auto) (NEGATIVE) /HPF Urine Mucus (Auto) (NEGATIVE) /HPF Urine Culture Reflexed (NO) Urine Glucose (NEGATIVE) mg/dL Urine HCG, Qual NEGATIVE (Negative) Salicylates (2-20) mg/dL Urine Opiates Level NEGATIVE (NEGATIVE) Ur Methadone NEGATIVE (NEGATIVE) Acetaminophen (10-30) ug/ml Urine Barbiturates NEGATIVE (NEGATIVE) Ur Phencyclidine (PCP) NEGATIVE (NEGATIVE) Urine Amphetamine NEGATIVE (NEGATIVE) U Benzodiazepine Level POSITIVE (NEGATIVE) Urine Cocaine NEGATIVE (NEGATIVE) Urine Marijuana (THC) NEGATIVE (NEGATIVE) Ethyl Alcohol (0-10) mg/dL 08/06/21 08/06/21 08/06/21 Range/Units 16:18 13:40 13:40 WBC (4.0-10.5) K/mm3 RBC (4.1-5.4) M/mm3 Hgb (12.0-16.0) gm/dl Hct (35-47) % MCV (78-100) fl MCH (26-32) pg MCHC (32-36) g/dl RDW (11.5-14.0) % Plt Count (150-450) K/mm3 MPV (7.5-11.0) fl Gran % (36.0-66.0) % Eos # (Auto) (0-0.5) Absolute Lymphs (auto) (1.0-4.6) Absolute Monos (auto) (0.0-1.3) Lymphocytes % (24.0-44.0) % Monocytes % (0.0-12.0) % Eosinophils % (0.00-5.0) % Basophils % (0.0-0.4) % Absolute Granulocytes (1.4-6.9) Basophils # (0-0.4) Sodium 137 (137-145) mmol/L Potassium 4.8 (3.5-5.1) mmol/L Chloride 101 (98-107) mmol/L Carbon Dioxide 18 L (22-30) mmol/L Anion Gap 22.9 H (5-15) MEQ/L BUN 31 H (7-17) mg/dL Creatinine 1.32 H (0.52-1.04) mg/dL Estimated GFR 44.7 ML/MIN Glucose 121 H (74-106) mg/dL POC Glucometer (74 to 106) mg/dL Calcium 11.5 H (8.4-10.2) mg/dL Total Bilirubin 1.40 H (0.2-1.3) mg/dL AST 30 (14-36) U/L ALT 23 (0-35) U/L Alkaline Phosphatase 150 H (38-126) U/L Serum Total Protein 9.4 H (6.3-8.2) g/dL Albumin 5.3 H (3.5-5.0) g/dL TSH 3rd Generation 1.210 (0.47-4.68) mIU/L Urine Color YELLOW (YELLOW) Urine Appearance SLIGHTLY CLOUDY (CLEAR) Urine pH 5.0 (5-6) Ur Specific [place] 1.018 (1.005-1.025) Urine Protein 30 (Negative) Urine Ketones SMALL (NEGATIVE) Urine Blood SMALL (0-5) Issac/ul Urine Nitrite NEGATIVE (NEGATIVE) Urine Bilirubin NEGATIVE (NEGATIVE) Urine Urobilinogen NEGATIVE (0-1) mg/dL Ur Leukocyte Esterase SMALL (NEGATIVE) Urine WBC (Auto) 11-15 (0-5) /HPF Urine RBC (Auto) 0-2 (0-2) /HPF U Hyaline Cast (Auto) 11-25 (0-2) /LPF U Epithel Cells (Auto) FEW (FEW) /HPF Urine Bacteria (Auto) MODERATE (NEGATIVE) /HPF Urine Mucus (Auto) SLIGHT (NEGATIVE) /HPF Urine Culture Reflexed YES (NO) Urine Glucose NEGATIVE (NEGATIVE) mg/dL Urine HCG, Qual (Negative) Salicylates < 1.0 L (2-20) mg/dL Urine Opiates Level (NEGATIVE) Ur Methadone (NEGATIVE) Acetaminophen < 10 L (10-30) ug/ml Urine Barbiturates (NEGATIVE) Ur Phencyclidine (PCP) (NEGATIVE) Urine Amphetamine (NEGATIVE) U Benzodiazepine Level (NEGATIVE) Urine Cocaine (NEGATIVE) Urine Marijuana (THC) (NEGATIVE) Ethyl Alcohol < 10 (0-10) mg/dL 08/06/21 08/06/21 Range/Units 13:40 13:40 WBC 14.5 H (4.0-10.5) K/mm3 RBC 4.62 (4.1-5.4) M/mm3 Hgb 14.3 (12.0-16.0) gm/dl Hct 44.1 (35-47) % MCV 95.5 (78-100) fl MCH 31.0 (26-32) pg MCHC 32.4 (32-36) g/dl RDW 12.7 (11.5-14.0) % Plt Count 426 (150-450) K/mm3 MPV 10.1 (7.5-11.0) fl Gran % 65.8 (36.0-66.0) % Eos # (Auto) 0.05 (0-0.5) Absolute Lymphs (auto) 3.65 (1.0-4.6) Absolute Monos (auto) 1.23 (0.0-1.3) Lymphocytes % 25.1 (24.0-44.0) % Monocytes % 8.5 (0.0-12.0) % Eosinophils % 0.3 (0.00-5.0) % Basophils % 0.3 (0.0-0.4) % Absolute Granulocytes 9.56 H (1.4-6.9) Basophils # 0.05 (0-0.4) Sodium (137-145) mmol/L Potassium (3.5-5.1) mmol/L Chloride (98-107) mmol/L Carbon Dioxide (22-30) mmol/L Anion Gap (5-15) MEQ/L BUN (7-17) mg/dL Creatinine (0.52-1.04) mg/dL Estimated GFR ML/MIN Glucose (74-106) mg/dL POC Glucometer 126 H (74 to 106) mg/dL Calcium (8.4-10.2) mg/dL Total Bilirubin (0.2-1.3) mg/dL AST (14-36) U/L ALT (0-35) U/L Alkaline Phosphatase (38-126) U/L Serum Total Protein (6.3-8.2) g/dL Albumin (3.5-5.0) g/dL TSH 3rd Generation (0.47-4.68) mIU/L Urine Color (YELLOW) Urine Appearance (CLEAR) Urine pH (5-6) Ur Specific [place] (1.005-1.025) Urine Protein (Negative) Urine Ketones (NEGATIVE) Urine Blood (0-5) Issac/ul Urine Nitrite (NEGATIVE) Urine Bilirubin (NEGATIVE) Urine Urobilinogen (0-1) mg/dL Ur Leukocyte Esterase (NEGATIVE) Urine WBC (Auto) (0-5) /HPF Urine RBC (Auto) (0-2) /HPF U Hyaline Cast (Auto) (0-2) /LPF U Epithel Cells (Auto) (FEW) /HPF Urine Bacteria (Auto) (NEGATIVE) /HPF Urine Mucus (Auto) (NEGATIVE) /HPF Urine Culture Reflexed (NO) Urine Glucose (NEGATIVE) mg/dL Urine HCG, Qual (Negative) Salicylates (2-20) mg/dL Urine Opiates Level (NEGATIVE) Ur Methadone (NEGATIVE) Acetaminophen (10-30) ug/ml Urine Barbiturates (NEGATIVE) Ur Phencyclidine (PCP) (NEGATIVE) Urine Amphetamine (NEGATIVE) U Benzodiazepine Level (NEGATIVE) Urine Cocaine (NEGATIVE) Urine Marijuana (THC) (NEGATIVE) Ethyl Alcohol (0-10) mg/dL - Progress Progress: improved Progress Note: Patient reassessed. She feels much better. After the Xanax administration. Patient appears to be dehydrated based on her original CMP. We administered 2 L of IV fluids and repeated a CMP. Her labs significantly improved. Case discussed with patient's primary care doctor Dr. Elias who agrees with plan to discharge. Patient has a prescription for Xanax available to her currently as a refill from her primary care doctor. She will pick that up tomorrow morning. Dr. Elias will see patient on Tuesday for reevaluation. Patient will call Dr. Elias's office tomorrow morning to establish an appointment. Patient voiced no other complaints concerns at this time. Patient requesting discharge. Will discharge home. Dictation disclaimer. 08/06/21 19:05 Discussed with : Vidhi Will see patient in: office Counseled pt/family regarding: lab results, diagnosis, need for follow-up, rad results - Departure Departure Disposition: Home Clinical Impression: Leukocytosis, High anion gap metabolic acidosis, Dehydration, Acute renal injury, Hypercalcemia, Hyperbilirubinemia, Hypoalbuminemia, Urinary tract infection Condition: Stable Critical Care Time: No Referrals: JENNI IRBY [Primary Care Provider] - Follow up/PCP as directed Additional Instructions: Discharge/Care Plan JADE ORR was seen on 08/06/21 in the Emergency Room. The patient was counseled regarding Diagnosis,Lab results, Imaging studies, need for follow up and when to return to the Emergency Room. Prescriptions given: Discharge Note I have spoken with the patient and/or caregivers. I have explained the patient's condition, diagnosis and treatment plan based on the information available to me at this time. I have answered the patient's and/or caregiver's questions and addressed any concerns. The patient and/or caregivers have as good understanding of the patient's diagnosis, condition and treatment plan as can be expected at this point. The vital signs have been stable. The patient's condition is stable and appropriate for discharge from the emergency department. The patient will pursue further outpatient evaluation with the primary care physician or other designated or consulting physician as outlined in the discharge instructions. The patient and/or caregivers are agreeable to this plan of care and follow-up instructions have been explained in detail. The patient and/or caregivers have received these instruction. The patient/and or caregivers are aware that any significant change in condition or worsening of symptoms should prompt an immediate return to this or the closest emergency department or call 911. Prescriptions: Nitrofurantoin Macro 100 mg [Macrobid 100MG Capsule] 100 mg PO BID 7 Days #14 cap
[2021-08-06 14:38] LABS: ACETAMINOPHEN < 10 ug/ml (10-30); ALBUMIN 5.3 g/dL (3.5-5.0); ALKALINE PHOSPHATASE 150 U/L (38-126); ANION GAP 22.9 MEQ/L (5-15); BLOOD UREA NITROGEN 31 mg/dL (7-17); CHLORIDE 101 mmol/L (98-107); Calcium 11.5 mg/dL (8.4-10.2); Carbon Dioxide 18 mmol/L (22-30); Creatinine 1 1.32 mg/dL (0.52-1.04); EST GLOMERULAR FILTRATION RATE 44.7 ML/MIN; ETHYL ALCOHOL < 10 mg/dL (0-10); Glucose 121 mg/dL (74-106); Potassium 4.8 mmol/L (3.5-5.1); SALICYLATE < 1.0 mg/dL (2-20); SGOT/AST 30 U/L (14-36); SGPT/ALT 23 U/L (0-35); SODIUM 137 mmol/L (137-145); Total Protein 9.4 g/dL (6.3-8.2)
--- NOTE | 2021-08-06 14:38 | XRAY ---
Indication: Anxiety. Multiple contiguous axial images obtained through the head without contrast. Comparison: February 22, 2021. Normal appearing brain parenchyma, ventricles, and bony calvarium. Visualized paranasal sinuses and mastoid air cells are clear. Impression: Continued normal CT head without contrast exam.
[2021-08-06 14:41] LABS: Absolute Neutrophil Ct (ANC) 9.56 (1.4-6.9); Basophil (Absolute #) 0.05 (0-0.4); Eosinophil % 0.3 % (0.00-5.0); Eosinophil (Absolute #) 0.05 (0-0.5); Hematocrit 44.1 % (35-47); Hemoglobin 14.3 gm/dl (12.0-16.0); Lymphocyte (Absolute #) 3.65 (1.0-4.6); Lymphocytes % 25.1 % (24.0-44.0); Mean Cell Volume 95.5 fl (78-100); Mean Corpuscular Hgb Concent. 32.4 g/dl (32-36); Mean Platelet Volume 10.1 fl (7.5-11.0); Monocyte (Absolute #) 1.23 (0.0-1.3); Monocytes % 8.5 % (0.0-12.0); Neutrophil % 65.8 % (36.0-66.0); Platelet Count 426 K/mm3 (150-450); Red Blood Count 4.62 M/mm3 (4.1-5.4); Red Cell Distribution Width 12.7 % (11.5-14.0); White Blood Count 14.5 K/mm3 (4.0-10.5)
[2021-08-06 16:55] LABS: Appearance SLIGHTLY CLOUDY (CLEAR); Bacteria MODERATE /HPF (NEGATIVE); Bilirubin NEGATIVE (NEGATIVE); Blood SMALL Ery/ul (0-5); Epithelial Cells FEW /HPF (FEW); Glucose NEGATIVE (NEGATIVE); Ketones SMALL (NEGATIVE); Leukocyte Esterase SMALL (NEGATIVE); Mucus SLIGHT /HPF (NEGATIVE); Nitrite NEGATIVE (NEGATIVE); Protein,Urine Dip 30 (Negative); RBC 0-2 /HPF (0-2); Specific Gravity 1.018 (1.005-1.025); Urobilinogen NEGATIVE mg/dL (0-1)
[2021-08-06 17:01] LABS: Amphetamine,Urine NEGATIVE (NEGATIVE); Barbiturate,Urine NEGATIVE (NEGATIVE); Benzodiazepine,Urine POSITIVE (NEGATIVE); Cocaine,Urine NEGATIVE (NEGATIVE); Methadone,Urine NEGATIVE (NEGATIVE); Opiate,Urine NEGATIVE (NEGATIVE); PCP,Urine NEGATIVE (NEGATIVE); THC,Urine NEGATIVE (NEGATIVE)
[2021-08-06] MEDS ORDERED: ROCEPHIN 1 Gm-D5w 50 ml Bag** 1 G/50 ML IVPB IV ONE (17:03)
[2021-08-06] MEDS ORDERED: ROCEPHIN 1 Gm-D5w 50 ml Bag** 1 G/50 ML IVPB IV STA (17:03)
[2021-08-06 17:57] LABS: ALBUMIN 4.1 g/dL (3.5-5.0); ALKALINE PHOSPHATASE 110 U/L (38-126); ANION GAP 13.5 MEQ/L (5-15); BLOOD UREA NITROGEN 28 mg/dL (7-17); CHLORIDE 108 mmol/L (98-107); Carbon Dioxide 20 mmol/L (22-30); Creatinine 1 0.95 mg/dL (0.52-1.04); EST GLOMERULAR FILTRATION RATE > 60.0 ML/MIN; Glucose 119 mg/dL (74-106); Potassium 4.6 mmol/L (3.5-5.1); SGOT/AST 24 U/L (14-36); SGPT/ALT 16 U/L (0-35); SODIUM 137 mmol/L (137-145); Total Protein 7.4 g/dL (6.3-8.2)
[2021-08-06 18:02] LABS: Calcium 9.3 mg/dL (8.4-10.2)
[2021-08-06 18:20] VITALS: BP 141/95
[2021-08-06 19:24] VITALS: PULSE 80; O2SAT 97
== END 2021-08-06 19:31 | disposition home or self-care (01) ==
LOC: ED 13:29
DX: N39.0 Urinary tract infection, site not specified (principal); N17.9 Acute kidney failure, unspecified; E87.2 Acidosis; E86.0 Dehydration; R41.0 Disorientation, unspecified; N28.9 Disorder of kidney and ureter, unspecified; D72.829 Elevated white blood cell count, unspecified; E83.52 Hypercalcemia; E80.6 Other disorders of bilirubin metabolism; E88.09 Other disorders of plasma-protein metabolism, not elsewhere classified; F22 Delusional disorders; F32.A Depression, unspecified; F41.9 Anxiety disorder, unspecified; Z79.899 Other long term (current) drug therapy
CPT/HCPCS: 36000; 36415; 70450; 80053; 80307; 81001; 82947; 84443; 84703; 85025; 87086; 93005; 93041; 96360; 96361; 96374; 99284; G0480; J0696; A9270-GY

== ENCOUNTER 2022-05-31 12:36 | Emergency (ER) | payer OTHER ==
[2022-05-31 14:21] VITALS: O2SAT 98
[2022-05-31] MEDS ORDERED: Zofran 4 MG/2 ML VIAL IV ONE (14:31)
[2022-05-31] MEDS ORDERED: TORAdol 30 mg Injection IM ONE (14:34)
[2022-05-31] MEDS ORDERED: TORAdol 30 mg Injection ONE (14:37)
[2022-05-31] MEDS ORDERED: ZOFRAN ODT 4 MG ONE (14:37)
[2022-05-31] MEDS ORDERED: ZOFRAN ODT 4 MG PO ONE (14:40)
[2022-05-31 15:24] LABS: Absolute Neutrophil Ct (ANC) 2.62 x10^3/uL (1.4-6.9); Basophil (Absolute #) 0.04 x10^3/uL (0-0.4); Eosinophil % 3.1 % (0.00-5.0); Eosinophil (Absolute #) 0.19 x10^3/uL (0-0.5); Hemoglobin 13.1 g/dL (12.0-16.0); Lymphocyte (Absolute #) 2.73 x10^3/uL (1.0-4.6); Lymphocytes % 43.9 % (24.0-44.0); Mean Cell Volume 94.3 fL (78-100); Mean Corpuscular Hemoglobin 30.1 pg (26-32); Mean Platelet Volume 9.6 fL (7.5-11.0); Monocyte (Absolute #) 0.63 x10^3/uL (0.0-1.3); Monocytes % 10.1 % (0.0-12.0); Neutrophil % 42.1 % (36.0-66.0); Platelet Count 268 x10^3/uL (150-450); Red Blood Count 4.35 x10^6/uL (4.1-5.4); Red Cell Distribution Width 11.9 % (11.5-14.0); White Blood Count 6.2 x10^3/uL (4.0-10.5)
[2022-05-31 15:37] LABS: ANION GAP 3.5 MEQ/L (5-15); BLOOD UREA NITROGEN 11 mg/dL (7-17); CHLORIDE 107 mmol/L (98-107); Calcium 9.2 mg/dL (8.4-10.2); Carbon Dioxide 31 mmol/L (22-30); Creatinine 1 0.84 mg/dL (0.52-1.04); EST GLOMERULAR FILTRATION RATE > 60.0 ML/MIN; Glucose 108 mg/dL (74-106); Potassium 4.4 mmol/L (3.5-5.1); SODIUM 137 mmol/L (137-145)
--- NOTE | 2022-05-31 16:04 | XRAY ---
Indication: 56-year-old female complaining of 9-3:00 right upper breast pain. Status post benign 1:00 right breast biopsy March 30, 2022. Targeted right breast ultrasound demonstrates 1:00 mammotome clip. No other focal solid/cystic breast mass or abnormal fluid collection. Axilla demonstrates a few benign-appearing lymph nodes, largest 1.1 x 0.4 x 0.9 cm.
--- NOTE | 2022-05-31 16:16 | ERPHSYRPT ---
- History of Present Illness Patient Subjective Stated Complaint: PT STATES THAT HAS BEEN SEEING DR. ACOSTA AT [facility] FOR THE LAST 2 MONTHS AFTER 2 LUMPS FOUND IN RIGHT BREAST - PT REPORTS PAIN TO RIGHT BREAST THAT STARTED LAST NIGHT RATING 9/10. PT REPORTS THAT SHE HAS CLEAR DISCHARGE FROM RIGHT NIPPLE BUT NONE NOTED AT THIS TIME. Triage Nursing Assessment: PT C/O PAIN TO RIGHT BREAST RATING PAIN 9/10 AT THIS TIME. NO VISUAL DEFORMITY NOTED TO BREAST. BREAST IS NOT FIRM TO TOUCH BUT PT REPORTS TENDERNESS UPON EXAM. NO DISCHARGE NOTED AT THIS TIME. PT TEARFUL AND REPORTS ANXIETY. Physician History: 56yo F presents to the ER w/ right breast pain, swelling and clear nipple discharge. Pain is sharp, 9/10 in severity w/out radiation. Patient had a breast bx performed in March and reports issues since that time. She denies F/C/N/V/D/C. No new medications. The breast isn't red or warm to touch. Timing/Duration: week(s) (2) Severity: severe Modifying Factors: Improves With: nothing Associated Symptoms: No nausea, No vomiting, No shortness of breath, No chest p ain, No fever, No loss of appetite, No malaise Allergies/Adverse Reactions: Penicillins Allergy (Unknown, Verified 08/06/21 13:38) spinach Allergy (Verified 05/31/22 12:44) morphine Adverse Reaction (Verified 08/06/21 13:38) vomiting Home Medications: Duloxetine HCl [Cymbalta] 60 mg PO HS 08/05/20 [History] ALPRAZolam 1 MG [Xanax 1 mg] 0.5 mg PO BID 05/31/22 [History] Hx Tetanus, Diphtheria Vaccination/Date Given: Yes Hx Influenza Vaccination/Date Given: No Hx Pneumococcal Vaccination/Date Given: No Travel Risk - International Travel Have you traveled outside of the country in past 3 weeks: No - Coronavirus Screening Are you exhibiting any of the following symptoms?: No - Vaccine Status Have you recieved a Covid-19 vaccination: No - Review of Systems Constitutional: No Symptoms Eyes: No Symptoms Ears, Nose, & Throat: No Symptoms Respiratory: No Symptoms Cardiac: No Symptoms Abdominal/Gastrointestinal: No Symptoms Genitourinary Symptoms: No Symptoms Musculoskeletal: No Symptoms Skin: Other (right breast pain and clear nipple d/c) Neurological: No Symptoms Psychological: Anxiety Endocrine: No Symptoms Hematologic/Lymphatic: No Symptoms Immunological/Allergic: No Symptoms - Past Medical History Pertinent Past Medical History: Yes Neurological History: No Pertinent History ENT History: No Pertinent History Cardiac History: Myocardial Infarction ([place]), Other Respiratory History: No Pertinent History Endocrine Medical History: No Pertinent History Musculoskeletal History: No Pertinent History GI Medical History: No Pertinent History History: No Pertinent History Psycho-Social History: Anxiety, Depression Female Reproductive Disorders: No Pertinent History Other Medical History: possible [place], pt unsure - 2015, regurgitating valve, constant leg pain - Past Surgical History Past Surgical History: Yes Neuro Surgical History: No Pertinent History Cardiac: No Pertinent History Respiratory: No Pertinent History Gastrointestinal: No Pertinent History Genitourinary: No Pertinent History Musculoskeletal: No Pertinent History Female Surgical History: Section Other Surgical History: ovarian cyst removed at age 20 - Social History Smoking Status: Never smoker Exposure to second hand smoke: Yes Drug Use: none Patient Lives Alone: No Significant Family History: no pertinent family hx - Nursing Vital Signs Nursing Vital Signs: Initial Vital Signs Pulse Rate 104 H 05/31/22 12:36 Blood Pressure 126/104 05/31/22 12:36 O2 Sat by Pulse Oximetry 100 05/31/22 12:36 Pain Scale Pain Intensity 0 - Physical Exam General Appearance: moderate distress Eye Exam: PERRL/EOMI Ears, Nose, Throat Exam: normal ENT inspection Neck Exam: normal inspection Respiratory Exam: normal breath sounds Cardiovascular Exam: regular rate/rhythm, normal heart sounds Gastrointestinal/Abdomen Exam: soft, No tenderness Extremity Exam: normal inspection Neurologic Exam: alert, oriented x 3, cooperative Skin Exam: other (R breast firm and TTP, no nipple d/c present or expressed, no warmth, no redness) Lymphatic Exam: No adenopathy SpO2 Interpretation: normal SpO2: 98 O2 Delivery: Room Air - Radiology Ultrasound Exam Right Other Ultrasound: Other (small benign appearing axillary LN, no mass or abscess) Ordered Tests: Medication Summary Discontinued Medications Generic Name Dose Route Start Last Admin Trade Name Freq PRN Reason Stop Dose Admin Ketorolac Tromethamine 60 mg 05/31/22 14:34 05/31/22 14:38 Ketorolac Tromethamine 30 Mg/Ml Inj IM 05/31/22 14:35 60 mg STAT ONE Administration Ketorolac Tromethamine Confirm 05/31/22 14:37 Ketorolac Tromethamine 30 Mg/Ml Inj Administered 05/31/22 14:38 Dose 60 mg .ROUTE .STK-MED ONE Ondansetron HCl 4 mg 05/31/22 14:31 05/31/22 14:44 Ondansetron Hcl 4 Mg/2 Ml Vial IV 05/31/22 14:32 Not Given STAT ONE Ondansetron HCl Confirm 05/31/22 14:37 Zofran 4 Mg/Udtablet Orally Disintegrating Administered 05/31/22 14:38 Dose 4 mg .ROUTE .STK-MED ONE Ondansetron HCl 4 mg 05/31/22 14:40 05/31/22 14:41 Zofran 4 Mg/Udtablet Orally Disintegrating PO 05/31/22 14:41 4 mg STAT ONE Administration Lab/Rad Data: Laboratory Result Diagrams 05/31/22 15:20 05/31/22 15:20 Laboratory Results 05/31/22 05/31/22 Range/Units 15:20 15:20 WBC 6.2 (4.0-10.5) x10^3/uL RBC 4.35 (4.1-5.4) x10^6/uL Hgb 13.1 (12.0-16.0) g/dL Hct 41.0 (35-47) % MCV 94.3 (78-100) fL MCH 30.1 (26-32) pg MCHC 32.0 (32-36) g/dL RDW 11.9 (11.5-14.0) % Plt Count 268 (150-450) x10^3/uL MPV 9.6 (7.5-11.0) fL Gran % 42.1 (36.0-66.0) % Immature Gran % (Auto) 0.2 (0.00-0.4) % Nucleat RBC Rel Count 0.0 (0.00-0.1) % Eos # (Auto) 0.19 (0-0.5) x10^3/uL Immature Gran # (Auto) 0.01 (0.00-0.03) x10^3u/L Absolute Lymphs (auto) 2.73 (1.0-4.6) x10^3/uL Absolute Monos (auto) 0.63 (0.0-1.3) x10^3/uL Absolute Nucleated RBC 0.00 (0.00-0.01) x10^3u/L Lymphocytes % 43.9 (24.0-44.0) % Monocytes % 10.1 (0.0-12.0) % Eosinophils % 3.1 (0.00-5.0) % Basophils % 0.6 (0.0-0.4) % Absolute Granulocytes 2.62 (1.4-6.9) x10^3/uL Basophils # 0.04 (0-0.4) x10^3/uL Sodium 137 (137-145) mmol/L Potassium 4.4 (3.5-5.1) mmol/L Chloride 107 (98-107) mmol/L Carbon Dioxide 31 H (22-30) mmol/L Anion Gap 3.5 L (5-15) MEQ/L BUN 11 (7-17) mg/dL Creatinine 0.84 (0.52-1.04) mg/dL Estimated GFR > 60.0 ML/MIN Glucose 108 H (74-106) mg/dL Calcium 9.2 (8.4-10.2) mg/dL - Progress Progress: improved Progress Note: US showed no mass or abscess of the right breast, small, benign appearing axillary LN noted. Will d/c w/ pain meds and encourage to use warm compresses. Patient will need f/u w/ breast surgeon. 06/03/22 14:02 Counseled pt/family regarding: need for follow-up, rad results - Departure Departure Disposition: Home Clinical Impression: Breast pain, right, Mastalgia in female Condition: Stable Critical Care Time: No Referrals: JENNI IRBY [Primary Care Provider] - Follow up/PCP as directed Instructions: Mastalgia Prescriptions: Hydrocodone/Acetaminophen [Hydrocodone-Acetamin 5-325 mg] 1 tab PO Q6HPRN PRN 7 Days #28 tablet MDD 4 PRN Reason: Pain
[2022-05-31 16:47] VITALS: BP 134/75; PULSE 80
== END 2022-05-31 16:47 | disposition home or self-care (01) ==
LOC: ED 12:36
DX: N64.4 Mastodynia (principal); Z79.891 Long term (current) use of opiate analgesic; Z79.899 Other long term (current) drug therapy; Z28.310 Unvaccinated for COVID-19
CPT/HCPCS: 36415; 76641; 80048; 85025; 96372; 99284; J1885; Q0162

== ENCOUNTER 2023-12-28 12:56 | Observation (INO) | payer OTHER ==
--- NOTE | 2023-12-28 13:03 | ERPHSYRPT ---
- History of Present Illness Time Seen by Provider: 12/28/23 13:03 Source: patient Exam Limitations: no limitations Physician History: This is an overweight 58-year-old white female patient of Dr. Washington who presents with abdominal pain primarily in the epigastric area and also generalized. Patient has associated nausea vomiting loose stools. Patient describes this pain as burning and constant. She states she has never had this kind of pain before. She denies chest pain. She denies shortness of breath. Patient has had a history/bout of pancreatitis but she does not recall if this is similar in its type of pain. Patient has a history of anxiety and panic a ttacks. Patient has a questionable history of myocardial infarction. However, she has no cardiac stents in place. She has no known exposures to individuals that have similar symptoms or have been diagnosed with flu or viral illness. Timing/Duration: day(s) (6) Severity: moderate Associated Symptoms: nausea, vomiting, abdominal pain, loss of appetite, other (Loose stools) Allergies/Adverse Reactions: Penicillins Allergy (Unknown, Verified 12/28/23 13:01) spinach Allergy (Verified 12/28/23 13:01) morphine Adverse Reaction (Verified 12/28/23 13:01) vomiting Home Medications: Duloxetine HCl [Cymbalta] 60 mg PO HS 12/28/23 [History] Quetiapine Fumarate 100 mg [Seroquel 100 MG] 100 mg PO HS 12/28/23 [History] Semaglutide [Ozempic] 2 mg SQ WEEKLY 12/28/23 [History] Hx Tetanus, Diphtheria Vaccination/Date Given: Yes Hx Influenza Vaccination/Date Given: No Hx Pneumococcal Vaccination/Date Given: No Travel Risk - International Travel Have you traveled outside of the country in past 3 weeks: No - Emerging Infectious Disease Are you exhibiting symptoms associated with any current EIDs: Yes Symptoms: Abdominal Pain, Diarrhea, Vomitting - Review of Systems Constitutional: Weakness Eyes: No Symptoms Ears, Nose, & Throat: No Symptoms Respiratory: No Symptoms Cardiac: No Symptoms Abdominal/Gastrointestinal: Abdominal Pain, Nausea, Vomiting, Diarrhea, Appetite Changes Genitourinary Symptoms: No Symptoms Musculoskeletal: No Symptoms Skin: No Symptoms Neurological: No Symptoms Psychological: No Symptoms Endocrine: No Symptoms Hematologic/Lymphatic: No Symptoms Immunological/Allergic: No Symptoms All Other Systems: Reviewed and Negative - Past Medical History Pertinent Past Medical History: Yes Neurological History: No Pertinent History ENT History: No Pertinent History Cardiac History: Myocardial Infarction ([place]), Other Respiratory History: No Pertinent History Endocrine Medical History: No Pertinent History Musculoskeletal History: No Pertinent History GI Medical History: No Pertinent History History: No Pertinent History Psycho-Social History: Anxiety, Depression Female Reproductive Disorders: No Pertinent History Other Medical History: possible [place], pt unsure - 2015, regurgitating valve, constant leg pain - Past Surgical History Past Surgical History: Yes Neuro Surgical History: No Pertinent History Cardiac: No Pertinent History Respiratory: No Pertinent History Gastrointestinal: No Pertinent History Genitourinary: No Pertinent History Musculoskeletal: No Pertinent History Female Surgical History: Section Other Surgical History: ovarian cyst removed at age 20 Significant Family History: no pertinent family hx - Social History Smoking Status: Never smoker Exposure to second hand smoke: Yes Drug Use: none Patient Lives Alone: No - Nursing Vital Signs Nursing Vital Signs: Initial Vital Signs Pulse Rate 85 12/28/23 13:02 Respiratory Rate 21 12/28/23 13:02 Blood Pressure 187/112 12/28/23 13:02 Pain Scale Pain Intensity 3 - Physical Exam General Appearance: mild distress, alert, anxiety Eye Exam: PERRL/EOMI Ears, Nose, Throat Exam: normal ENT inspection, moist mucous membranes Neck Exam: normal inspection, non-tender, supple, full range of motion Respiratory Exam: normal breath sounds, lungs clear, airway intact, No chest tenderness, No respiratory distress Gastrointestinal/Abdomen Exam: soft, normal bowel sounds, No tenderness Pelvic Exam: not done Rectal Exam: not done Back Exam: normal inspection, normal range of motion, No CVA tenderness, No vertebral tenderness Extremity Exam: normal inspection, normal range of motion, pelvis stable Neurologic Exam: alert, oriented x 3, cooperative, 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, nml cerebellar function, nml station & gait, sensation nml Skin Exam: normal color, warm, dry Lymphatic Exam: No adenopathy SpO2 Interpretation: normal O2 Delivery: Room Air - Course Nursing assessment & vital signs reviewed: Yes Ordered Tests: Active Orders 24 hr Category Date Time Status EKG-ER Only STAT Care 12/28/23 13:32 Active IV Insertion STAT Care 12/28/23 13:32 Active ABDOMEN AND PELVIS W/0 CONTRAS [CT] Stat Exams 12/28/23 13:33 Completed AMYLASE Stat Lab 12/28/23 13:40 Completed BLOOD CULTURE Stat Lab 12/28/23 13:50 Ordered CBC W DIFF Stat Lab 12/28/23 13:40 Completed CMP Stat Lab 12/28/23 13:40 Completed LIPASE Stat Lab 12/28/23 13:40 Completed Lactic Acid Stat Lab 12/28/23 13:37 Completed MONO SCREEN Stat Lab 12/28/23 13:40 Completed POCT GLUCOSE Stat Lab 12/28/23 13:09 Completed TROPONIN Q4H Lab 12/28/23 13:40 Completed TROPONIN Q4H Lab 12/28/23 17:45 Ordered TROPONIN Q4H Lab 12/28/23 21:45 Ordered UA W/RFX UR CULTURE Stat Lab 12/28/23 13:32 Ordered Medication Summary Discontinued Medications Generic Name Dose Route Start Last Admin Trade Name Freq PRN Reason Stop Dose Admin Bupivacaine HCl Confirm 12/28/23 16:41 Bupivacaine Hcl 2.5 Mg/Ml 10 Ml Administered 12/28/23 16:42 Dose 10 ml .ROUTE .STK-MED ONE Hydromorphone HCl 1 mg 12/28/23 13:37 12/28/23 13:47 Hydromorphone 1 Mg/1ml Inj IV 12/28/23 13:38 1 mg STAT ONE Administration Hydromorphone HCl Confirm 12/28/23 13:46 Hydromorphone 1 Mg/1ml Inj Administered 12/28/23 13:47 Dose 1 mg .ROUTE .STK-MED ONE Sodium Chloride 1,000 mls @ 999 mls/hr 12/28/23 13:32 12/28/23 14:44 Sodium Chloride 0.9% 1000 Ml IV 12/28/23 14:32 Infused .Q1H1M STA Infusion Sodium Chloride Confirm 12/28/23 13:37 Sodium Chloride 0.9% 1000 Ml Administered 12/28/23 13:38 Dose 1,000 mls @ ud .ROUTE .STK-MED ONE Levofloxacin/Dextrose 500 mg in 100 mls @ 100 mls/hr 12/28/23 14:51 12/28/23 16:43 Levofloxacin 500mg/100ml D5w IV 12/28/23 15:50 Infused STAT STA Infusion Metronidazole 500 mg in 100 mls @ 200 mls/hr 12/28/23 14:51 12/28/23 15:35 Flagyl 500 Mg Ivpb IV 12/28/23 15:20 Infused STAT STA Infusion Metronidazole Confirm 12/28/23 15:03 Flagyl 500 Mg Ivpb Administered 12/28/23 15:04 Dose 500 mg in 100 mls @ ud IV .STK-MED ONE Levofloxacin/Dextrose Confirm 12/28/23 15:19 Levofloxacin 500mg/100ml D5w Administered 12/28/23 15:20 Dose 500 mg in 100 mls @ ud IV .STK-MED ONE Pantoprazole Sodium 40 mg 12/28/23 13:32 12/28/23 13:42 Pantoprazole 40 Mg Vial IV 12/28/23 13:33 40 mg STAT ONE Administration Pantoprazole Sodium Confirm 12/28/23 13:37 Pantoprazole 40 Mg Vial Administered 12/28/23 13:38 Dose 40 mg IV .STK-MED ONE Prochlorperazine Edisylate 5 mg 12/28/23 13:32 12/28/23 13:39 Prochlorperazine Edisylate 10 Mg/2 Ml Vial IV 12/28/23 13:33 5 mg STAT ONE Administration Prochlorperazine Edisylate Confirm 12/28/23 13:37 Prochlorperazine Edisylate 10 Mg/2 Ml Vial Administered 12/28/23 13:38 Dose 10 mg .ROUTE .[facility]-MED ONE Lab/Rad Data: Laboratory Result Diagrams 12/28/23 13:40 12/28/23 13:40 Laboratory Results 12/28/23 12/28/23 12/28/23 Range/Units 13:55 13:40 13:40 WBC (3.98-10.04) x10^3/uL RBC (3.93-5.22) x10^6/uL Hgb (11.2-15.7) g/dL Hct (34.1-44.9) % MCV (79.4-94.8) fL MCH (25.6-32.2) pg MCHC (32.2-35.5) g/dL RDW (11.7-14.4) % Plt Count (182-369) x10^3/uL MPV (9.4-12.3) fL Gran % (34.0-71.1) % Immature Gran % (Auto) (0.001-0.429) % Nucleat RBC Rel Count (0.00-0.2) % Eos # (Auto) (0.04-0.36) x10^3/uL Immature Gran # (Auto) (0.001-0.031) x10^3u/L Absolute Lymphs (auto) (1.18-3.74) x10^3/uL Absolute Monos (auto) (0.24-0.86) x10^3/uL Absolute Nucleated RBC (0.00-0.012) x10^3u/L Lymphocytes % (19.3-51.7) % Monocytes % (4.7-12.5) % Eosinophils % (0.7-5.8) % Basophils % (0.1-1.2) % Absolute Granulocytes (1.56-6.13) x10^3/uL Basophils # (0.01-0.08) x10^3/uL Sodium (135-145) mmol/L Potassium (3.5-5.1) mmol/L Chloride (98-107) mmol/L Carbon Dioxide (22-30) mmol/L Anion Gap (5-15) MEQ/L BUN (7-17) mg/dL Creatinine (0.52-1.04) mg/dL Estimated GFR ML/MIN Glucose (74-106) mg/dL POC Glucometer (74 to 106) mg/dL Lactic Acid (0.4-2.0) Calcium (8.4-10.2) mg/dL Total Bilirubin (0.2-1.3) mg/dL AST (14-36) U/L ALT (0-35) U/L Alkaline Phosphatase (38-126) U/L Troponin I < 0.012 (0.000-0.033) ng/mL Serum Total Protein (6.3-8.2) g/dL Albumin (3.5-5.0) g/dL Amylase (30-110) U/L Lipase (23-300) U/L Monoscreen NEGATIVE (NEGATIVE) Influenza Type A Ag NEGATIVE (NEGATIVE) Influenza Type B Ag NEGATIVE (NEGATIVE) RSV (PCR) NEGATIVE (NEGATIVE) SARS-CoV-2 (PCR) NEGATIVE (NEGATIVE) 12/28/23 12/28/23 12/28/23 Range/Units 13:40 13:40 13:37 WBC 10.2 H (3.98-10.04) x10^3/uL RBC 5.02 (3.93-5.22) x10^6/uL Hgb 14.7 (11.2-15.7) g/dL Hct 42.8 (34.1-44.9) % MCV 85.3 (79.4-94.8) fL MCH 29.3 (25.6-32.2) pg MCHC 34.3 (32.2-35.5) g/dL RDW 12.3 (11.7-14.4) % Plt Count 348 (182-369) x10^3/uL MPV 10.0 (9.4-12.3) fL Gran % 62.1 (34.0-71.1) % Immature Gran % (Auto) 0.3 (0.001-0.429) % Nucleat RBC Rel Count 0.0 (0.00-0.2) % Eos # (Auto) 0.13 (0.04-0.36) x10^3/uL Immature Gran # (Auto) 0.03 (0.001-0.031) x10^3u/L Absolute Lymphs (auto) 2.44 (1.18-3.74) x10^3/uL Absolute Monos (auto) 1.24 H (0.24-0.86) x10^3/uL Absolute Nucleated RBC 0.00 (0.00-0.012) x10^3u/L Lymphocytes % 23.9 (19.3-51.7) % Monocytes % 12.2 (4.7-12.5) % Eosinophils % 1.3 (0.7-5.8) % Basophils % 0.2 (0.1-1.2) % Absolute Granulocytes 6.34 H (1.56-6.13) x10^3/uL Basophils # 0.02 (0.01-0.08) x10^3/uL Sodium 135 (135-145) mmol/L Potassium 4.2 (3.5-5.1) mmol/L Chloride 101 (98-107) mmol/L Carbon Dioxide 25 (22-30) mmol/L Anion Gap 14.5 (5-15) MEQ/L BUN 13 (7-17) mg/dL Creatinine 0.94 (0.52-1.04) mg/dL Estimated GFR 71.2 ML/MIN Glucose 140 H (74-106) mg/dL POC Glucometer (74 to 106) mg/dL Lactic Acid 1.4 (0.4-2.0) Calcium 10.1 (8.4-10.2) mg/dL Total Bilirubin 1.20 (0.2-1.3) mg/dL AST 18 (14-36) U/L ALT 17 (0-35) U/L Alkaline Phosphatase 128 H (38-126) U/L Troponin I (0.000-0.033) ng/mL Serum Total Protein 7.4 (6.3-8.2) g/dL Albumin 4.1 (3.5-5.0) g/dL Amylase 89 (30-110) U/L Lipase 278 (23-300) U/L Monoscreen (NEGATIVE) Influenza Type A Ag (NEGATIVE) Influenza Type B Ag (NEGATIVE) RSV (PCR) (NEGATIVE) SARS-CoV-2 (PCR) (NEGATIVE) 12/28/23 Range/Units 13:09 WBC (3.98-10.04) x10^3/uL RBC (3.93-5.22) x10^6/uL Hgb (11.2-15.7) g/dL Hct (34.1-44.9) % MCV (79.4-94.8) fL MCH (25.6-32.2) pg MCHC (32.2-35.5) g/dL RDW (11.7-14.4) % Plt Count (182-369) x10^3/uL MPV (9.4-12.3) fL Gran % (34.0-71.1) % Immature Gran % (Auto) (0.001-0.429) % Nucleat RBC Rel Count (0.00-0.2) % Eos # (Auto) (0.04-0.36) x10^3/uL Immature Gran # (Auto) (0.001-0.031) x10^3u/L Absolute Lymphs (auto) (1.18-3.74) x10^3/uL Absolute Monos (auto) (0.24-0.86) x10^3/uL Absolute Nucleated RBC (0.00-0.012) x10^3u/L Lymphocytes % (19.3-51.7) % Monocytes % (4.7-12.5) % Eosinophils % (0.7-5.8) % Basophils % (0.1-1.2) % Absolute Granulocytes (1.56-6.13) x10^3/uL Basophils # (0.01-0.08) x10^3/uL Sodium (135-145) mmol/L Potassium (3.5-5.1) mmol/L Chloride (98-107) mmol/L Carbon Dioxide (22-30) mmol/L Anion Gap (5-15) MEQ/L BUN (7-17) mg/dL Creatinine (0.52-1.04) mg/dL Estimated GFR ML/MIN Glucose (74-106) mg/dL POC Glucometer 138 H (74 to 106) mg/dL Lactic Acid (0.4-2.0) Calcium (8.4-10.2) mg/dL Total Bilirubin (0.2-1.3) mg/dL AST (14-36) U/L ALT (0-35) U/L Alkaline Phosphatase (38-126) U/L Troponin I (0.000-0.033) ng/mL Serum Total Protein (6.3-8.2) g/dL Albumin (3.5-5.0) g/dL Amylase (30-110) U/L Lipase (23-300) U/L Monoscreen (NEGATIVE) Influenza Type A Ag (NEGATIVE) Influenza Type B Ag (NEGATIVE) RSV (PCR) (NEGATIVE) SARS-CoV-2 (PCR) (NEGATIVE) - Progress Progress: improved, pain not gone completely Progress Note: 12/28/23 14:16 Medical decision making and the assignment of moderate complexity to this patient's medical issue today is based on review of the patient's past medical history, review the patient's medication list, review patient drug allergy list, history present illness and physical findings on examination. The workup of this patient includes placement of intravenous line, urinalysis, lactic acid level, CBC, CMP, viral swabs, monotest, amylase, lipase, CT scan of the abdomen pelvis without contrast. Infusion of antiemetic, narcotic pain medicine and normal saline. Differential diagnosis includes but is not limited to gastroenteritis, gastritis, colitis, pancreatitis, acute appendicitis, viral illness 12/28/23 15:10 I interpreted the patient's laboratory data results. Patient has a mildly eleva cristiana white blood cell count. No other significant, acute or emergent laboratory data results present. CT scan of the abdomen pelvis without contrast was interpreted by the radiologist and I reviewed the impression. The impression states distended appendix 1.8 cm with periappendiceal stranding. New CT findings favoring acute appendicitis. There is no free air and no free fluid. 12/28/23 15:11 I discussed with the patient the results of her laboratory and radiographic study workup. Despite her understanding of acute appendicitis and the progression to perforation and possible sepsis and even , the patient is not wanting surgical intervention and wants to be discharged to home. Patient is awake alert oriented. We discussed signing the AGAINST MEDICAL ADVICE form. She understands and will sign the AGAINST MEDICAL ADVICE form. However, I will have the nurse go in and speak with her again before she leaves AGAINST MEDICAL ADVICE and hopes that she will change her mind and stay. 12/28/23 16:53 The patient has opted to stay to undergo her surgical procedure. Dr. Ford Griggs, who is on for general surgery today but in a surgical case at this time, has been notified. He has not yet called back but he has had anesthesia evaluate this patient and will he will be taking this patient to the operating room this afternoon/evening. It is uncertain to me whether or not Dr. Griggs will be contacting me. However, I do not believe it is absolutely necessary to do so prior to the surgery. I am here if he requires more information for me. Counseled pt/family regarding: lab results, diagnosis, need for follow-up, rad results Medical Desision Making - Diagnostic Testing Diagnostic test were ordered, analyzed, and reviewed by me: Yes Radiological Interpretation: Reviewed by me, Teleradiologist Report - Risk of complications The pt has a high risk of morbidity or mortality based on: Need for emergency major surgery - Departure Departure Disposition: Release to [place]/[facility] [place] Clinical Impression: Acute appendicitis Condition: Stable Critical Care Time: Yes Critical Care Time(excluding separately billable procedures): Critical 30-74 mins (40) Referrals: KING WASHINGTON MD [CONSULTING PHYSICIAN] - Follow up/PCP as directed Instructions: Appendicitis in adults
[2023-12-28] MEDS ORDERED: PROTONIX 40 MG IV IV ONE (13:37)
[2023-12-28] MEDS ORDERED: Compazine 10 MG/2 ML ONE (13:37)
[2023-12-28] MEDS ORDERED: Sodium Chloride 0.9% 1000 ML 1,000 ML ONE (13:37)
[2023-12-28] MEDS: Compazine 10 MG/2 ML IV ONE (13:39)
[2023-12-28] MEDS: Sodium Chloride 0.9% 1000 ML 1,000 ML IV STA (13:40)
[2023-12-28] MEDS: PROTONIX 40 MG IV IV ONE (13:42)
[2023-12-28] MEDS ORDERED: Hydromorphone 1 mg/ml Injection ONE (13:46)
[2023-12-28] MEDS: Hydromorphone 1 mg/ml Injection IV ONE (13:47)
[2023-12-28 14:00] LABS: Absolute Neutrophil Ct (ANC) 6.34 x10^3/uL (1.56-6.13); BASOPHIL % 0.2 % (0.1-1.2); Basophil (Absolute #) 0.02 x10^3/uL (0.01-0.08); Eosinophil % 1.3 % (0.7-5.8); Eosinophil (Absolute #) 0.13 x10^3/uL (0.04-0.36); Hematocrit 42.8 % (34.1-44.9); Hemoglobin 14.7 g/dL (11.2-15.7); IMMATURE GRAN # 0.03 x10^3u/L (0.001-0.031); IMMATURE GRAN % 0.3 % (0.001-0.429); Lymphocyte (Absolute #) 2.44 x10^3/uL (1.18-3.74); Lymphocytes % 23.9 % (19.3-51.7); Mean Cell Volume 85.3 fL (79.4-94.8); Mean Corpuscular Hemoglobin 29.3 pg (25.6-32.2); Mean Corpuscular Hgb Concent. 34.3 g/dL (32.2-35.5); Monocyte (Absolute #) 1.24 x10^3/uL (0.24-0.86); Monocytes % 12.2 % (4.7-12.5); Neutrophil % 62.1 % (34.0-71.1); Platelet Count 348 x10^3/uL (182-369); Red Blood Count 5.02 x10^6/uL (3.93-5.22); Red Cell Distribution Width 12.3 % (11.7-14.4); White Blood Count 10.2 x10^3/uL (3.98-10.04)
[2023-12-28 14:13] LABS: ALBUMIN 4.1 g/dL (3.5-5.0); ANION GAP 14.5 MEQ/L (5-15); BILIRUBIN,TOTAL 1.2 mg/dL (0.2-1.3); Calcium 10.1 mg/dL (8.4-10.2); Creatinine 1 0.94 mg/dL (0.52-1.04); EST GLOMERULAR FILTRATION RATE 71.2 ML/MIN; Potassium 4.2 mmol/L (3.5-5.1); Total Protein 7.4 g/dL (6.3-8.2)
[2023-12-28 14:36] LABS: INFLUENZA A NEGATIVE (NEGATIVE); INFLUENZA B NEGATIVE (NEGATIVE); RESPIRATORY SYNCTIAL VIRUS NEGATIVE (NEGATIVE); SARS-CoV-2 Xpert Express NEGATIVE (NEGATIVE)
--- NOTE | 2023-12-28 14:56 | XRAY ---
Indication: Epigastric pain. Nausea, vomiting, and diarrhea. Multiple contiguous axial images obtained through the abdomen and pelvis without contrast. Comparison: July 31, 2020 Lung bases again demonstrates minimal bibasilar subsegmental atelectasis/scarring and small left base calcified granuloma. No infiltrate or effusion. Heart not enlarged. Stable small hiatal hernia. Noncontrasted stomach and bowel loops nonobstructed. New distended appendix up to 1.8 cm diameter with periappendiceal stranding favoring acute appendicitis. No free fluid/air. Remaining liver, gallbladder, pancreas, spleen, adrenal glands, kidneys, ureters, bladder, uterus, and aorta are unremarkable for noncontrast exam. Osseous structures intact again with mild degenerative changes throughout the spine. Impression: 1. New CT findings favoring acute appendicitis. No complications. 2. Again chronic findings including small hiatal hernia, left lung base calcified granuloma, and multilevel degenerative spondylosis. Comment: Telephone report given to ordering clinician, Dr. Servin at 1450 hrs. on December 28, 2023.
[2023-12-28] MEDS ORDERED: FLAGYL 500 MG IVPB 500 MG/100 ML BAG IV ONE (15:03)
[2023-12-28] MEDS: FLAGYL 500 MG IVPB 500 MG/100 ML BAG IV STA (15:03)
[2023-12-28] MEDS ORDERED: Levofloxacin 500MG/100ML D5W 500 MG/100 ML BAG IV ONE (15:19)
[2023-12-28] MEDS: Levofloxacin 500MG/100ML D5W 500 MG/100 ML BAG IV STA (15:36)
[2023-12-28] MEDS ORDERED: Sensorcaine 0.25% 10 ML ONE (16:41)
[2023-12-28] MEDS ORDERED: Lactated Ringers 1,000 ML IV ONE ×2 (18:06→19:02)
[2023-12-28] MEDS ORDERED: SUBLIMAZE 100 MCG/2 ML ONE ×2 (18:22→18:29)
[2023-12-28] MEDS ORDERED: Versed 2 MG/2 ML Injection ONE (18:22)
[2023-12-28] MEDS ORDERED: DIPRIVAN 200 MG/20 ML IV ONE (18:22)
[2023-12-28] MEDS ORDERED: ROCURONIUM BROMIDE IV ONE (18:22)
[2023-12-28] MEDS ORDERED: Quelicin Fliptop 200 MG/10 ML ONE (18:22)
[2023-12-28] MEDS ORDERED: Xylocaine-Mpf 2% 5 Ml Vial ONE (18:28)
[2023-12-28] MEDS ORDERED: MEFOXIN 2 GM PREMIX** 2 GM/50 ML ML IV ONE (18:43)
[2023-12-28] MEDS ORDERED: Zofran 4 MG/2 ML VIAL ONE (19:00)
[2023-12-28] MEDS ORDERED: BRIDION 200MG/2ML IV ONE (19:00)
[2023-12-28] MEDS ORDERED: TORAdol 30 mg Injection ONE (19:04)
[2023-12-28] MEDS ORDERED: DILAUDID 2 MG INJECTION ONE (19:06)
[2023-12-28] MEDS: D5W/0.45NS W/ 20mEq KCl 1000 ML 1,000 ML IV SCH (20:43)
[2023-12-28] MEDS ORDERED: TYLENOL 325 MG PO PRN (20:55)
[2023-12-28] MEDS ORDERED: Zofran 4 MG/2 ML VIAL IV PRN (20:55)
[2023-12-28] MEDS: Seroquel 100 MG PO SCH (22:46)
[2023-12-28] MEDS: Cymbalta 30 MG Capsule PO SCH (22:46)
[2023-12-28] MEDS: NORCO 5/325 MG PO PRN (22:50)
[2023-12-29 03:10] LABS: Appearance Cloudy (Clear); Bacteria None Seen /HPF (None Seen); Bilirubin Negative (Negative); Blood Negative (Negative); Epithelial Cells Rare /HPF (None Seen); Glucose, Urine Negative (Negative); Ketones Trace (Negative); Leukocyte Esterase Negative (Negative); Nitrite Negative (Negative); Protein,Urine Dip 30 (Negative); RBC 0-2 /HPF (0-5); Specific Gravity >=1.030 (1.005-1.030); Urobilinogen 0.2 mg/dL (0.2); WBC 0-2 /HPF (0-5)
[2023-12-29 03:11] LABS: ADD URINE CULTURE? NO (NO)
[2023-12-29] MEDS: MEFOXIN 2 GM PREMIX** 2 GM/50 ML ML IV SCH (04:04)
[2023-12-29 05:30] LABS: Absolute Neutrophil Ct (ANC) 5.03 x10^3/uL (1.56-6.13); BASOPHIL % 0.2 % (0.1-1.2); Basophil (Absolute #) 0.02 x10^3/uL (0.01-0.08); Eosinophil % 1.9 % (0.7-5.8); Eosinophil (Absolute #) 0.16 x10^3/uL (0.04-0.36); Hematocrit 35.3 % (34.1-44.9); Hemoglobin 11.6 g/dL (11.2-15.7); IMMATURE GRAN # 0.03 x10^3u/L (0.001-0.031); IMMATURE GRAN % 0.4 % (0.001-0.429); Lymphocyte (Absolute #) 2.12 x10^3/uL (1.18-3.74); Lymphocytes % 25.2 % (19.3-51.7); Mean Cell Volume 88.7 fL (79.4-94.8); Mean Corpuscular Hemoglobin 29.1 pg (25.6-32.2); Mean Corpuscular Hgb Concent. 32.9 g/dL (32.2-35.5); Mean Platelet Volume 10.1 fL (9.4-12.3); Monocyte (Absolute #) 1.04 x10^3/uL (0.24-0.86); Monocytes % 12.4 % (4.7-12.5); Neutrophil % 59.9 % (34.0-71.1); Platelet Count 261 x10^3/uL (182-369); Red Blood Count 3.98 x10^6/uL (3.93-5.22); Red Cell Distribution Width 12.5 % (11.7-14.4); White Blood Count 8.4 x10^3/uL (3.98-10.04)
[2023-12-29 06:51] VITALS: RESP 16
[2023-12-29] MEDS ORDERED: NON-FORMULARY ITEM (Semaglutide [Ozempic] 2 MG/0.75 ML Pen.Injctr) SQ SCH (08:15)
[2023-12-29] MEDS ORDERED: MEDICATION INTERVENTION MC SCH (08:30)
--- NOTE | 2023-12-29 11:18 | HP ---
PREOPERATIVE DIAGNOSIS: Acute appendicitis. HISTORY OF PRESENT ILLNESS: The patient has had some abdominal pain for about a week. It seems to be a little more localized in the epigastrium and it is not really located in the right lower quadrant, but she does have a CT scan that says she has appendicitis. She is seen and examined in the [facility] [place]. She has not had any recent surgery. PAST MEDICAL HISTORY: She has had 2 previous sections. She has basically no medical problems. She is 58 years old. She denies any cardiac, any blood pressure, any pulmonary issues. FAMILY HISTORY: Negative. PHYSICAL EXAMINATION: GENERAL: Mildly obese. VITAL SIGNS: Normal. CHEST: Clear. CARDIOVASCULAR: Regular rate. ABDOMEN: Mild peritoneal signs. IMPRESSION: Acute appendicitis. PLAN: Laparoscopic appendectomy.
[2023-12-29 11:29] VITALS: BP 103/55; PULSE 97; TEMP 97.4; O2SAT 95
--- NOTE | 2023-12-30 09:11 | OP ---
SURGERY DATE/TIME: 12/28/2023 1825 - 192 PREOPERATIVE DIAGNOSIS: Acute appendicitis. POSTOPERATIVE DIAGNOSIS: Acute appendicitis, gangrenous, nonruptured. PROCEDURE: Laparoscopic appendectomy. SURGEON: Ford Griggs MD ANESTHESIA: General. COMPLICATIONS: None. CONDITION: Stable. DESCRIPTION OF PROCEDURE AND FINDINGS: Patient was taken to surgery. General anesthetic. Routine prep and drape. Veress needle inserted. Opening pressure of 1. Insufflated to a pressure of 14. There were some adhesions in the midline in the lower abdomen from her previous sections. The appendix was gangrenous with some purulence as well. It was able to be mobilized, and then the base was taken with a single cartridge, 2.5 vascular, right up against the cecum. Staple line appeared to be well sealed. The area was irrigated and suctioned several times, but there had been no spillage, but it was frankly gangrenous and black. The right gutter was satisfactory. It was irrigated and suctioned, both in the pelvis and then along the upper portion. Closure device was used at the 12 site, 0 Vicryl. CO2 was exsufflated. Skin closed with monika. Sterile dressing applied. Patient tolerated the procedure satisfactorily.
== END 2023-12-29 15:36 | disposition home or self-care (01) ==
LOC: ED 12:56 → MED SURG 19:55
PROVIDERS: ADMIT Surgery; ATTEND Surgery
DX: K35.80 Unspecified acute appendicitis (principal); R11.2 Nausea with vomiting, unspecified; Z79.899 Other long term (current) drug therapy
CPT/HCPCS: 0241U; 36000; 36415; 44970; 74176; 80053; 81001; 82150; 82947; 83605; 83690; 84484; 85025; 86308; 87040; 93005; 96374; 96375; 99285; 99291; J0330; J0694; J1170; J1885; J1956; J2250; J2405; J2704; J3010; A9270-GY